=== PATIENT | male | born 1950 | race Caucasian/White ===

== ENCOUNTER → 2016-10-03 | Outpatient (CLI) | payer BC ==
[~2016-10-03] MED LIST: HYDC25 PO; IBUP-1050 PO; LISI20TA3 PO; PRLSR20 PO; RXC5 PO; SIMV40TA2 PO; SIMV80TA2 PO
[2016-10-03 13:46] LABS: ESTIMATED AVERAGE GLUCOSE 123 mg/dl; HA1C FLAG Normal (Normal)
[2016-10-03 13:48] LABS: BLOOD UREA NITROGEN 15 mg/dl (7-18); CREATININE 0.92 mg/dl (0.60-1.40); GLUCOSE 101 mg/dl (70-99)
[2016-10-03 13:49] LABS: ALT/SGPT 22 U/L (12-78); AST/SGOT 14 U/L (15-37); BUN/CREATININE RATIO 15.8 (10-20); CALCIUM 9.1 mg/dl (8.5-10.1); CARBON DIOXIDE 29 mmol/L (21-32); CHLORIDE 102 mmol/L (98-107); CHOLESTEROL 151 mg/dl (0-200); POTASSIUM 3.8 mmol/L (3.5-5.1); SODIUM 140 mmol/L (136-145); TRIGLYCERIDES 90 mg/dl (0-150); VERY LOW DENSITY LIPOPROT CALC 18 mg/dl
[2016-10-03 13:52] LABS: ALB/GLOB RATIO 1.3 (0.9-2); ALKALINE PHOSPHATASE 38 U/L (45-117); CHOLESTEROL/HDL RATIO 2.6; HDL CHOLESTEROL 58 mg/dl
== END | disposition home or self-care (01) ==
LOC: C.LABSPEC 12:31
PROVIDERS: ATTEND Internal Medicine
DX: Z11.59 Encounter for screening for other viral diseases (principal); I10 Essential (primary) hypertension; E78.5 Hyperlipidemia, unspecified; R73.9 Hyperglycemia, unspecified

== ENCOUNTER → 2016-10-31 | Day surgery (SDC) | payer BC ==
[2016-10-23 09:43] VITALS: Ht 165.1 cm; Wt 102.3 kg
[~2016-10-31] VITALS: Ht 165.1 cm; Wt 102.3 kg
[~2016-10-31] MED LIST changes: -IBUP-1050 PO; +LIDOCAINE HCL 2% 2 ML VIAL (20MG/ML) ONE; +PROPOFOL IV EMULSION 10 MG/ML 20 ML VIAL IV ONE; -RXC5 PO; -SIMV80TA2 PO
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
--- NOTE | 2016-10-31 14:47 | Discharge Instructions ---
Endoscopy Patient Instructions Date / Procedure(s) Performed Oct 31, 2016. Colonoscopy Allergy Information Coded Allergies: No Known Allergies (Verified , 10/23/16) Discharge Date / Findings Oct 31, 2016. polyp, diverticulosis Medication Instructions Restart Stopped Medication(s): resume meds Reported Home Medications Medications Dose Route/Sig Max Daily Dose Days Date Category Zocor (Simvastatin) 40 Mg Tab 40 Mg PO QPM 10/23/16 Reported Hctz * (Hydrochlorothiazide) 25 Mg Tab 25 Mg PO QAM 06/10/11 Reported Prilosec (Omeprazole) 20 Mg Capcr 20 Mg PO QAM 06/10/11 Reported Prinivil (Lisinopril) 20 Mg Tab 20 Mg PO QAM 06/10/11 Reported Provider Instructions Activity Restrictions - No exercising or heavy lifting for 24 hours. - Do not drink alcohol the day of the procedure. - Do not drive a car or operate machinery until the day after the procedure. - Do not make any important decisions or sign important papers in 24 hours after the procedure. Following Day: - Return to full activity which may include returning to work/school. Diet Start your diet with liquids and light foods (jello, soup, juice, toast). Then eat your usual diet if not nauseated. Treatment For Common After Affects For mild abdominal pain, bloating, or excessive gas: - Rest - Eat lightly - Lie on right side Follow-Up Information Follow-up with Dr. Arevalo as scheduled Anesthesia Information What You Should Know You have had a procedure that required some medicine to reduce anxiety and discomfort. This treatment is called moderate sedation. After receiving the treatment, you may be sleepy, but you will be able to breathe on your own. The effects of the treatment may last for several hours. Follow these instructions along with Activity/Diet recommendations noted above: * Do NOT do anything where dizziness or clumsiness would be dangerous. * Rest quietly at home today, then you can be up and about tomorrow. * Have a responsible person stay with you the rest of today. * You may have had an I.V. today. If so, you may take the dressing off later today. Recommendations Call your doctor if: * Trouble breathing * Continuous vomiting for more than 24 hours * Temperature above 101 degrees * Severe abdominal pain or bloating * Pain not relieved by pain medicine ordered * There is increased drainage or redness from any incision * A large amount of rectal bleeding greater than 2-3 tablespoons. (If you had a polyp/s removed or have hemorrhoids, a small amount of blood - from the rectum is to be expected.) * You have any unanswered questions or concerns. IN THE EVENT OF A SERIOUS EMERGENCY, GO TO THE NEAREST EMERGENCY ROOM Your discharge instructions were prepared by provider Emmanuel Arellano. Patient Instructions Signature Page Milton Martinez Patient (or Guardian) Signature/Date: I have read and understand the instructions given to me by my caregivers. Caregiver/RN/Doctor Signature/Date: The above-named patient and/or guardian has received patient instructions on this date. + Original Patient Signature Page (only) stays with chart. Please make copy for patient.
--- NOTE | 2016-10-31 14:50 | GI REPORT ---
Procedure Date: 10/31/2016 1:50 PM Procedure: Colonoscopy Indications: Screening for colorectal malignant neoplasm Medicines: Propofol total dose 280 mg IV, Lidocaine 40 mg IV Complications: No immediate complications. Estimated Blood Loss: Estimated blood loss was minimal. Procedure: Pre-Anesthesia Assessment: - Prior to the procedure, a History and Physical was performed, and patient medications, allergies and sensitivities were reviewed. The patient's tolerance of previous anesthesia was reviewed. - The risks and benefits of the procedure and the sedation options and risks were discussed with the patient. All questions were answered and informed consent was obtained. After I obtained informed consent, the scope was passed under direct vision. Throughout the procedure, the patient's blood pressure, pulse, and oxygen saturations were monitored continuously. The Scope was introduced through the anus and advanced to the terminal ileum. The colonoscopy was performed without difficulty. The patient tolerated the procedure well. The quality of the bowel preparation was excellent. Findings: A 5 mm polyp was found in the proximal ascending colon. The polyp was sessile. The polyp was removed with a hot snare. Resection and retrieval were complete. To prevent bleeding post-intervention, one hemostatic clip was successfully placed (MR conditional). There was no bleeding at the end of the procedure. Estimated blood loss was minimal. Multiple diverticula were found in the sigmoid colon. The terminal ileum appeared normal. Impression: - One 5 mm polyp in the proximal ascending colon, removed with a hot snare. Resected and retrieved. Clip (MR conditional) was placed. - Diverticulosis in the sigmoid colon. - The examined portion of the ileum was normal. Recommendation: - Discharge patient to home (ambulatory). - Continue present medications. - Await pathology results. - Return to primary care physician PRN. Emmanuel Arellano M.D. Emmanuel Arellano MD 10/31/2016 2:49:19 PM This report has been signed electronically. Note Initiated On: 10/31/2016 1:50 PM I attest to the content of the Intraoperative Record and orders documented therein, exceptions below
--- NOTE | 2016-10-31 14:59 | Anesthesiology Progress Note ---
Anesthesia Post Op Note Date & Time Oct 31, 2016 at 14:58 Vital Signs Pain Intensity: 0 Vital Signs Past 12 Hours Date Time Temp Pulse Resp B/P Pulse Ox O2 Delivery O2 Flow Rate FiO2 10/31/16 14:48 72 20 129/67 95 Room Air 10/31/16 13:44 36.6 90 20 142/89 94 Room Air Notes Mental Status: alert / awake / arousable, participated in evaluation Pt Amnestic to Procedure: Yes Nausea / Vomiting: adequately controlled Pain: adequately controlled Airway Patency, RR, SpO2: stable & adequate BP & HR: stable & adequate Hydration State: stable & adequate Anesthetic Complications: no major complications apparent
[2016-10-31 15:35] VITALS: BP 158/87; PULSE 74; O2SAT 95
== END | disposition home or self-care (01) ==
LOC: C.GI 13:27
PROVIDERS: ATTEND Internal Medicine Gastroenterology
DX: Z12.11 Encounter for screening for malignant neoplasm of colon (principal); D12.2 Benign neoplasm of ascending colon; K57.30 Diverticulosis of large intestine without perforation or abscess without bleeding; Z79.899 Other long term (current) drug therapy

== ENCOUNTER → 2017-04-06 | Outpatient (CLI) | payer BC ==
[~2017-04-06] MED LIST changes: -LIDOCAINE HCL 2% 2 ML VIAL (20MG/ML) ONE; -PROPOFOL IV EMULSION 10 MG/ML 20 ML VIAL IV ONE
[2017-04-06 13:15] LABS: BLOOD UREA NITROGEN 14 mg/dl (7-18); BUN/CREATININE RATIO 15.2 (10-20); CALCIUM 9.4 mg/dl (8.5-10.1); CARBON DIOXIDE 29 mmol/L (21-32); CHLORIDE 101 mmol/L (98-107); CHOLESTEROL 170 mg/dl (0-200); CREATININE 0.91 mg/dl (0.60-1.40); GLUCOSE 90 mg/dl (70-99); POTASSIUM 3.9 mmol/L (3.5-5.1); SODIUM 138 mmol/L (136-145); TRIGLYCERIDES 133 mg/dl (0-150); VERY LOW DENSITY LIPOPROT CALC 27 mg/dl
[2017-04-06 13:18] LABS: CHOLESTEROL/HDL RATIO 2.9; HDL CHOLESTEROL 59 mg/dl
[2017-04-06 13:31] LABS: ESTIMATED AVERAGE GLUCOSE 126 mg/dl; HA1C FLAG Normal (Normal)
== END | disposition home or self-care (01) ==
LOC: C.LABSPEC 12:31
PROVIDERS: ATTEND Internal Medicine
DX: I10 Essential (primary) hypertension (principal); E78.5 Hyperlipidemia, unspecified; R73.9 Hyperglycemia, unspecified

== ENCOUNTER → 2017-06-05 | Outpatient (CLI) | payer BC ==
[2017-06-05 12:10] LABS: BASO % 0.1 %; BASO ABS # 0.02 K/uL (0-0.2); COMPLETE YES; EOS % 0.9 %; HEMATOCRIT 42.8 % (42-52); IG% 1.7 %; LYMPH % 18.1 %; LYMPH ABS # 3.58 K/uL (1.2-3.4); MEAN CELL VOLUME 92.8 fL (80-100); MEAN CORPUSCULAR HEMOGLOBIN 31.2 pg (25-34); MEAN CORPUSCULAR HGB CONC 33.6 g/dl (32-36); MEAN PLATELET VOLUME 9.4 fL (7.4-10.4); MONO % 9.8 %; NEUT % 69.4 %; PLATELET COUNT 215 K/uL (130-400); RED BLOOD COUNT 4.61 M/uL (4.7-6.1)
[2017-06-05 12:50] LABS: LYME DISEASE AB IGG NEG (NEG); LYME DISEASE AB IGM NEG (NEG)
== END | disposition home or self-care (01) ==
LOC: C.LAB 10:31
PROVIDERS: ATTEND Physician Assistant
DX: H91.21 Sudden idiopathic hearing loss, right ear (principal)

== ENCOUNTER → 2017-10-07 | Outpatient (CLI) | payer BC ==
[2017-10-07 13:15] LABS: BASO % 0.2 %; BASO ABS # 0.02 K/uL (0-0.2); EOS ABS # 0.17 K/uL (0-0.5); HEMOGLOBIN 14.5 g/dL (14.0-18.0); IG# 0.05 K/uL (0.00-0.02); LYMPH % 31.5 %; LYMPH ABS # 2.72 K/uL (1.2-3.4); MEAN CELL VOLUME 92.4 fL (80-100); MEAN CORPUSCULAR HEMOGLOBIN 30.5 pg (25-34); MEAN PLATELET VOLUME 10.6 fL (7.4-10.4); MONO % 8.1 %; NEUT % 57.6 %; NEUT ABS # 4.98 K/uL (1.4-6.5); PLATELET COUNT 220 K/uL (130-400); RED CELL DISTRIBUTION WIDTH CV 13.7 % (11.5-14.5); RED CELL DISTRIBUTION WIDTH SD 46.1 fL (36.4-46.3); WHITE BLOOD COUNT 8.64 K/uL (4.8-10.8)
[2017-10-07 13:24] LABS: ALT/SGPT 31 U/L (12-78); AST/SGOT 15 U/L (15-37); BLOOD UREA NITROGEN 19 mg/dl (7-18); CALCIUM 9.1 mg/dl (8.5-10.1); CARBON DIOXIDE 30 mmol/L (21-32); CHOLESTEROL 175 mg/dl (0-200); CREATININE 0.95 mg/dl (0.60-1.40); GLUCOSE 95 mg/dl (70-99); POTASSIUM 3.8 mmol/L (3.5-5.1); SODIUM 137 mmol/L (136-145)
[2017-10-07 13:26] LABS: ALKALINE PHOSPHATASE 40 U/L (45-117); LDL CHOLESTEROL (DIRECT) 93 mg/dl; TOTAL PROTEIN 7.2 gm/dl (6.4-8.2)
== END | disposition home or self-care (01) ==
LOC: C.LABSPEC 12:40
PROVIDERS: ATTEND Internal Medicine
DX: I10 Essential (primary) hypertension (principal); E78.5 Hyperlipidemia, unspecified; R73.9 Hyperglycemia, unspecified; D72.829 Elevated white blood cell count, unspecified

== ENCOUNTER → 2018-02-12 | Outpatient (CLI) | payer OTHER ==
[2018-02-12 14:11] LABS: BASO % 0.4 %; BASO ABS # 0.03 K/uL (0-0.2); EOS ABS # 0.24 K/uL (0-0.5); HEMATOCRIT 40.9 % (42-52); HEMOGLOBIN 13.5 g/dL (14.0-18.0); IG# 0.04 K/uL (0.00-0.02); LYMPH % 33.9 %; LYMPH ABS # 2.75 K/uL (1.2-3.4); MEAN CELL VOLUME 93.6 fL (80-100); MEAN CORPUSCULAR HEMOGLOBIN 30.9 pg (25-34); MEAN PLATELET VOLUME 10.3 fL (7.4-10.4); MONO ABS # 0.57 K/uL (0.11-0.59); NEUT % 55.2 %; NEUT ABS # 4.49 K/uL (1.4-6.5); PLATELET COUNT 202 K/uL (130-400); RED CELL DISTRIBUTION WIDTH CV 13.8 % (11.5-14.5); RED CELL DISTRIBUTION WIDTH SD 47.5 fL (36.4-46.3); WHITE BLOOD COUNT 8.12 K/uL (4.8-10.8)
[2018-02-12 14:49] LABS: ALBUMIN 3.8 gm/dl (3.4-5.0); ALKALINE PHOSPHATASE 36 U/L (45-117); ALT/SGPT 30 U/L (12-78); AST/SGOT 21 U/L (15-37); BLOOD UREA NITROGEN 19 mg/dl (7-18); CALCIUM 8.8 mg/dl (8.5-10.1); CARBON DIOXIDE 28 mmol/L (21-32); CREATININE 0.93 mg/dl (0.60-1.40); GLUCOSE 150 mg/dl (70-99); POTASSIUM 3.8 mmol/L (3.5-5.1); SODIUM 140 mmol/L (136-145)
== END | disposition home or self-care (01) ==
LOC: C.LABSPEC 13:02
PROVIDERS: ATTEND Internal Medicine
DX: R60.9 Edema, unspecified (principal)

== ENCOUNTER → 2018-02-15 | Outpatient (CLI) | payer OTHER ==
--- NOTE | 2018-02-15 13:00 | DIAGNOSTIC IMAGING REPORT ---
ULTRASOUND VENOUS DOPPLER LWR EXT BILA CLINICAL HISTORY: BILATERAL LEG SWELLING COMPARISON STUDY: No previous studies for comparison. FINDINGS: Real-time and color flow Doppler imaging were performed. Flow was seen within the femoral, popliteal and calf veins with no intraluminal thrombus demonstrated. The saphenous vein is patent. IMPRESSION: No evidence of lower extremity DVT. Electronically signed by: Ant Montes M.D. 02/15/2018 12:59 PM Dictated Date/Time: 02/15/2018 12:59 PM
== END | disposition home or self-care (01) ==
LOC: C.ULTRBC 12:24
PROVIDERS: ATTEND Internal Medicine
DX: R60.0 Localized edema (principal)

== ENCOUNTER 2020-05-21 15:55 | Inpatient (IN) ==
[2020-05-21] MEDS ORDERED: DEXAMETHASONE SOD PHOSPHATE 6 MG in SYRINGE 0 ML IV STA (16:23)
[2020-05-21] MEDS ORDERED: ALBUT/IPRATROP 3MG/0.5MG NEB 3 ML VIAL NEB STA ×2 (16:23→16:24)
--- NOTE | 2020-05-21 16:30 | Emergency Department Note ---
History of Present Illness General Chief complaint: Illness Stated complaint: DOUBLE PNEUMONIA Time Seen by Provider: 05/21/20 16:06 History of Present Illness Provider complaint: Cough difficulty breathing Onset (ago): day(s) 3 Location: chest Maximum Pain Intensity: 7 Associated symptoms: + cough and + shortness of breath; no fever/chills and no syncope 69-year-old male presents emergency department for difficulty breathing and cough. Patient was sent by his PCP Dr. Arevalo who diagnosed him with bilateral pneumonia. Patient states he has been having difficulty breathing cough the last 3 days. He reports no fevers. He does report diarrhea. He reports his is also been sick at home. His has had loss of taste and smell. Patient was tested for COVID-[address] Arevalo's office today. No history of COPD or CHF. Home Medications Home Medications Medication Instructions Recorded Confirmed Type furosemide 40 mg PO DAILY 05/21/20 05/21/20 History lisinopril 20 mg PO DAILY 05/21/20 05/21/20 History omeprazole 20 mg PO DAILY 05/21/20 05/21/20 History potassium chloride 10 meq PO BID 05/21/20 05/21/20 History simvastatin 80 mg PO DAILY 05/21/20 05/21/20 History tamsulosin 0.4 mg PO DAILY 05/21/20 05/21/20 History Allergies Allergy/AdvReac Type Severity Reaction Status Date / Time No Known Allergies Allergy Unknown Verified 05/21/20 18:06 Past Med/Surg History Medical History (Updated 05/21/20 @ 21:48 by Bill Mcqueen) HLD (hyperlipidemia) HTN (hypertension) No pertinent family history Surgical History (Updated 05/21/20 @ 17:35 by Bill Mcqueen) No pertinent past surgical history Social History Smoking Status: Never smoker Feels Safe at Home: Yes Review of Systems A total of 10 systems reviewed and were otherwise negative Physical Exam Vital Signs Vital Signs - 24 hr 05/21/20 16:05 05/21/20 16:25 05/21/20 16:33 Temperature 36.5 C Temperature Source Oral Pulse Rate 99 H Pulse Rate [Right Finger] 99 H 99 H Pulse Rate from SpO2 Sensor Respiratory Rate 26 H 22 20 Respiratory Effort / Characteristics Spontaneous Spontaneous Blood Pressure 175/112 H Blood Pressure Mean 133 Blood Pressure Position Sitting Pulse Oximetry 55 L 90 90 Oxygen Delivery Method Room Air High Flow Nasal Cannula High Flow Nasal Cannula Oxygen Flow Rate 30 30 Fraction of Inspired Oxygen 60 60 Sepsis Recent Fever Within 48 Hours Yes Sepsis New/Unexplained Change in Mental Status No Sepsis Action Taken by Nursing No Action Required 05/21/20 16:41 05/21/20 16:45 05/21/20 16:49 Temperature Temperature Source Pulse Rate 96 H 96 H Pulse Rate [Right Finger] Pulse Rate from SpO2 Sensor 96 H 96 H Respiratory Rate 21 21 Respiratory Effort / Characteristics Spontaneous Blood Pressure 169/105 H 163/89 H Blood Pressure Mean 114 114 Blood Pressure Position Pulse Oximetry 93 92 93 Oxygen Delivery Method High Flow Nasal Cannula Oxygen Flow Rate Fraction of Inspired Oxygen Sepsis Recent Fever Within 48 Hours Sepsis New/Unexplained Change in Mental Status Sepsis Action Taken by Nursing 05/21/20 16:50 05/21/20 17:08 05/21/20 17:15 Temperature Temperature Source Pulse Rate 97 H 97 H Pulse Rate [Right Finger] 100 H Pulse Rate from SpO2 Sensor 97 H Respiratory Rate 22 18 18 Respiratory Effort / Characteristics Spontaneous Blood Pressure 163/92 H Blood Pressure Mean 125 Blood Pressure Position Pulse Oximetry 93 93 Oxygen Delivery Method High Flow Nasal Cannula High Flow Nasal Cannula Oxygen Flow Rate 30 30 Fraction of Inspired Oxygen 75 Sepsis Recent Fever Within 48 Hours Sepsis New/Unexplained Change in Mental Status Sepsis Action Taken by Nursing 05/21/20 17:30 05/21/20 17:45 05/21/20 17:46 Temperature Temperature Source Pulse Rate 97 H 107 H 104 H Pulse Rate [Right Finger] Pulse Rate from SpO2 Sensor 97 H 107 H 103 H Respiratory Rate 18 21 18 Respiratory Effort / Characteristics Blood Pressure 179/92 H 186/106 H Blood Pressure Mean 108 156 Blood Pressure Position Pulse Oximetry 95 91 95 Oxygen Delivery Method Oxygen Flow Rate Fraction of Inspired Oxygen Sepsis Recent Fever Within 48 Hours Sepsis New/Unexplained Change in Mental Status Sepsis Action Taken by Nursing 05/21/20 18:01 05/21/20 18:30 Temperature Temperature Source Pulse Rate 106 H 101 H Pulse Rate [Right Finger] Pulse Rate from SpO2 Sensor 105 H 101 H Respiratory Rate 24 19 Respiratory Effort / Characteristics Blood Pressure 162/118 H 166/87 H Blood Pressure Mean 125 111 Blood Pressure Position Pulse Oximetry 91 91 Oxygen Delivery Method High Flow Nasal Cannula Oxygen Flow Rate Fraction of Inspired Oxygen Sepsis Recent Fever Within 48 Hours Sepsis New/Unexplained Change in Mental Status Sepsis Action Taken by Nursing Physical Exam GENERAL: He is oriented to person, place, and time. He appears well-developed and well-nourished. He does not appear distressed. HENT: Exam performed. - Head: Normocephalic and atraumatic. - Right Ear: External ear normal. No mastoid tenderness. - Left Ear: External ear normal. No mastoid tenderness. - Mouth/Throat: The oropharynx is clear and moist. No trismus in the jaw. No dental abscesses or uvula swelling. No oropharyngeal exudate or tonsillar abscesses. EYES: Conjunctivae and EOM are normal. Pupils are equal, round, and reactive to light. Right eye exhibits no discharge. Left eye exhibits no discharge. No scleral icterus. NECK: Normal range of motion. Neck supple. No JVD present. No spinous process tenderness present. No carotid bruit present. No rigidity. No tracheal deviation and normal range of motion present. No Brudzinski's sign and no Kernig's sign noted. CV: Normal rate, regular rhythm, normal heart sounds and intact distal pulses. There is no peripheral edema. Palpable radial pulses bue. PULM/CHEST: Expiratory wheezes bilaterally. - Chest Wall: He exhibits no tenderness. ABD: The abdomen is soft. Bowel sounds are normal. He has no distension. No mass is present. There is no tenderness. There is no rebound, no guarding, no Schroeder's sign and no tenderness at McBurney's point. Rovsig negative. MUSC/SKEL: Normal range of motion. There is no peripheral edema, tenderness or deformity. LYMPH: No cervical adenopathy. NEURO: He is alert and oriented to person, place, and time. He has normal strength. No cranial nerve deficit or sensory deficit. Coordination and gait normal. GCS eye subscore is 4. GCS verbal subscore is 5. GCS motor subscore is 6. Cerebellar tests wnl. SKIN: Skin is warm and dry. He is not diaphoretic. PSYCH: He has a normal mood and affect. Behavior is normal. Judgment and thought content normal. Course Course 160: The patient was evaluated in room A4. A complete history and physical exam was performed. Patient was seen in full airborne precautions. Patient was placed on environmental monitoring specialist and continuous pulse oximetry. Patient's oxygen saturation on room air was 55%. Patient was placed on 6 L Ventimask which only improved his oxygen saturation 85% oxygen saturation. Respiratory therapy was called and asked to start the patient on high flow nasal cannula. There is high suspicion that the patient might be suffering from COVID-19 given his symptoms as well as symptoms. Patient will be given 2 DuoNeb's. Decadron 6 mg IV push was immediately ordered for the patient. Cardiac monitoring: An order was placed for continuous cardiac monitoring. The monitor shows a rate of 90 with sinus rhythm 1730: Patient's oxygen saturation was going into the 80s on 60% oxygen via high flow nasal cannula. Patient's ABG showed a PO2 of 64. And oxygen saturation of 90.9. Patient was switched to 90% oxygen high flow nasal cannula which improved his oxygen saturation. 1810: Patient is not tachypneic. He is he is in no respiratory distress and tolerating the high flow nasal cannula well. Patient's pulse oximetry is 95% over 90% high flow oxygen. ABG showed a PO2 of 68 and AV O2 saturation of 92.5%. 1910: Vital signs stable on high flow oxygen via nasal cannula. Patient is not tachypneic on high flow oxygen nasal cannula. CTA of the chest shows no PE but does show multifocal airspace opacities throughout both lungs. Patient was COVID-19 positive. Patient will be admitted to the [facility] team Dr. Cho made aware. Administered Medications Discontinued Medications Albuterol (Albut/Ipratrop 3mg/0.5mg Neb 3 Ml Vial) 3 ml NEB NOW STA Stop: 05/21/20 16:24 Last Admin: 05/21/20 16:33 Dose: 3 ml Documented by: [id number] Albuterol (Albut/Ipratrop 3mg/0.5mg Neb 3 Ml Vial) 3 ml NEB NOW STA Stop: 05/21/20 16:25 Last Admin: 05/21/20 16:33 Dose: 3 ml Documented by: [id number] Dexamethasone Sodium Phosphate (6 mg/ Syringe) 1.5 mls @ 1 mls/min IV NOW STA Stop: 05/21/20 16:24 Last Admin: 05/21/20 16:37 Dose: 1 mls/min Documented by: [id number] Ioversol (Optiray 320 125ml) 118 ml IV ONCE ONE Stop: 05/21/20 17:38 Last Admin: 05/21/20 17:37 Dose: 1 ml Documented by: [id number] Critical Care Time Critical Care Time: Yes Total Critical Care Time: 76 I have personally spent greater than 76 minutes of critical care time in the direct management of this patient. This includes bedside care, interpretation of diagnostic studies, and testing, discussion with consultants, patient, and family members, and other required patient management activities. This 76 minutes is in excess of all separately billable procedures. Medical Decision Making Laboratory Data Result diagrams: 05/21/20 16:23 05/21/20 16:23 Lab Results 05/21/20 05/21/20 05/21/20 Range/Units 16:23 16:23 16:23 WBC 9.44 (4.8-10.8) K/uL RBC 4.08 L (4.7-6.1) M/uL Hgb 12.4 L (14.0-18.0) g/dL POC Hgb (14.0-18.0) g/dl Hct 38.0 L (42-52) % POC Hct (42-52) % MCV 93.1 (80-100) fL MCH 30.4 (25-34) pg MCHC 32.6 (32-36) g/dL RDW Std Deviation 49.2 H (36.4-46.3) fL RDW Coeff of Keenan 14.5 (11.5-14.5) % Plt Count 204 (130-400) K/uL MPV 10.1 (7.4-10.4) fL Immature Gran % (Auto) 1.0 % Neut % (Auto) 84.4 % Lymph % (Auto) 11.1 % [place] % (Auto) 3.4 % Eos % (Auto) 0.0 % Baso % (Auto) 0.1 % Neut # (Auto) 7.97 H (1.4-6.5) K/uL Lymph # (Auto) 1.05 L (1.2-3.4) K/uL [place] # (Auto) 0.32 (0.11-0.59) K/uL Eos # (Auto) 0.00 (0-0.5) K/uL Baso # (Auto) 0.01 (0-0.2) K/uL Immature Gran # (Auto) 0.09 H (0.00-0.02) K/uL PT 10.7 (9.0-12.0) Seconds INR 1.0 (0.9-1.1) APTT 29.8 (21.0-31.0) Seconds PTT Ratio 1.1 ABG pH (7.35-7.45) ABG pCO2 (35-46) mmHg ABG pO2 (80-95) mmHg ABG HCO3 (19-24) mmol/L ABG O2 Saturation (90-95) % ABG Base Excess (-9-1.8) mEq/L Jaden Test (Pos) Barometric Pressure mm/Hg Oxygen Given POC Sodium (135-144) mmol/L Sodium 137 (136-145) mmol/L POC Potassium (3.3-5.0) mmol/L Potassium 4.1 (3.5-5.1) mmol/L POC Chloride (101-112) mmol/L Chloride 104 (98-107) mmol/L Carbon Dioxide 27 (21-32) mmol/L POC Total CO2 (24-31) mmol/L Anion Gap 6.0 (3-11) POC Anion Gap (16-25) mmol/L POC BUN (7-18) mg/dl BUN 12 (7-18) mg/dl Creatinine 1.01 (0.6-1.4) mg/dl POC Creatinine (0.6-1.3) mg/dl Est Cr Clr Drug Dosing 89.2 ml/min Est GFR ( Amer) 88.8 Est GFR (Non-Af Amer) 76.6 BUN/Creatinine Ratio 11.8 (10-20) Glucose 130 H (70-99) mg/dl POC Glucose (other) (70-99) mg/dl Lactate (0.4-2.0) mmol/L Calcium 8.2 L (8.5-10.1) mg/dl POC Ioniz Calcium Ej (1.12-1.32) mmol/l Magnesium 1.7 L (1.8-2.4) mg/dl Total Bilirubin 0.4 (0.2-1) mg/dl AST 79 H (15-37) U/L ALT 68 (12-78) U/L Alkaline Phosphatase 42 L (45-117) U/L Troponin I 0.029 (0-0.045) ng/ml NT-Pro-B Natriuret Pep 391 (0-900) pg/ml Total Protein 7.2 (6.4-8.2) gm/dl Albumin 2.7 L (3.4-5.0) gm/dl Globulin 4.5 H (2.5-4.0) gm/dl Albumin/Globulin Ratio 0.6 L (0.9-2) Procalcitonin (0-0.5) ng/ml COVID-19 Eval Order COVID-19 PCR (Negative) 05/21/20 05/21/20 05/21/20 Range/Units 16:23 16:23 16:29 WBC (4.8-10.8) K/uL RBC (4.7-6.1) M/uL Hgb (14.0-18.0) g/dL POC Hgb (14.0-18.0) g/dl Hct (42-52) % POC Hct (42-52) % MCV (80-100) fL MCH (25-34) pg MCHC (32-36) g/dL RDW Std Deviation (36.4-46.3) fL RDW Coeff of Keenan (11.5-14.5) % Plt Count (130-400) K/uL MPV (7.4-10.4) fL Immature Gran % (Auto) % Neut % (Auto) % Lymph % (Auto) % [place] % (Auto) % Eos % (Auto) % Baso % (Auto) % Neut # (Auto) (1.4-6.5) K/uL Lymph # (Auto) (1.2-3.4) K/uL [place] # (Auto) (0.11-0.59) K/uL Eos # (Auto) (0-0.5) K/uL Baso # (Auto) (0-0.2) K/uL Immature Gran # (Auto) (0.00-0.02) K/uL PT (9.0-12.0) Seconds INR (0.9-1.1) APTT (21.0-31.0) Seconds PTT Ratio ABG pH (7.35-7.45) ABG pCO2 (35-46) mmHg ABG pO2 (80-95) mmHg ABG HCO3 (19-24) mmol/L ABG O2 Saturation (90-95) % ABG Base Excess (-9-1.8) mEq/L Jaden Test (Pos) Barometric Pressure mm/Hg Oxygen Given POC Sodium (135-144) mmol/L Sodium (136-145) mmol/L POC Potassium (3.3-5.0) mmol/L Potassium (3.5-5.1) mmol/L POC Chloride (101-112) mmol/L Chloride (98-107) mmol/L Carbon Dioxide (21-32) mmol/L POC Total CO2 (24-31) mmol/L Anion Gap (3-11) POC Anion Gap (16-25) mmol/L POC BUN (7-18) mg/dl BUN (7-18) mg/dl Creatinine (0.6-1.4) mg/dl POC Creatinine (0.6-1.3) mg/dl Est Cr Clr Drug Dosing ml/min Est GFR ( Amer) Est GFR (Non-Af Amer) BUN/Creatinine Ratio (10-20) Glucose (70-99) mg/dl POC Glucose (other) (70-99) mg/dl Lactate 1.7 (0.4-2.0) mmol/L Calcium (8.5-10.1) mg/dl POC Ioniz Calcium Ej (1.12-1.32) mmol/l Magnesium (1.8-2.4) mg/dl Total Bilirubin (0.2-1) mg/dl AST (15-37) U/L ALT (12-78) U/L Alkaline Phosphatase (45-117) U/L Troponin I (0-0.045) ng/ml NT-Pro-B Natriuret Pep (0-900) pg/ml Total Protein (6.4-8.2) gm/dl Albumin (3.4-5.0) gm/dl Globulin (2.5-4.0) gm/dl Albumin/Globulin Ratio (0.9-2) Procalcitonin 0.07 (0-0.5) ng/ml COVID-19 Eval Order Covid19 Done at [facility] COVID-19 PCR (Negative) 05/21/20 05/21/20 05/21/20 Range/Units 16:29 16:37 16:40 WBC (4.8-10.8) K/uL RBC (4.7-6.1) M/uL Hgb (14.0-18.0) g/dL POC Hgb 14.3 (14.0-18.0) g/dl Hct (42-52) % POC Hct 42 (42-52) % MCV (80-100) fL MCH (25-34) pg MCHC (32-36) g/dL RDW Std Deviation (36.4-46.3) fL RDW Coeff of Keenan (11.5-14.5) % Plt Count (130-400) K/uL MPV (7.4-10.4) fL Immature Gran % (Auto) % Neut % (Auto) % Lymph % (Auto) % [place] % (Auto) % Eos % (Auto) % Baso % (Auto) % Neut # (Auto) (1.4-6.5) K/uL Lymph # (Auto) (1.2-3.4) K/uL [place] # (Auto) (0.11-0.59) K/uL Eos # (Auto) (0-0.5) K/uL Baso # (Auto) (0-0.2) K/uL Immature Gran # (Auto) (0.00-0.02) K/uL PT (9.0-12.0) Seconds INR (0.9-1.1) APTT (21.0-31.0) Seconds PTT Ratio ABG pH 7.38 (7.35-7.45) ABG pCO2 44 (35-46) mmHg ABG pO2 64 L (80-95) mmHg ABG HCO3 25 H (19-24) mmol/L ABG O2 Saturation 90.9 (90-95) % ABG Base Excess 0.2 (-9-1.8) mEq/L Jaden Test Pos (Pos) Barometric Pressure 735.0 mm/Hg Oxygen Given 60% POC Sodium 138 (135-144) mmol/L Sodium (136-145) mmol/L POC Potassium 4.0 (3.3-5.0) mmol/L Potassium (3.5-5.1) mmol/L POC Chloride 100 L (101-112) mmol/L Chloride (98-107) mmol/L Carbon Dioxide (21-32) mmol/L POC Total CO2 26 (24-31) mmol/L Anion Gap (3-11) POC Anion Gap 17.0 (16-25) mmol/L POC BUN 12 (7-18) mg/dl BUN (7-18) mg/dl Creatinine (0.6-1.4) mg/dl POC Creatinine 0.9 (0.6-1.3) mg/dl Est Cr Clr Drug Dosing ml/min Est GFR ( Amer) Est GFR (Non-Af Amer) BUN/Creatinine Ratio (10-20) Glucose (70-99) mg/dl POC Glucose (other) 135 H (70-99) mg/dl Lactate (0.4-2.0) mmol/L Calcium (8.5-10.1) mg/dl POC Ioniz Calcium Ej 1.06 L (1.12-1.32) mmol/l Magnesium (1.8-2.4) mg/dl Total Bilirubin (0.2-1) mg/dl AST (15-37) U/L ALT (12-78) U/L Alkaline Phosphatase (45-117) U/L Troponin I (0-0.045) ng/ml NT-Pro-B Natriuret Pep (0-900) pg/ml Total Protein (6.4-8.2) gm/dl Albumin (3.4-5.0) gm/dl Globulin (2.5-4.0) gm/dl Albumin/Globulin Ratio (0.9-2) Procalcitonin (0-0.5) ng/ml COVID-19 Eval Order COVID-19 PCR POSITIVE A* (Negative) 05/21/20 Range/Units 18:07 WBC (4.8-10.8) K/uL RBC (4.7-6.1) M/uL Hgb (14.0-18.0) g/dL POC Hgb (14.0-18.0) g/dl Hct (42-52) % POC Hct (42-52) % MCV (80-100) fL MCH (25-34) pg MCHC (32-36) g/dL RDW Std Deviation (36.4-46.3) fL RDW Coeff of Keenan (11.5-14.5) % Plt Count (130-400) K/uL MPV (7.4-10.4) fL Immature Gran % (Auto) % Neut % (Auto) % Lymph % (Auto) % [place] % (Auto) % Eos % (Auto) % Baso % (Auto) % Neut # (Auto) (1.4-6.5) K/uL Lymph # (Auto) (1.2-3.4) K/uL [place] # (Auto) (0.11-0.59) K/uL Eos # (Auto) (0-0.5) K/uL Baso # (Auto) (0-0.2) K/uL Immature Gran # (Auto) (0.00-0.02) K/uL PT (9.0-12.0) Seconds INR (0.9-1.1) APTT (21.0-31.0) Seconds PTT Ratio ABG pH 7.36 (7.35-7.45) ABG pCO2 44 (35-46) mmHg ABG pO2 68 L (80-95) mmHg ABG HCO3 24 (19-24) mmol/L ABG O2 Saturation 92.5 (90-95) % ABG Base Excess -1.7 (-9-1.8) mEq/L Jaden Test Pos (Pos) Barometric Pressure 734.9 mm/Hg Oxygen Given 90% POC Sodium (135-144) mmol/L Sodium (136-145) mmol/L POC Potassium (3.3-5.0) mmol/L Potassium (3.5-5.1) mmol/L POC Chloride (101-112) mmol/L Chloride (98-107) mmol/L Carbon Dioxide (21-32) mmol/L POC Total CO2 (24-31) mmol/L Anion Gap (3-11) POC Anion Gap (16-25) mmol/L POC BUN (7-18) mg/dl BUN (7-18) mg/dl Creatinine (0.6-1.4) mg/dl POC Creatinine (0.6-1.3) mg/dl Est Cr Clr Drug Dosing ml/min Est GFR ( Amer) Est GFR (Non-Af Amer) BUN/Creatinine Ratio (10-20) Glucose (70-99) mg/dl POC Glucose (other) (70-99) mg/dl Lactate (0.4-2.0) mmol/L Calcium (8.5-10.1) mg/dl POC Ioniz Calcium Ej (1.12-1.32) mmol/l Magnesium (1.8-2.4) mg/dl Total Bilirubin (0.2-1) mg/dl AST (15-37) U/L ALT (12-78) U/L Alkaline Phosphatase (45-117) U/L Troponin I (0-0.045) ng/ml NT-Pro-B Natriuret Pep (0-900) pg/ml Total Protein (6.4-8.2) gm/dl Albumin (3.4-5.0) gm/dl Globulin (2.5-4.0) gm/dl Albumin/Globulin Ratio (0.9-2) Procalcitonin (0-0.5) ng/ml COVID-19 Eval Order COVID-19 PCR (Negative) Imaging Data Radiologist's Impression: CT ANGIOGRAPHY OF THE CHEST, PULMONARY EMBOLUS PROTOCOL CLINICAL HISTORY: Shortness of breath. Evaluate for pulmonary embolus. COMPARISON STUDY: Chest radiograph performed earlier today TECHNIQUE: Following IV administration of 118 mL of Optiray-320, helical axial images of the chest were obtained utilizing the pulmonary embolus protocol. Maximal intensity projections and sagittal and coronal reformats were viewed on an independent 3D workstation. IV contrast was administered without complication. Automated exposure control was utilized for the study. A dose lowering technique was utilized adhering to the principles of ALARA. CT DOSE: 667.00 mGycm FINDINGS: No pulmonary embolus is identified although the segmental and subsegmental pulmonary arteries are suboptimally assessed due to respiratory motion and suboptimal opacification. There is no thoracic aortic dissection. Heart is moderately enlarged. There's no pericardial effusion. Several mildly enlarged mediastinal and bilateral hilar lymph nodes are noted. Index subcarinal lymph node measures 1.2 cm in short extremity. There is no pneumothorax. There are trace bilateral pleural effusions. There are extensive multifocal bilateral airspace opacities throughout the lungs. No cavitation is present. Central airways are patent. Several calcified thoracic lymph nodes are noted. No suspicious lesion within the bony thorax is noted. Water attenuation lesion within the upper pole of the left kidney is partially imaged. This measures at least 3.6 cm. This is incompletely imaged on this exam but favors a cyst. IMPRESSION: 1. No pulmonary embolus identified although segmental and subsegmental pulmonary arteries suboptimally assessed due to respiratory motion. 2. Extensive multifocal airspace opacities throughout both lungs. Findings represent an infectious process could this may reflect a viral or bacterial pneumonia. Follow-up chest CT in 2 months to ensure resolution is recommended. T race bilateral pleural effusions. 3. Moderate cardiomegaly. 4. Mildly enlarged mediastinal and bilateral hilar lymph nodes. These are likely reactive and can be assessed on follow-up CT. ACT 112: Negative or not required by law. Electronically signed by: Mateus Yeh M.D. 05/21/2020 5:57 PM Dictated: 05/21/[id number] Transcribed: 05/21/201746 XR chest 1V portable CLINICAL HISTORY: SEPSIS COMPARISON STUDY: Chest CT May 21, 2020 at 5:36 PM. Chest radiograph performed earlier today. FINDINGS: Extensive bilateral airspace opacities have progressed since chest CT performed earlier today. No pneumothorax or pleural effusion is noted. Cardiomegaly is unchanged. IMPRESSION: Progression of extensive bilateral airspace opacities. The findings favor an infectious process. Alveolar pulmonary edema could appear similar but is considered less likely. ACT 112: Negative or not required by law. Electronically signed by: Mateus Yeh M.D. 05/21/2020 6:39 PM Dictated: 05/21/201837 Transcribed: 05/21/201837 ECG Data Indication: + SOB/dyspnea Rate (beats per minute): 96 Rhythm: + normal sinus ECG Intervals/blocks: + Normal QRS, + Normal ND and + Normal QT-c ECG ST segments: + Normal ST segments [facility] Narrative 1606: The patient was evaluated in room A4. A complete history and physical exam was performed. Patient was seen in full airborne precautions. Patient was placed on environmental monitoring specialist and continuous pulse oximetry. Patient's oxygen saturation on room air was 55%. Patient was placed on 6 L Ventimask which only improved his oxygen saturation 85% oxygen saturation. Respiratory therapy was called and asked to start the patient on high flow nasal cannula. There is high suspicion that the patient might be suffering from COVID-19 given his symptoms as well as symptoms. Patient will be given 2 DuoNeb's. Decadron 6 mg IV push was immediately ordered for the patient. Cardiac monitoring: An order was placed for continuous cardiac monitoring. The monitor shows a rate of 90 with sinus rhythm 1730: Patient's oxygen saturation was going into the 80s on 60% oxygen via high flow nasal cannula. Patient's ABG showed a PO2 of 64. And oxygen saturation of 90.9. Patient was switched to 90% oxygen high flow nasal cannula which improved his oxygen saturation. 1810: Patient is not tachypneic. He is he is in no respiratory distress and tolerating the high flow nasal cannula well. Patient's pulse oximetry is 95% over 90% high flow oxygen. ABG showed a PO2 of 68 and AV O2 saturation of 92.5%. 1910: Vital signs stable on high flow oxygen via nasal cannula. Patient is not tachypneic on high flow oxygen nasal cannula. CTA of the chest shows no PE but does show multifocal airspace opacities throughout both lungs. Patient was COVID-19 positive. Patient will be admitted to the [facility] team Dr. Cho made aware. Impression & Plan Pneumonia due to 2019-nCoV, Hypoxia Discharge Plan Visit Data Chief Complaint: Illness Stated Complaint: DOUBLE PNEUMONIA ED Provider: Bill Mcqueen Discharge Problem: Pneumonia due to 2019-nCoV, Hypoxia Patient Disposition: Admitted As Inpatient Discharge Instructions Interventions: ED Discharge Assessment Last Done: 05/21/20 21:11
[2020-05-21 16:38] LABS: Basophils # (auto) 0.01 K/uL (0-0.2); Basophils % (auto) 0.1 %; Hemoglobin 12.4 g/dL (14.0-18.0); Immature Granulocytes # (auto) 0.09 K/uL (0.00-0.02); Lymphocytes # (auto) 1.05 K/uL (1.2-3.4); Lymphocytes % (auto) 11.1 %; Mean Corpuscular Hemoglobin 30.4 pg (25-34); Mean Corpuscular Hgb Conc 32.6 g/dL (32-36); Mean Corpuscular Volume 93.1 fL (80-100); Mean Platelet Volume 10.1 fL (7.4-10.4); Monocytes # (auto) 0.32 K/uL (0.11-0.59); Monocytes % (auto) 3.4 %; Neutrophils # (auto) 7.97 K/uL (1.4-6.5); Neutrophils % (auto) 84.4 %; Platelet Count 204 K/uL (130-400); RDW Coefficient of Variation 14.5 % (11.5-14.5); RDW Standard Deviation 49.2 fL (36.4-46.3); Red Blood Count 4.08 M/uL (4.7-6.1); White Blood Count 9.44 K/uL (4.8-10.8)
[2020-05-21 16:49] LABS: iSTAT Creatinine 0.9 mg/dl (0.6-1.3); iSTAT Hemoglobin 14.3 g/dl (14.0-18.0); iSTAT Ionized Calcium 1.06 mmol/l (1.12-1.32)
[2020-05-21 16:56] LABS: Allen Test Pos (Pos); Base Excess ABG 0.2 mEq/L (-9-1.8); HCO3 ABG 25 mmol/L (19-24); Oxygen Saturation ABG 90.9 % (90-95); PCO2 ABG 44 mmHg (35-46); PO2 ABG 64 mmHg (80-95); pH ABG 7.38 (7.35-7.45)
[2020-05-21 17:04] LABS: Albumin Level 2.7 gm/dl (3.4-5.0); BUN Creatinine Ratio 11.8 (10-20); Calcium 8.2 mg/dl (8.5-10.1); Creatinine Clr Calc Pharmacy 89.2 ml/min; Est GFR (African American) 88.8; Est GFR (Non-African American) 76.6; Magnesium 1.7 mg/dl (1.8-2.4); Potassium 4.1 mmol/L (3.5-5.1)
[2020-05-21 17:09] LABS: Albumin Globulin Ratio 0.6 (0.9-2); Bilirubin,Total 0.4 mg/dl (0.2-1); Globulin 4.5 gm/dl (2.5-4.0); Total Protein 7.2 gm/dl (6.4-8.2); Troponin I 0.029 ng/ml (0-0.045)
[2020-05-21 17:20] LABS: Partial Thromboplastin Ratio 1.1; Partial Thromboplastin Time 29.8 Seconds (21.0-31.0); Prothrombin Time 10.7 Seconds (9.0-12.0)
[2020-05-21] MEDS ORDERED: OPTIRAY 320 125ml IV ONE (17:37)
--- NOTE | 2020-05-21 17:59 | CT Scan Report ---
CT ANGIOGRAPHY OF THE CHEST, PULMONARY EMBOLUS PROTOCOL CLINICAL HISTORY: Shortness of breath. Evaluate for pulmonary embolus. COMPARISON STUDY: Chest radiograph performed earlier today TECHNIQUE: Following IV administration of 118 mL of Optiray-320, helical axial images of the chest we re obtained utilizing the pulmonary embolus protocol. Maximal intensity projections and sagittal and coronal reformats were viewed on an independent 3D workstation. IV contrast was administered withou t complication. Automated exposure control was utilized for the study. A dose lowering technique wa s utilized adhering to the principles of ALARA. CT DOSE: 667.00 mGycm FINDINGS: No pulmonary embolus is identified although the segmental and subsegmental pulmonary arter ies are suboptimally assessed due to respiratory motion and suboptimal opacification. There is no tho racic aortic dissection. Heart is moderately enlarged. There's no pericardial effusion. Several mildl y enlarged mediastinal and bilateral hilar lymph nodes are noted. Index subcarinal lymph node measure s 1.2 cm in short extremity. There is no pneumothorax. There are trace bilateral pleural effusions. T here are extensive multifocal bilateral airspace opacities throughout the lungs. No cavitation is pre sent. Central airways are patent. Several calcified thoracic lymph nodes are noted. No suspicious les ion within the bony thorax is noted. Water attenuation lesion within the upper pole of the left kidne y is partially imaged. This measures at least 3.6 cm. This is incompletely imaged on this exam but fa vors a cyst. IMPRESSION: 1. No pulmonary embolus identified although segmental and subsegmental pulmonary arteries suboptimall y assessed due to respiratory motion. 2. Extensive multifocal airspace opacities throughout both lungs. Findings represent an infectious pr ocess could this may reflect a viral or bacterial pneumonia. Follow-up chest CT in 2 months to ensure resolution is recommended. Trace bilateral pleural effusions. 3. Moderate cardiomegaly. 4. Mildly enlarged mediastinal and bilateral hilar lymph nodes. These are likely reactive and can be assessed on follow-up CT. ACT 112: Negative or not required by law. Electronically signed by: Mateus Yeh M.D. 05/21/2020 5:57 PM
[2020-05-21 18:21] LABS: Base Excess ABG -1.7 mEq/L (-9-1.8); HCO3 ABG 24 mmol/L (19-24); Oxygen Saturation ABG 92.5 % (90-95); PCO2 ABG 44 mmHg (35-46); PO2 ABG 68 mmHg (80-95); pH ABG 7.36 (7.35-7.45)
[2020-05-21 18:26] LABS: Allen Test Pos (Pos)
--- NOTE | 2020-05-21 18:41 | XRay Report ---
XR chest 1V portable CLINICAL HISTORY: SEPSIS COMPARISON STUDY: Chest CT May 21, 2020 at 5:36 PM. Chest radiograph performed earlier today. FINDINGS: Extensive bilateral airspace opacities have progressed since chest CT performed earlier tod ay. No pneumothorax or pleural effusion is noted. Cardiomegaly is unchanged. IMPRESSION: Progression of extensive bilateral airspace opacities. The findings favor an infectious process. Alveolar pulmonary edema could appear similar but is considered less likely. ACT 112: Negative or not required by law. Electronically signed by: Mateus Yeh M.D. 05/21/2020 6:39 PM
[2020-05-21] MEDS ORDERED: ONDANSETRON INJ 2 MG/ML 2 ML VIAL IV PRN (21:27)
[2020-05-21] MEDS ORDERED: FUROSEMIDE 40 MG/4 ML VIAL IV STA (21:27)
[2020-05-21] MEDS ORDERED: ACETAMINOPHEN 325 MG TAB PO PRN (21:27)
[2020-05-21] MEDS ORDERED: REMDESIVIR 200 mg: Day 1 IV ONE (21:30)
[2020-05-21] MEDS ORDERED: FUROSEMIDE 40 MG in SYRINGE 0 ML IV ONE (21:45)
[2020-05-21] MEDS: FAMOTIDINE 20 MG in SYRINGE 3 ML IV SCH (22:13)
[2020-05-21] MEDS: ENOXAPARIN INJ 40 MG/0.4 ML SYR SQ SCH (22:16)
[2020-05-21] MEDS: POTASSIUM CHLORIDE 10 MEQ TABCR PO SCH (22:22)
[2020-05-21] MEDS: ZINC SULFATE 220 MG CAPSULE PO SCH (22:22)
[2020-05-21 22:24] LABS: D Dimer 1380 ug/L FEU (0-500)
[2020-05-21 22:33] LABS: C Reactive Protein 13.3 mg/dl (0-0.29); Ferritin 1366.7 ng/ml (8-388)
--- NOTE | 2020-05-21 22:46 | History & Physical Report ---
Date of Service May 21, 2020 Assessment & Plan (1) Pneumonia due to 2019-nCoV: 69yo C male presenting with cough, SOB, hypoxic on arrival to 55% on room air. Patient is positive for Covid-[address] with bilateral airspace disease. Patient presently on High Flow NC at 90% FiO2, saturating 91%. He is not visibly dyspneic nor tachypneic at present. Risk factors for severe disease include male gender, obesity, HTN, HLP. Patient is uncertain of where he may have acquired the virus. His is ill too with similar symptoms as well as loss of taste and smell and most likely has Covid-19 also. Procalcitonin is negative. BNP within normal range at 391. Troponin 0.029 -Admit to medical with telemetry -Maintain precautions - Airborne and contact -Avoid aerosolizing procedures where possible -Remdesivir - discussed with Pulmonary as well as Pharmacy -Convalescent plasma - patient has been consented, will need Type and Screen -Decadron 6mg IV daily -Zinc 220mg po daily -Pepcid 20mg IV BID -Will administer Lasix 40mg IV x 1 dose in event of pulmonary edema contributing to patient's respiratory status -Pulmonary consultation appreciated Present on Admission?: Yes (2) HLD (hyperlipidemia): Chronic. Stable -Continue Simvastatin 80mg po daily Present on Admission?: Yes (3) BPH (benign prostatic hyperplasia): Chronic -Continue Flomax Present on Admission?: Yes (4) HTN (hypertension): Elevated blood pressure on arrival -Continue Lisinopril 20mg po daily - it is recommended that patient's on DAMIAN- inhibitors/ARBS be continued on these medications in setting of Covid-19 -Continue Lasix 40mg po daily -Continue Potassium 10mg po BID F/E/N - Lasix 40mg IV x 1, monitor electrolytes, hearth healthy diet as tolerated Ppx - Lovenox 40mg BID Code - Conditional Dispo - Admit to med/tele/isolation Present on Admission?: Yes Admission and Anticipated Discharge Date Admission Date: May 21, 2020 History of Present Illness Chief Complaint: SOB Primary Care Provider: Roge Arevalo MD Milton Martinez is a 69yo C male presenting with Covid-19 PNA. Patient developed cough with mild SOB, diarrhea over the last week. He has had progressive worsening of SOB and cough over the last 3 days with acute worsening over the last 24 hours which is why he came to the ER. He denies CP, loss of taste or smell or fever. His is ill as well. Patient was seen by his PCP earlier today and was diagnosed with bilateral PNA and was tested for Covid-19. On arrival to the ER patient afebrile, hypertensive at 175/112, HR=99, RR of 26 saturating 55% on room air. He was placed on High Flow nasal cannula with increase in FiO2 to 90%. He is presently saturating 92% with adequate wave form on HF 90% FiO2. ER Course: Dexamethasone 6mg, Albuterol 3mL neb x 2 Allergies Allergy/AdvReac Type Severity Reaction Status Date / Time No Known Allergies Allergy Unknown Verified 05/21/20 18:06 Home Medications Home Medications Medication Instructions Recorded Confirmed Type furosemide 40 mg PO DAILY 05/21/20 05/21/20 History lisinopril 20 mg PO DAILY 05/21/20 05/21/20 History omeprazole 20 mg PO DAILY 05/21/20 05/21/20 History potassium chloride 10 meq PO BID 05/21/20 05/21/20 History simvastatin 80 mg PO DAILY 05/21/20 05/21/20 History tamsulosin 0.4 mg PO DAILY 05/21/20 05/21/20 History Past Med/Surg History Medical History (Updated 05/21/20 @ 23:16 by Cami hCo DO) HLD (hyperlipidemia) HTN (hypertension) No pertinent family history Surgical History (Updated 05/21/20 @ 17:35 by Bill Mcqueen) No pertinent past surgical history Social History Smoking Status: Never smoker Hx Alcohol Use: No Hx Substance Use: No Preferred Language: Portuguese Communication Ability: Effective Clinical Trial Specialist Required: No Current Living Situation: Spouse Other Information That Helps Us Care for You: No Feels Safe at Home: Yes Safety Concerns: Feels Safe At This Time Assistive Devices: Glasses and Oxygen - Continuous Review of Systems Review of Systems: All systems reviewed & are unremarkable except as noted in HPI & below Physical Exam Physical Exam: General: obese male patient resting comfortably, NAD, non- toxic in appearance, AA&O x 4, HF NC in place Skin: warm, dry, intact, no rashes or lesions HEENT: NC/AT, PERRL, EOMI, anicteric sclera, conjunctiva without injection, external ear normal to inspection and nontender, nares patent, moist mucus membranes, dentition intact, no oropharyngeal lesions, neck supple, trachea midline, no LAD, no thyromegaly, no JVD Heart: +S1/S2, regular, no m/r/g Lungs: equal air entry bilaterally, diminished breath sounds with no rales/rhonchi/wheezes appreciated Abd: obese, +BS, soft, NT/ND, no masses/organomegaly/ascites Ext: warm, 2+ pulses in UE/LE bilaterally, no clubbing/cyanosis, trace pitting edema of bilateral LE Neuro: nonfocal, patient AA&O x 4, speech intact, no facial droop, moving all extremities on command with equal strength 5/5 Results & Data Results & Data ([facility]) Vital Signs (Past 12 Hours) Vital Signs Temp Pulse Pulse Pulse Resp BP BP 05/21/20 21:44 37.2 C 90 91 H 22 153/81 H 05/21/20 21:11 96 H 18 170/88 H 05/21/20 20:05 97 H 18 05/21/20 18:30 101 H 19 166/87 H 05/21/20 18:01 106 H 24 162/118 H 05/21/20 17:46 104 H 18 186/106 H 05/21/20 17:45 107 H 21 05/21/20 17:30 97 H 18 179/92 H 05/21/20 17:15 97 H 18 163/92 H 05/21/20 17:08 100 H 18 05/21/20 16:50 97 H 22 05/21/20 16:49 05/21/20 16:45 96 H 21 163/89 H 05/21/20 16:41 96 H 21 169/105 H 05/21/20 16:33 99 H 20 05/21/20 16:25 99 H 22 05/21/20 16:05 36.5 C 99 H 26 H 175/112 H Pulse Ox 05/21/20 21:44 92 05/21/20 21:11 99 05/21/20 20:05 91 05/21/20 18:30 91 05/21/20 18:01 91 05/21/20 17:46 95 05/21/20 17:45 91 05/21/20 17:30 95 05/21/20 17:15 93 05/21/20 17:08 05/21/20 16:50 93 05/21/20 16:49 93 05/21/20 16:45 92 05/21/20 16:41 93 05/21/20 16:33 90 05/21/20 16:25 90 05/21/20 16:05 55 L Laboratory Results Lab Results 05/21/20 05/21/20 05/21/20 Range/Units 16:23 16:23 16:23 WBC 9.44 (4.8-10.8) K/uL RBC 4.08 L (4.7-6.1) M/uL Hgb 12.4 L (14.0-18.0) g/dL POC Hgb (14.0-18.0) g/dl Hct 38.0 L (42-52) % POC Hct (42-52) % MCV 93.1 (80-100) fL MCH 30.4 (25-34) pg MCHC 32.6 (32-36) g/dL RDW Std Deviation 49.2 H (36.4-46.3) fL RDW Coeff of Keenan 14.5 (11.5-14.5) % Plt Count 204 (130-400) K/uL MPV 10.1 (7.4-10.4) fL Immature Gran % (Auto) 1.0 % Neut % (Auto) 84.4 % Lymph % (Auto) 11.1 % Austin % (Auto) 3.4 % Eos % (Auto) 0.0 % Baso % (Auto) 0.1 % Neut # (Auto) 7.97 H (1.4-6.5) K/uL Lymph # (Auto) 1.05 L (1.2-3.4) K/uL Austin # (Auto) 0.32 (0.11-0.59) K/uL Eos # (Auto) 0.00 (0-0.5) K/uL Baso # (Auto) 0.01 (0-0.2) K/uL Immature Gran # (Auto) 0.09 H (0.00-0.02) K/uL ESR (0-14) mm/hr PT 10.7 (9.0-12.0) Seconds INR 1.0 (0.9-1.1) APTT 29.8 (21.0-31.0) Seconds PTT Ratio 1.1 D-Dimer (0-500) ug/L FEU ABG pH (7.35-7.45) ABG pCO2 (35-46) mmHg ABG pO2 (80-95) mmHg ABG HCO3 (19-24) mmol/L ABG O2 Saturation (90-95) % ABG Base Excess (-9-1.8) mEq/L Jaden Test (Pos) Barometric Pressure mm/Hg Oxygen Given POC Sodium (135-144) mmol/L Sodium 137 (136-145) mmol/L POC Potassium (3.3-5.0) mmol/L Potassium 4.1 (3.5-5.1) mmol/L POC Chloride (101-112) mmol/L Chloride 104 (98-107) mmol/L Carbon Dioxide 27 (21-32) mmol/L POC Total CO2 (24-31) mmol/L Anion Gap 6.0 (3-11) POC Anion Gap (16-25) mmol/L POC BUN (7-18) mg/dl BUN 12 (7-18) mg/dl Creatinine 1.01 (0.6-1.4) mg/dl POC Creatinine (0.6-1.3) mg/dl Est Cr Clr Drug Dosing 89.2 ml/min Est GFR ( Amer) 88.8 Est GFR (Non-Af Amer) 76.6 BUN/Creatinine Ratio 11.8 (10-20) Glucose 130 H (70-99) mg/dl POC Glucose (other) (70-99) mg/dl Lactate (0.4-2.0) mmol/L Calcium 8.2 L (8.5-10.1) mg/dl POC Ioniz Calcium Ej (1.12-1.32) mmol/l Magnesium 1.7 L (1.8-2.4) mg/dl Ferritin (8-388) ng/ml Total Bilirubin 0.4 (0.2-1) mg/dl AST 79 H (15-37) U/L ALT 68 (12-78) U/L Alkaline Phosphatase 42 L (45-117) U/L Lactate Dehydrogenase (87-241) U/L Troponin I 0.029 (0-0.045) ng/ml C-Reactive Protein (0-0.29) mg/dl NT-Pro-B Natriuret Pep 391 (0-900) pg/ml Total Protein 7.2 (6.4-8.2) gm/dl Albumin 2.7 L (3.4-5.0) gm/dl Globulin 4.5 H (2.5-4.0) gm/dl Albumin/Globulin Ratio 0.6 L (0.9-2) Procalcitonin (0-0.5) ng/ml COVID-19 Eval Order COVID-19 PCR (Negative) 05/21/20 05/21/20 05/21/20 Range/Units 16:23 16:23 16:29 WBC (4.8-10.8) K/uL RBC (4.7-6.1) M/uL Hgb (14.0-18.0) g/dL POC Hgb (14.0-18.0) g/dl Hct (42-52) % POC Hct (42-52) % MCV (80-100) fL MCH (25-34) pg MCHC (32-36) g/dL RDW Std Deviation (36.4-46.3) fL RDW Coeff of Keenan (11.5-14.5) % Plt Count (130-400) K/uL MPV (7.4-10.4) fL Immature Gran % (Auto) % Neut % (Auto) % Lymph % (Auto) % Austin % (Auto) % Eos % (Auto) % Baso % (Auto) % Neut # (Auto) (1.4-6.5) K/uL Lymph # (Auto) (1.2-3.4) K/uL Austin # (Auto) (0.11-0.59) K/uL Eos # (Auto) (0-0.5) K/uL Baso # (Auto) (0-0.2) K/uL Immature Gran # (Auto) (0.00-0.02) K/uL ESR (0-14) mm/hr PT (9.0-12.0) Seconds INR (0.9-1.1) APTT (21.0-31.0) Seconds PTT Ratio D-Dimer (0-500) ug/L FEU ABG pH (7.35-7.45) ABG pCO2 (35-46) mmHg ABG pO2 (80-95) mmHg ABG HCO3 (19-24) mmol/L ABG O2 Saturation (90-95) % ABG Base Excess (-9-1.8) mEq/L Jaden Test (Pos) Barometric Pressure mm/Hg Oxygen Given POC Sodium (135-144) mmol/L Sodium (136-145) mmol/L POC Potassium (3.3-5.0) mmol/L Potassium (3.5-5.1) mmol/L POC Chloride (101-112) mmol/L Chloride (98-107) mmol/L Carbon Dioxide (21-32) mmol/L POC Total CO2 (24-31) mmol/L Anion Gap (3-11) POC Anion Gap (16-25) mmol/L POC BUN (7-18) mg/dl BUN (7-18) mg/dl Creatinine (0.6-1.4) mg/dl POC Creatinine (0.6-1.3) mg/dl Est Cr Clr Drug Dosing ml/min Est GFR ( Amer) Est GFR (Non-Af Amer) BUN/Creatinine Ratio (10-20) Glucose (70-99) mg/dl POC Glucose (other) (70-99) mg/dl Lactate 1.7 (0.4-2.0) mmol/L Calcium (8.5-10.1) mg/dl POC Ioniz Calcium Ej (1.12-1.32) mmol/l Magnesium (1.8-2.4) mg/dl Ferritin (8-388) ng/ml Total Bilirubin (0.2-1) mg/dl AST (15-37) U/L ALT (12-78) U/L Alkaline Phosphatase (45-117) U/L Lactate Dehydrogenase (87-241) U/L Troponin I (0-0.045) ng/ml C-Reactive Protein (0-0.29) mg/dl NT-Pro-B Natriuret Pep (0-900) pg/ml Total Protein (6.4-8.2) gm/dl Albumin (3.4-5.0) gm/dl Globulin (2.5-4.0) gm/dl Albumin/Globulin Ratio (0.9-2) Procalcitonin 0.07 (0-0.5) ng/ml COVID-19 Eval Order Covid19 Done at [facility] COVID-19 PCR (Negative) 05/21/20 05/21/20 05/21/20 Range/Units 16:29 16:37 16:40 WBC (4.8-10.8) K/uL RBC (4.7-6.1) M/uL Hgb (14.0-18.0) g/dL POC Hgb 14.3 (14.0-18.0) g/dl Hct (42-52) % POC Hct 42 (42-52) % MCV (80-100) fL MCH (25-34) pg MCHC (32-36) g/dL RDW Std Deviation (36.4-46.3) fL RDW Coeff of Keenan (11.5-14.5) % Plt Count (130-400) K/uL MPV (7.4-10.4) fL Immature Gran % (Auto) % Neut % (Auto) % Lymph % (Auto) % Austin % (Auto) % Eos % (Auto) % Baso % (Auto) % Neut # (Auto) (1.4-6.5) K/uL Lymph # (Auto) (1.2-3.4) K/uL Austin # (Auto) (0.11-0.59) K/uL Eos # (Auto) (0-0.5) K/uL Baso # (Auto) (0-0.2) K/uL Immature Gran # (Auto) (0.00-0.02) K/uL ESR (0-14) mm/hr PT (9.0-12.0) Seconds INR (0.9-1.1) APTT (21.0-31.0) Seconds PTT Ratio D-Dimer (0-500) ug/L FEU ABG pH 7.38 (7.35-7.45) ABG pCO2 44 (35-46) mmHg ABG pO2 64 L (80-95) mmHg ABG HCO3 25 H (19-24) mmol/L ABG O2 Saturation 90.9 (90-95) % ABG Base Excess 0.2 (-9-1.8) mEq/L Jaden Test Pos (Pos) Barometric Pressure 735.0 mm/Hg Oxygen Given 60% POC Sodium 138 (135-144) mmol/L Sodium (136-145) mmol/L POC Potassium 4.0 (3.3-5.0) mmol/L Potassium (3.5-5.1) mmol/L POC Chloride 100 L (101-112) mmol/L Chloride (98-107) mmol/L Carbon Dioxide (21-32) mmol/L POC Total CO2 26 (24-31) mmol/L Anion Gap (3-11) POC Anion Gap 17.0 (16-25) mmol/L POC BUN 12 (7-18) mg/dl BUN (7-18) mg/dl Creatinine (0.6-1.4) mg/dl POC Creatinine 0.9 (0.6-1.3) mg/dl Est Cr Clr Drug Dosing ml/min Est GFR ( Amer) Est GFR (Non-Af Amer) BUN/Creatinine Ratio (10-20) Glucose (70-99) mg/dl POC Glucose (other) 135 H (70-99) mg/dl Lactate (0.4-2.0) mmol/L Calcium (8.5-10.1) mg/dl POC Ioniz Calcium Ej 1.06 L (1.12-1.32) mmol/l Magnesium (1.8-2.4) mg/dl Ferritin (8-388) ng/ml Total Bilirubin (0.2-1) mg/dl AST (15-37) U/L ALT (12-78) U/L Alkaline Phosphatase (45-117) U/L Lactate Dehydrogenase (87-241) U/L Troponin I (0-0.045) ng/ml C-Reactive Protein (0-0.29) mg/dl NT-Pro-B Natriuret Pep (0-900) pg/ml Total Protein (6.4-8.2) gm/dl Albumin (3.4-5.0) gm/dl Globulin (2.5-4.0) gm/dl Albumin/Globulin Ratio (0.9-2) Procalcitonin (0-0.5) ng/ml COVID-19 Eval Order COVID-19 PCR POSITIVE A* (Negative) 05/21/20 05/21/20 05/21/20 Range/Units 18:07 21:51 21:51 WBC (4.8-10.8) K/uL RBC (4.7-6.1) M/uL Hgb (14.0-18.0) g/dL POC Hgb (14.0-18.0) g/dl Hct (42-52) % POC Hct (42-52) % MCV (80-100) fL MCH (25-34) pg MCHC (32-36) g/dL RDW Std Deviation (36.4-46.3) fL RDW Coeff of Keenan (11.5-14.5) % Plt Count (130-400) K/uL MPV (7.4-10.4) fL Immature Gran % (Auto) % Neut % (Auto) % Lymph % (Auto) % Austin % (Auto) % Eos % (Auto) % Baso % (Auto) % Neut # (Auto) (1.4-6.5) K/uL Lymph # (Auto) (1.2-3.4) K/uL Austin # (Auto) (0.11-0.59) K/uL Eos # (Auto) (0-0.5) K/uL Baso # (Auto) (0-0.2) K/uL Immature Gran # (Auto) (0.00-0.02) K/uL ESR 83 H (0-14) mm/hr PT (9.0-12.0) Seconds INR (0.9-1.1) APTT (21.0-31.0) Seconds PTT Ratio D-Dimer 1380 H* (0-500) ug/L FEU ABG pH 7.36 (7.35-7.45) ABG pCO2 44 (35-46) mmHg ABG pO2 68 L (80-95) mmHg ABG HCO3 24 (19-24) mmol/L ABG O2 Saturation 92.5 (90-95) % ABG Base Excess -1.7 (-9-1.8) mEq/L Jaden Test Pos (Pos) Barometric Pressure 734.9 mm/Hg Oxygen Given 90% POC Sodium (135-144) mmol/L Sodium (136-145) mmol/L POC Potassium (3.3-5.0) mmol/L Potassium (3.5-5.1) mmol/L POC Chloride (101-112) mmol/L Chloride (98-107) mmol/L Carbon Dioxide (21-32) mmol/L POC Total CO2 (24-31) mmol/L Anion Gap (3-11) POC Anion Gap (16-25) mmol/L POC BUN (7-18) mg/dl BUN (7-18) mg/dl Creatinine (0.6-1.4) mg/dl POC Creatinine (0.6-1.3) mg/dl Est Cr Clr Drug Dosing ml/min Est GFR ( Amer) Est GFR (Non-Af Amer) BUN/Creatinine Ratio (10-20) Glucose (70-99) mg/dl POC Glucose (other) (70-99) mg/dl Lactate (0.4-2.0) mmol/L Calcium (8.5-10.1) mg/dl POC Ioniz Calcium Ej (1.12-1.32) mmol/l Magnesium (1.8-2.4) mg/dl Ferritin (8-388) ng/ml Total Bilirubin (0.2-1) mg/dl AST (15-37) U/L ALT (12-78) U/L Alkaline Phosphatase (45-117) U/L Lactate Dehydrogenase (87-241) U/L Troponin I (0-0.045) ng/ml C-Reactive Protein (0-0.29) mg/dl NT-Pro-B Natriuret Pep (0-900) pg/ml Total Protein (6.4-8.2) gm/dl Albumin (3.4-5.0) gm/dl Globulin (2.5-4.0) gm/dl Albumin/Globulin Ratio (0.9-2) Procalcitonin (0-0.5) ng/ml COVID-19 Eval Order COVID-19 PCR (Negative) 05/21/20 05/21/20 Range/Units 21:51 21:51 WBC (4.8-10.8) K/uL RBC (4.7-6.1) M/uL Hgb (14.0-18.0) g/dL POC Hgb (14.0-18.0) g/dl Hct (42-52) % POC Hct (42-52) % MCV (80-100) fL MCH (25-34) pg MCHC (32-36) g/dL RDW Std Deviation (36.4-46.3) fL RDW Coeff of Keenan (11.5-14.5) % Plt Count (130-400) K/uL MPV (7.4-10.4) fL Immature Gran % (Auto) % Neut % (Auto) % Lymph % (Auto) % Austin % (Auto) % Eos % (Auto) % Baso % (Auto) % Neut # (Auto) (1.4-6.5) K/uL Lymph # (Auto) (1.2-3.4) K/uL Austin # (Auto) (0.11-0.59) K/uL Eos # (Auto) (0-0.5) K/uL Baso # (Auto) (0-0.2) K/uL Immature Gran # (Auto) (0.00-0.02) K/uL ESR (0-14) mm/hr PT (9.0-12.0) Seconds INR (0.9-1.1) APTT (21.0-31.0) Seconds PTT Ratio D-Dimer (0-500) ug/L FEU ABG pH (7.35-7.45) ABG pCO2 (35-46) mmHg ABG pO2 (80-95) mmHg ABG HCO3 (19-24) mmol/L ABG O2 Saturation (90-95) % ABG Base Excess (-9-1.8) mEq/L Jaden Test (Pos) Barometric Pressure mm/Hg Oxygen Given POC Sodium (135-144) mmol/L Sodium (136-145) mmol/L POC Potassium (3.3-5.0) mmol/L Potassium (3.5-5.1) mmol/L POC Chloride (101-112) mmol/L Chloride (98-107) mmol/L Carbon Dioxide (21-32) mmol/L POC Total CO2 (24-31) mmol/L Anion Gap (3-11) POC Anion Gap (16-25) mmol/L POC BUN (7-18) mg/dl BUN (7-18) mg/dl Creatinine (0.6-1.4) mg/dl POC Creatinine (0.6-1.3) mg/dl Est Cr Clr Drug Dosing ml/min Est GFR ( Amer) Est GFR (Non-Af Amer) BUN/Creatinine Ratio (10-20) Glucose (70-99) mg/dl POC Glucose (other) (70-99) mg/dl Lactate (0.4-2.0) mmol/L Calcium (8.5-10.1) mg/dl POC Ioniz Calcium Ej (1.12-1.32) mmol/l Magnesium (1.8-2.4) mg/dl Ferritin 1366.7 H (8-388) ng/ml Total Bilirubin (0.2-1) mg/dl AST (15-37) U/L ALT (12-78) U/L Alkaline Phosphatase (45-117) U/L Lactate Dehydrogenase 555 H (87-241) U/L Troponin I (0-0.045) ng/ml C-Reactive Protein 13.30 H (0-0.29) mg/dl NT-Pro-B Natriuret Pep (0-900) pg/ml Total Protein (6.4-8.2) gm/dl Albumin (3.4-5.0) gm/dl Globulin (2.5-4.0) gm/dl Albumin/Globulin Ratio (0.9-2) Procalcitonin (0-0.5) ng/ml COVID-19 Eval Order COVID-19 PCR (Negative) Diagnostic Findings CT ANGIOGRAPHY OF THE CHEST, PULMONARY EMBOLUS PROTOCOL CLINICAL HISTORY: Shortness of breath. Evaluate for pulmonary embolus. COMPARISON STUDY: Chest radiograph performed earlier today TECHNIQUE: Following IV administration of 118 mL of Optiray-320, helical axial images of the chest were obtained utilizing the pulmonary embolus protocol. Maximal intensity projections and sagittal and coronal reformats were viewed on an independent 3D workstation. IV contrast was administered without complication. Automated exposure control was utilized for the study. A dose lowering technique was utilized adhering to the principles of ALARA. CT DOSE: 667.00 mGycm FINDINGS: No pulmonary embolus is identified although the segmental and subsegmental pulmonary arteries are suboptimally assessed due to respiratory motion and suboptimal opacification. There is no thoracic aortic dissection. Heart is moderately enlarged. There's no pericardial effusion. Several mildly enlarged mediastinal and bilateral hilar lymph nodes are noted. Index subcarinal lymph node measures 1.2 cm in short extremity. There is no pneumothorax. There are trace bilateral pleural effusions. There are extensive multifocal bilateral airspace opacities throughout the lungs. No cavitation is present. Central airways are patent. Several calcified thoracic lymph nodes are noted. No suspicious lesion within the bony thorax is noted. Water attenuation lesion within the upper pole of the left kidney is partially imaged. This measures at least 3.6 cm. This is incompletely imaged on this exam but favors a cyst. IMPRESSION: 1. No pulmonary embolus identified although segmental and subsegmental pulmonary arteries suboptimally assessed due to respiratory motion. 2. Extensive multifocal airspace opacities throughout both lungs. Findings represent an infectious process could this may reflect a viral or bacterial pneumonia. Follow-up chest CT in 2 months to ensure resolution is recommended. Trace bilateral pleural effusions. 3. Moderate cardiomegaly. 4. Mildly enlarged mediastinal and bilateral hilar lymph nodes. These are likely reactive and can be assessed on follow-up CT. ACT 112: Negative or not required by law. XR chest 1V portable CLINICAL HISTORY: SEPSIS COMPARISON STUDY: Chest CT May 21, 2020 at 5:36 PM. Chest radiograph performed earlier today. FINDINGS: Extensive bilateral airspace opacities have progressed since chest CT performed earlier today. No pneumothorax or pleural effusion is noted. Cardiomegaly is unchanged. IMPRESSION: Progression of extensive bilateral airspace opacities. The findings favor an infectious process. Alveolar pulmonary edema could appear similar but is considered less likely. ACT 112: Negative or not required by law. Electronically signed by: Mateus Yeh M.D. 05/21/2020 6:39 PM Dictated: 05/21/201837 Transcribed: 05/21/201837 Code Status & VTE Plan Code Status Conditional - patient would not like intubation or mechanical ventilation VTE Prophylaxis Plan VTE Prophylaxis will be ordered: Yes PG Care Time/CCT Total # of Minutes Spent Total Time Spent with Patient: Total time spent is greater than 50% in coordination of care (as documented) at patient's floor/unit and/or counseling patient: Coding Level of Care Code 72026 Initial Inpt Care Lvl 3 Diagnoses Pneumonia due to 2019-nCoV U07.1; J12.89 HLD (hyperlipidemia) E78.5 Hyperlipidemia type: unspecified BPH (benign prostatic hyperplasia) N40.0 Lower urinary tract symptom presence: symptoms absent HTN (hypertension) I10 Hypertension type: essential hypertension (1) HLD (hyperlipidemia) Hyperlipidemia type: unspecified Qualified Code(s): E78.5 - Hyperlipidemia, unspecified (2) HTN (hypertension) Hypertension type: essential hypertension Qualified Code(s): I10 - Essential (primary) hypertension (3) BPH (benign prostatic hyperplasia) Lower urinary tract symptom presence: symptoms absent Qualified Code(s): N40.0 - Benign prostatic hyperplasia without lower urinary tract symptoms
[2020-05-21] MEDS: ALBUTEROL HFA 8 GM INHALER INH SCH (23:28)
[2020-05-22] MEDS: NSS 30mL Flush, Days 1-5 IV SCH ×2 (00:42→23:16)
[2020-05-22] MEDS: ALBUTEROL HFA 8 GM INHALER INH SCH ×6 (02:11→23:59)
[2020-05-22 04:43] LABS: Appearance Urine Clear (Clear); Bacteria Urine Automated Negative (Negative); Bilirubin Urine Negative (Negative); Blood Urine 1+ (Negative); Cast Urine Automated 0 /lpf (0-5); Color Urine Yellow; Epithelial Cell Urine Auto 0-5 /lpf (0-5); Glucose Urine UA Negative (Negative); Ketones Urine Negative (Negative); Leukocyte Esterase Urine Negative (Negative); Nitrite Urine Negative (Negative); Protein Urine 1+ (Negative); RBC Urine Automated 0-4 /hpf (0-4); Specific Gravity Urine 1.016 (1.000-1.030); Urobilinogen Urine Negative (Negative); pH Urine 5.5 (4.5-7.5)
[2020-05-22 05:34] LABS: Basophils # (auto) 0.01 K/uL (0-0.2); Basophils % (auto) 0.1 %; Hemoglobin 12.7 g/dL (14.0-18.0); Immature Granulocytes # (auto) 0.11 K/uL (0.00-0.02); Immature Granulocytes % (auto) 1.1 %; Lymphocytes # (auto) 1.06 K/uL (1.2-3.4); Lymphocytes % (auto) 10.6 %; Mean Corpuscular Hgb Conc 33.4 g/dL (32-36); Mean Corpuscular Volume 92.7 fL (80-100); Mean Platelet Volume 9.8 fL (7.4-10.4); Neutrophils # (auto) 8.29 K/uL (1.4-6.5); Neutrophils % (auto) 83.2 %; Platelet Count 215 K/uL (130-400); RDW Coefficient of Variation 14.3 % (11.5-14.5); RDW Standard Deviation 48.1 fL (36.4-46.3); White Blood Count 9.97 K/uL (4.8-10.8)
[2020-05-22 06:10] LABS: Albumin Level 2.7 gm/dl (3.4-5.0); BUN Creatinine Ratio 12.7 (10-20); Bilirubin Direct 0.1 mg/dl (0-0.2); Calcium 8.6 mg/dl (8.5-10.1); Creatinine Clr Calc Pharmacy 96.9 ml/min; Est GFR (African American) 98.1; Est GFR (Non-African American) 84.6; Potassium 4.2 mmol/L (3.5-5.1)
[2020-05-22 06:13] LABS: Bilirubin,Total 0.3 mg/dl (0.2-1); Total Protein 7.6 gm/dl (6.4-8.2)
--- NOTE | 2020-05-22 07:22 | Pulmonary Consultation ---
Date of Consultation May 22, 2020 Assessment & Plan (1) Acute respiratory failure with hypoxia: CT chest 05/21/2020 personally reviewed:Diffuse patchy groundglass opacities kathrine reciated bilaterally affecting upper and lower lobes. No mediastinal lymphadenopathy. Covid RADS 5 -- Acute Hypoxic respiratory failure Secondary to multilobar pneumonia, COVID-19 positive Lymph, ferritin 1366, LDH 555, CRP 13.3, procalcitonin 0.07, AST 79 Continue with dexamethasone 6 mg daily for total of 10 days Continue with remdesivir 200 mg on day 1 followed by 100 mg for 4 days. Monitor LFTs. Patient AST was mildly elevated we will keep a close eye on it. O2 supplementation to keep O2 saturation between 88-92 High flow and if there is still respiratory distress would try BiPAP 06/24 80% --Morbid obesity --Probable JACINDA Plan: Recommend awake proning. Recommend Lovenox 40 mg twice daily Incentive spirometry, Mucinex. Doxycycline 100 mg twice daily for 5 days. Repeat CRP, ferritin, D-dimer every 48 hours. Monitor LFTs Case was discussed with KRISTY Obrien Pulmonary will follow peripherally. Please call for any questions. Please note the above document was generated using voice recognition software. It may contain grammatical, syntax or spelling errors.Any formal questions or concerns about the content, text or information contained within the body of t his dictation should be directly addressed to the provider for clarification. (2) Pneumonia due to 2019-nCoV: (3) Morbid obesity: History of Present Illness Attending Physician: Derek Clark MD History of Present Illness 69-year-old male admitted to the hospital because of worsening shortness of breath, diarrhea going on over a week. He was found to be COVID-19 positive in the ED. In the ED patient needed FiO2 of 90% on high flow to keep the saturation around 90%. I was called by Dr. Cho regarding the clinical condition of the patient when he came to the ED. He was not in any acute distress. Positive subjective fever and chills. Case was discussed with nurse taking care of the patient today. Patient is in no acute distress breathing high teens to low 20s. Saturating 91% on high flow. Afebrile in the hospital. History obtained from previous chart and ED note. Allergies Allergy/AdvReac Type Severity Reaction Status Date / Time No Known Allergies Allergy Unknown Verified 05/21/20 18:06 Home Medications Home Medications Medication Instructions Recorded Confirmed Type furosemide 40 mg PO DAILY 05/21/20 05/21/20 History lisinopril 20 mg PO DAILY 05/21/20 05/21/20 History omeprazole 20 mg PO DAILY 05/21/20 05/21/20 History potassium chloride 10 meq PO BID 05/21/20 05/21/20 History simvastatin 80 mg PO DAILY 05/21/20 05/21/20 History tamsulosin 0.4 mg PO DAILY 05/21/20 05/21/20 History Patient History Medical History (Updated 05/22/20 @ 07:22 by Francisca Ko MD) HLD (hyperlipidemia) HTN (hypertension) No pertinent family history Surgical History (Updated 05/21/20 @ 17:35 by Bill Mcqueen) No pertinent past surgical history Social History Smoking Status: Never smoker Hx Alcohol Use: No Hx Substance Use: No Preferred Language: Finnish Communication Ability: Effective Hospitality Host Required: No Current Living Situation: Spouse Other Information That Helps Us Care for You: No Feels Safe at Home: Yes Safety Concerns: Feels Safe At This Time Assistive Devices: None Review of Systems Review of Systems: Other Physical Exam Physical Exam: Patient not examined due to coronavirus restrictions and attemp ts to minimize exposure to staff and consider PPE. Please refer to the hospitalist exam for complete details. Results & Data Results & Data ([facility]) Vital Signs (Past 12 Hours) Vital Signs Temp Pulse Pulse Pulse Pulse Resp BP 05/22/20 02:15 91 H 22 05/22/20 02:13 91 H 22 05/22/20 01:19 05/22/20 00:40 36.9 C 92 H 24 05/21/20 23:29 85 22 05/21/20 23:28 85 22 05/21/20 21:44 37.2 C 90 91 H 22 05/21/20 21:11 96 H 18 170/88 H 05/21/20 20:05 97 H 18 BP Pulse Ox 05/22/20 02:15 90 05/22/20 02:13 90 05/22/20 01:19 90 05/22/20 00:40 127/82 88 L 05/21/20 23:29 92 05/21/20 23:28 92 05/21/20 21:44 153/81 H 92 05/21/20 21:11 99 05/21/20 20:05 91 05/22/20 05:20 05/22/20 05:20 PG Care Time/CCT Total # of Minutes Spent Total Time Spent with Patient: Total time spent is greater than 50% in coordination of care (as documented) at patient's floor/unit and/or counseling patient: Coding Level of Care Code 89775 Initial Inpt Care Lvl 2 Diagnoses Acute respiratory failure with hypoxia J96.01 Pneumonia due to 2019-nCoV U07.1; J12.89 Morbid obesity E66.01
--- NOTE | 2020-05-22 07:44 | Hospitalist Progress Note ---
Date of Service May 22, 2020 Assessment & Plan (1) Pneumonia due to 2019-nCoV: 69yo C male presenting with cough, SOB, hypoxic on arrival to 55% on room air. Patient is positive for Covid-[address] with bilateral airspace disease. Patient presently on High Flow NC at 80% FiO2, saturating low 90%'s. d dimer 1380 secondary to inflamatory response, its risk or fall has beed associated with mortality prediction His is ill too with similar symptoms as well as loss of taste and smell and has a pending Covid-19. Procalcitonin is negative. BNP within normal range at 391. Troponin 0.029 Airborne and contact precautions -Remdesivir - discussed with Pulmonary as well as Pharmacy will complete course -Convalescent plasma - patient has been consented, -Decadron 6mg x 10 days -Zinc 220mg po daily -Pepcid 20mg IV BID -administered Lasix 40mg IV x 1 dose in event of pulmonary edema contributing to patient's respiratory status -Pulmonary consultation appreciated (2) HLD (hyperlipidemia): Chronic. Stable -Continue Simvastatin 80mg po daily (3) BPH (benign prostatic hyperplasia): Chronic -Continue Flomax (4) HTN (hypertension): Elevated blood pressure on arrival -Continue Lisinopril 20mg po daily - it is recommended that patient's on DAMIAN- inhibitors/ARBS be continued on these medications in setting of Covid-19 -Continue Lasix 40mg po daily -Continue Potassium 10mg po BID F/E/N - Lasix 40mg IV x 1, monitor electrolytes, hearth healthy diet as tolerated Ppx - Lovenox 40mg BID Code - Conditional Dispo - Admit to med/tele/isolation Admission and Anticipated Discharge Date Admission Date: May 21, 2020 Subjective pt states he feels improved, he maybe having some affect from the steroids, did have modest decrease in his oxygen need to 80% of 40 L hi flow never lost smell or taste, no diarrhea Review of Systems Review of Systems: Moderate distress and fatigue no headache, blurry or double vision no speech or swallowing issues no chest pain, pressure or palpitations Significant shortness of breath, nonproductive cough but no wheezes no abdominal pain, nausea or vomiting, diarrhea or constipation no dysuria, hematuria or frequency no focal joint pain or swelling no back pain, CVA tenderness or radicular pain no bruising, bleeding or rashes no focal signs of weakness or numbness or altered sensation globally feels weak no complaints of anxiety or depression. Physical Exam Physical Exam: The patient appeared well nourished and normally developed. Respiratory distress Vital signs as documented. Head exam is normocephalic atraumatic no scleral icterus Neck is without JVD, thyromegaly, or carotid bruits. Lungs are coarse rhonchi bilaterally, no focal loss of breath sounds Cardiac exam, Rhythm is regular.. No murmurs, rubs or gallops. Abdominal exam reveals normal bowel sounds, soft non tender, no masses Extremities are nonedematous and both pedal pulses are present Neurologic exam is alert and oriented, no focal loss of strength or sensation Skin is without bruises or rashes Psychologically is without concerns for anxiety or depression. Results & Data Results & Data ([facility]) Vital Signs (Past 12 Hours) Vital Signs Temp Pulse Pulse Pulse Pulse Resp BP 05/22/20 02:15 91 H 22 05/22/20 02:13 91 H 22 05/22/20 01:19 05/22/20 00:40 98.4 F 92 H 24 05/21/20 23:29 85 22 05/21/20 23:28 85 22 05/21/20 21:44 99.0 F 90 91 H 22 05/21/20 21:11 96 H 18 170/88 H 05/21/20 20:05 97 H 18 BP Pulse Ox 05/22/20 02:15 90 05/22/20 02:13 90 05/22/20 01:19 90 05/22/20 00:40 127/82 88 L 05/21/20 23:29 92 05/21/20 23:28 92 05/21/20 21:44 153/81 H 92 05/21/20 21:11 99 05/21/20 20:05 91 PG Care Time/CCT Total # of Minutes Spent Total Time Spent with Patient: Total time spent is greater than 50% in coordination of care (as documented) at patient's floor/unit and/or counseling patient: Coding Level of Care Code 13259 Subseq Hosp Care Lvl 3 Diagnoses Pneumonia due to 2019-nCoV U07.1; J12.89 HLD (hyperlipidemia) E78.5 Hyperlipidemia type: unspecified BPH (benign prostatic hyperplasia) N40.0 Lower urinary tract symptom presence: symptoms absent HTN (hypertension) I10 Hypertension type: essential hypertension (1) BPH (benign prostatic hyperplasia) Lower urinary tract symptom presence: symptoms absent Qualified Code(s): N40.0 - Benign prostatic hyperplasia without lower urinary tract symptoms (2) HLD (hyperlipidemia) Hyperlipidemia type: unspecified Qualified Code(s): E78.5 - Hyperlipidemia, unspecified (3) HTN (hypertension) Hypertension type: essential hypertension Qualified Code(s): I10 - Essential (primary) hypertension
[2020-05-22] MEDS: lisinopril 20 MG TAB PO SCH (08:45)
[2020-05-22] MEDS: POTASSIUM CHLORIDE 10 MEQ TABCR PO SCH ×2 (08:45→20:19)
[2020-05-22] MEDS: dexAMETHasone 6 MG in SYRINGE 0 ML IV SCH (08:45)
[2020-05-22] MEDS: FUROSEMIDE 40 MG TAB PO SCH (08:46)
[2020-05-22] MEDS: ZINC SULFATE 220 MG CAPSULE PO SCH (08:46)
[2020-05-22] MEDS: TAMSULOSIN HCL 0.4 MG CAP PO SCH (08:46)
[2020-05-22] MEDS: SIMVASTATIN 80 MG TAB PO SCH (08:46)
[2020-05-22] MEDS: ENOXAPARIN INJ 40 MG/0.4 ML SYR SQ SCH ×2 (08:47→20:19)
[2020-05-22] MEDS: FAMOTIDINE 20 MG in SYRINGE 3 ML IV SCH ×2 (08:56→20:18)
[2020-05-22] MEDS: DOXYCYCLINE HYCLATE 100 MG CAP PO SCH ×2 (16:06→20:20)
[2020-05-22] MEDS: guaiFENesin 600 MG TABCR PO SCH (20:20)
[2020-05-22] MEDS: REMDESIVIR 100mg: Days 2-5 IV SCH (20:56)
[2020-05-22] MEDS ORDERED: ALBUTEROL HFA 8 GM INHALER INH PRN (23:51)
[2020-05-23 06:09] LABS: D Dimer 860 ug/L FEU (0-500)
[2020-05-23] MEDS: TAMSULOSIN HCL 0.4 MG CAP PO SCH (08:58)
[2020-05-23] MEDS: SIMVASTATIN 80 MG TAB PO SCH (08:58)
[2020-05-23] MEDS: guaiFENesin 600 MG TABCR PO SCH ×2 (08:59→21:36)
[2020-05-23] MEDS: FUROSEMIDE 40 MG TAB PO SCH (08:59)
[2020-05-23] MEDS: POTASSIUM CHLORIDE 10 MEQ TABCR PO SCH ×2 (08:59→21:36)
[2020-05-23] MEDS: dexAMETHasone 6 MG in SYRINGE 0 ML IV SCH (08:59)
[2020-05-23] MEDS: FAMOTIDINE 20 MG in SYRINGE 3 ML IV SCH ×2 (08:59→21:38)
[2020-05-23] MEDS: DOXYCYCLINE HYCLATE 100 MG CAP PO SCH ×2 (08:59→21:36)
[2020-05-23] MEDS: ZINC SULFATE 220 MG CAPSULE PO SCH (09:00)
[2020-05-23] MEDS: lisinopril 20 MG TAB PO SCH (09:00)
[2020-05-23] MEDS: ENOXAPARIN INJ 40 MG/0.4 ML SYR SQ SCH ×2 (09:00→21:36)
--- NOTE | 2020-05-23 17:14 | Hospitalist Progress Note ---
Date of Service May 23, 2020 Assessment & Plan (1) Pneumonia due to 2019-nCoV: 69yo C male presenting with cough, SOB, hypoxic on arrival to 55% on room air. Patient is positive for Covid-[address] with bilateral airspace disease. Patient presently on High Flow NC at 80% FiO2, saturating low 90%'s. d dimer 1380 secondary to inflamatory response, its risk or fall has beed associated with mortality prediction His is ill too with similar symptoms as well as loss of taste and smell and has a pending Covid-19. Procalcitonin is negative. BNP within normal range at 391. Troponin 0.029 Airborne and contact precautions -Remdesivir - discussed with Pulmonary as well as Pharmacy will complete course -Convalescent plasma - consented, admniistered -Decadron 6mg x 10 days -Zinc 220mg po daily -Pepcid 20mg IV BID -administered Lasix 40mg IV x 1 dose in event of pulmonary edema contributing to patient's respiratory status -Pulmonary consultation appreciated (2) HLD (hyperlipidemia): Chronic. Stable -Continue Simvastatin 80mg po daily (3) BPH (benign prostatic hyperplasia): Chronic -Continue Flomax (4) HTN (hypertension): Elevated blood pressure on arrival -Continue Lisinopril 20mg po daily - it is recommended that patient's on DAMIAN- inhibitors/ARBS be continued on these medications in setting of Covid-19 -Continue Lasix 40mg po daily -Continue Potassium 10mg po BID F/E/N - Lasix 40mg IV x 1, monitor electrolytes, hearth healthy diet as tolerated Ppx - Lovenox 40mg BID Code - Conditional slow but steady improvement Admission and Anticipated Discharge Date Admission Date: May 21, 2020 Subjective This pt continues to say he feels great, he is short of breath but has had continued reduction in high flow oxygen support, now at 30L 60%. non productive cough Review of Systems Review of Systems: Moderate distress and fatigue no headache, blurry or double vision no speech or swallowing issues no chest pain, pressure or palpitations Significant shortness of breath, nonproductive cough but no wheezes no abdominal pain, nausea or vomiting, diarrhea or constipation no dysuria, hematuria or frequency no focal joint pain or swelling no back pain, CVA tenderness or radicular pain no bruising, bleeding or rashes no focal signs of weakness or numbness or altered sensation globally feels weak no complaints of anxiety or depression. Physical Exam Physical Exam: The patient appeared well nourished and normally developed. Respiratory distress Vital signs as documented. Head exam is normocephalic atraumatic no scleral icterus Neck is without JVD, thyromegaly, or carotid bruits. Lungs are coarse rhonchi bilaterally, no focal loss of breath sounds Cardiac exam, Rhythm is regular.. No murmurs, rubs or gallops. Abdominal exam reveals normal bowel sounds, soft non tender, no masses Extremities are nonedematous and both pedal pulses are present Neurologic exam is alert and oriented, no focal loss of strength or sensation Skin is without bruises or rashes Psychologically is without concerns for anxiety or depression. Results & Data Results & Data ([facility]) Vital Signs (Past 12 Hours) Vital Signs Pulse Pulse Resp BP Pulse Ox 05/23/20 15:14 78 18 95 05/23/20 10:54 65 18 97 05/23/20 07:52 73 20 167/83 H 96 05/23/20 07:17 72 20 94 PG Care Time/CCT Total # of Minutes Spent Total Time Spent with Patient: Total time spent is greater than 50% in coordination of care (as documented) at patient's floor/unit and/or counseling patient: Coding Level of Care Code 51032 Subseq Hosp Care Lvl 2 Diagnoses Pneumonia due to 2019-nCoV U07.1; J12.89 HLD (hyperlipidemia) E78.5 Hyperlipidemia type: unspecified BPH (benign prostatic hyperplasia) N40.0 Lower urinary tract symptom presence: symptoms absent HTN (hypertension) I10 Hypertension type: essential hypertension (1) HLD (hyperlipidemia) Hyperlipidemia type: unspecified Qualified Code(s): E78.5 - Hyperlipidemia, unspecified (2) BPH (benign prostatic hyperplasia) Lower urinary tract symptom presence: symptoms absent Qualified Code(s): N40.0 - Benign prostatic hyperplasia without lower urinary tract symptoms (3) HTN (hypertension) Hypertension type: essential hypertension Qualified Code(s): I10 - Essential (primary) hypertension
[2020-05-23] MEDS: REMDESIVIR 100mg: Days 2-5 IV SCH (21:38)
[2020-05-23] MEDS: NSS 30mL Flush, Days 1-5 IV SCH (23:11)
[2020-05-24 06:17] LABS: BUN Creatinine Ratio 31.1 (10-20); Calcium 8.7 mg/dl (8.5-10.1); Est GFR (African American) 106.1; Est GFR (Non-African American) 91.5; Potassium 4.2 mmol/L (3.5-5.1)
[2020-05-24] MEDS: SIMVASTATIN 80 MG TAB PO SCH (09:02)
[2020-05-24] MEDS: ZINC SULFATE 220 MG CAPSULE PO SCH (09:02)
[2020-05-24] MEDS: dexAMETHasone 6 MG in SYRINGE 0 ML IV SCH (09:02)
[2020-05-24] MEDS: guaiFENesin 600 MG TABCR PO SCH ×2 (09:02→21:21)
[2020-05-24] MEDS: lisinopril 20 MG TAB PO SCH (09:03)
[2020-05-24] MEDS: POTASSIUM CHLORIDE 10 MEQ TABCR PO SCH ×2 (09:03→21:21)
[2020-05-24] MEDS: FUROSEMIDE 40 MG TAB PO SCH (09:03)
[2020-05-24] MEDS: DOXYCYCLINE HYCLATE 100 MG CAP PO SCH ×2 (09:03→21:21)
[2020-05-24] MEDS: TAMSULOSIN HCL 0.4 MG CAP PO SCH (09:03)
[2020-05-24] MEDS: ENOXAPARIN INJ 40 MG/0.4 ML SYR SQ SCH ×2 (09:04→21:21)
[2020-05-24] MEDS: FAMOTIDINE 20 MG in SYRINGE 3 ML IV SCH ×2 (10:14→21:22)
--- NOTE | 2020-05-24 17:00 | Hospitalist Progress Note ---
Date of Service May 24, 2020 Assessment & Plan (1) Pneumonia due to 2019-nCoV: 69yo C male presenting with cough, SOB, hypoxic on arrival to 55% on room air. Patient is positive for Covid-[address] with bilateral airspace disease. Patient presently on High Flow NC at 80% FiO2, saturating low 90%'s. d dimer 1380 secondary to inflammatory response, its risk or fall has been associated with mortality prediction the pt is with improving oxygenation, hope to transtion to NC or Oxymask shortly His is ill too with similar symptoms as well as loss of taste and smell and has a pending Covid-19. Procalcitonin is negative. BNP within normal range at 391. Troponin 0.029 Airborne and contact precautions -Remdesivir - discussed with Pulmonary as well as Pharmacy will complete course -Convalescent plasma - consented, administered -Decadron 6mg x 10 days -Zinc 220mg po daily -Pepcid 20mg IV BID -administered Lasix 40mg IV x 1 dose in event of pulmonary edema contributing to patient's respiratory status -Pulmonary consultation appreciated (2) HLD (hyperlipidemia): Chronic. Stable -Continue Simvastatin 80mg po daily (3) BPH (benign prostatic hyperplasia): Chronic -Continue Flomax (4) HTN (hypertension): Elevated blood pressure on arrival -Continue Lisinopril 20mg po daily - it is recommended that patient's on DAMIAN-inhibitors/ARBS be continued on these medications in setting of Covid-19 -Continue Lasix 40mg po daily -Continue Potassium 10mg po BID Ppx - Lovenox 40mg BID Code - Conditional continues to improve Admission and Anticipated Discharge Date Admission Date: May 21, 2020 Subjective This pt continues to say he feels great, i personally spoke to respiratory therapy and they think we maybe able to transition to non high flow oxygen tonight Review of Systems Review of Systems: Moderate distress and fatigue no headache, blurry or double vision no speech or swallowing issues no chest pain, pressure or palpitations Significant shortness of breath, nonproductive cough but no wheezes no abdominal pain, nausea or vomiting, diarrhea or constipation no dysuria, hematuria or frequency no focal joint pain or swelling no back pain, CVA tenderness or radicular pain no bruising, bleeding or rashes no focal signs of weakness or numbness or altered sensation globally feels weak no complaints of anxiety or depression. Physical Exam Physical Exam: The patient appeared well nourished and normally developed. Respiratory distress Vital signs as documented. Head exam is normocephalic atraumatic no scleral icterus Neck is without JVD, thyromegaly, or carotid bruits. Lungs are coarse rhonchi bilaterally, no focal loss of breath sounds Cardiac exam, Rhythm is regular.. No murmurs, rubs or gallops. Abdominal exam reveals normal bowel sounds, soft non tender, no masses Extremities are nonedematous and both pedal pulses are present Neurologic exam is alert and oriented, no focal loss of strength or sensation Skin is without bruises or rashes Psychologically is without concerns for anxiety or depression. Results & Data Results & Data ([facility]) Vital Signs (Past 12 Hours) Vital Signs Temp Pulse Pulse Resp BP Pulse Ox 05/24/20 15:50 98.4 F 67 22 167/90 H 95 05/24/20 15:39 66 16 94 05/24/20 11:31 72 17 93 05/24/20 07:40 76 18 92 05/24/20 06:04 98.1 F 74 20 152/83 H 93 PG Care Time/CCT Total # of Minutes Spent Total Time Spent with Patient: Total time spent is greater than 50% in coordination of care (as documented) at patient's floor/unit and/or counseling patient: Coding Level of Care Code 63189 Subseq Hosp Care Lvl 2 Diagnoses Pneumonia due to 2019-nCoV U07.1; J12.89 HLD (hyperlipidemia) E78.5 Hyperlipidemia type: unspecified BPH (benign prostatic hyperplasia) N40.0 Lower urinary tract symptom presence: symptoms absent HTN (hypertension) I10 Hypertension type: essential hypertension (1) HLD (hyperlipidemia) Hyperlipidemia type: unspecified Qualified Code(s): E78.5 - Hyperlipidemia, unspecified (2) BPH (benign prostatic hyperplasia) Lower urinary tract symptom presence: symptoms absent Qualified Code(s): N40.0 - Benign prostatic hyperplasia without lower urinary tract symptoms (3) HTN (hypertension) Hypertension type: essential hypertension Qualified Code(s): I10 - Essential (primary) hypertension
[2020-05-24] MEDS: REMDESIVIR 100mg: Days 2-5 IV SCH (21:26)
[2020-05-24] MEDS: NSS 30mL Flush, Days 1-5 IV SCH (21:32)
[2020-05-25 05:41] LABS: D Dimer 840 ug/L FEU (0-500)
[2020-05-25 05:45] LABS: Creatinine Clr Calc Pharmacy 107.3 ml/min; Est GFR (African American) 106.6
[2020-05-25 05:48] LABS: Troponin I < 0.015 ng/ml (0-0.045)
[2020-05-25] MEDS: POTASSIUM CHLORIDE 10 MEQ TABCR PO SCH ×2 (09:04→20:41)
[2020-05-25] MEDS: ZINC SULFATE 220 MG CAPSULE PO SCH (09:04)
[2020-05-25] MEDS: guaiFENesin 600 MG TABCR PO SCH ×2 (09:04→20:41)
[2020-05-25] MEDS: DOXYCYCLINE HYCLATE 100 MG CAP PO SCH ×2 (09:04→20:41)
[2020-05-25] MEDS: lisinopril 20 MG TAB PO SCH (09:04)
[2020-05-25] MEDS: FAMOTIDINE 20 MG in SYRINGE 3 ML IV SCH ×2 (09:05→20:42)
[2020-05-25] MEDS: FUROSEMIDE 40 MG TAB PO SCH (09:05)
[2020-05-25] MEDS: TAMSULOSIN HCL 0.4 MG CAP PO SCH (09:05)
[2020-05-25] MEDS: ENOXAPARIN INJ 40 MG/0.4 ML SYR SQ SCH ×2 (09:05→20:41)
[2020-05-25] MEDS: SIMVASTATIN 80 MG TAB PO SCH (09:05)
[2020-05-25] MEDS: dexAMETHasone 6 MG in SYRINGE 0 ML IV SCH (09:08)
--- NOTE | 2020-05-25 18:18 | Hospitalist Progress Note ---
Date of Service May 25, 2020 Assessment & Plan (1) Pneumonia due to 2019-nCoV: 69yo C male presenting with cough, SOB, hypoxic on arrival to 55% on room air. Patient is positive for Covid-[address] with bilateral airspace disease. Patient presently on High Flow NC patient now weaned to nasal cannula d dimer 1380 secondary to inflammatory response, its risk or fall has been associated with mortality prediction Nasal cannula and Oxymizer being used His is ill too with confirmatory diagnosis of Covid-19. Procalcitonin is negative. BNP within normal range at 391. Troponin 0.029 Airborne and contact precautions -Remdesivir - discussed with Pulmonary as well as Pharmacy will complete course -Convalescent plasma - consented, administered -Decadron 6mg x 10 days -Zinc 220mg po daily -Pepcid 20mg IV BID -administered Lasix 40mg IV x 1 dose in event of pulmonary edema contributing to patient's respiratory status -Pulmonary consultation appreciated (2) HLD (hyperlipidemia): Chronic. Stable -Continue Simvastatin 80mg po daily (3) BPH (benign prostatic hyperplasia): Chronic -Continue Flomax (4) HTN (hypertension): Elevated blood pressure on arrival now well controlled -Continue Lisinopril 20mg po daily - it is recommended that patient's on DAMIAN- inhibitors/ARBS be continued on these medications in setting of Covid-19 -Continue Lasix 40mg po daily -Continue Potassium 10mg po BID Ppx - Lovenox 40mg BID Code - Conditional Dissipate discharge over the weekend Admission and Anticipated Discharge Date Admission Date: May 21, 2020 Subjective This pt continues to say he feels great, he has been weaned now to nasal cannula Review of Systems Review of Systems: Moderate distress and fatigue no headache, blurry or double vision no speech or swallowing issues no chest pain, pressure or palpitations Significant shortness of breath, nonproductive cough but no wheezes no abdominal pain, nausea or vomiting, diarrhea or constipation no dysuria, hematuria or frequency no focal joint pain or swelling no back pain, CVA tenderness or radicular pain no bruising, bleeding or rashes no focal signs of weakness or numbness or altered sensation globally feels weak no complaints of anxiety or depression. Physical Exam Physical Exam: The patient appeared well nourished and normally developed. Respiratory distress Vital signs as documented. Head exam is normocephalic atraumatic no scleral icterus Neck is without JVD, thyromegaly, or carotid bruits. Lungs are coarse rhonchi bilaterally, no focal loss of breath sounds Cardiac exam, Rhythm is regular.. No murmurs, rubs or gallops. Abdominal exam reveals normal bowel sounds, soft non tender, no masses Extremities are nonedematous and both pedal pulses are present Neurologic exam is alert and oriented, no focal loss of strength or sensation Skin is without bruises or rashes Psychologically is without concerns for anxiety or depression. Results & Data Results & Data ([facility]) Vital Signs (Past 12 Hours) Vital Signs Temp Pulse Resp BP Pulse Ox 05/25/20 14:48 98.2 F 84 16 91 05/25/20 08:20 91 05/25/20 08:14 98.4 F 89 16 133/74 91 PG Care Time/CCT Total # of Minutes Spent Total Time Spent with Patient: Total time spent is greater than 50% in coordination of care (as documented) at patient's floor/unit and/or counseling patient: Coding Level of Care Code 53744 Subseq Hosp Care Lvl 3 Diagnoses Pneumonia due to 2019-nCoV U07.1; J12.89 HLD (hyperlipidemia) E78.5 Hyperlipidemia type: unspecified BPH (benign prostatic hyperplasia) N40.0 Lower urinary tract symptom presence: symptoms absent HTN (hypertension) I10 Hypertension type: essential hypertension (1) HLD (hyperlipidemia) Hyperlipidemia type: unspecified Qualified Code(s): E78.5 - Hyperlipidemia, unspecified (2) BPH (benign prostatic hyperplasia) Lower urinary tract symptom presence: symptoms absent Qualified Code(s): N40.0 - Benign prostatic hyperplasia without lower urinary tract symptoms (3) HTN (hypertension) Hypertension type: essential hypertension Qualified Code(s): I10 - Essential (primary) hypertension
[2020-05-25] MEDS: REMDESIVIR 100mg: Days 2-5 IV SCH (20:42)
[2020-05-25] MEDS: NSS 30mL Flush, Days 1-5 IV SCH (21:13)
[2020-05-26 06:38] LABS: BUN Creatinine Ratio 30.1 (10-20); Calcium 8.4 mg/dl (8.5-10.1); Creatinine Clr Calc Pharmacy 96.4 ml/min; Est GFR (African American) 102.5; Est GFR (Non-African American) 88.5; Potassium 4.5 mmol/L (3.5-5.1)
[2020-05-26] MEDS: TAMSULOSIN HCL 0.4 MG CAP PO SCH (08:11)
[2020-05-26] MEDS: lisinopril 20 MG TAB PO SCH (08:11)
[2020-05-26] MEDS: SIMVASTATIN 80 MG TAB PO SCH (08:11)
[2020-05-26] MEDS: dexAMETHasone 6 MG in SYRINGE 0 ML IV SCH (08:12)
[2020-05-26] MEDS: FUROSEMIDE 40 MG TAB PO SCH (08:14)
[2020-05-26] MEDS: POTASSIUM CHLORIDE 10 MEQ TABCR PO SCH ×2 (08:14→20:30)
[2020-05-26] MEDS: ZINC SULFATE 220 MG CAPSULE PO SCH (08:14)
[2020-05-26] MEDS: guaiFENesin 600 MG TABCR PO SCH ×2 (08:14→20:30)
[2020-05-26] MEDS: ENOXAPARIN INJ 40 MG/0.4 ML SYR SQ SCH ×2 (08:14→20:31)
[2020-05-26] MEDS: DOXYCYCLINE HYCLATE 100 MG CAP PO SCH ×2 (08:15→20:30)
[2020-05-26] MEDS: FAMOTIDINE 20 MG in SYRINGE 3 ML IV SCH ×2 (08:51→20:31)
--- NOTE | 2020-05-26 15:57 | Hospitalist Progress Note ---
Date of Service May 26, 2020 Assessment & Plan (1) Pneumonia due to 2019-nCoV: 69yo C male presenting with cough, SOB, hypoxic on arrival to 55% on room air. Patient is positive for Covid-[address] with bilateral airspace disease. Patient presently on High Flow NC patient now weaned to nasal cannula d dimer 1380 secondary to inflammatory response, its risk or fall has been associated with mortality prediction Nasal cannula and Oxymizer being used, the pt was 90% on room air and 85% when walking around the room for less than one minute, offered home oxygen vs waiting another day if not improved by 05/27 will have home oxygen His is ill too with confirmatory diagnosis of Covid-19. Procalcitonin is negative. BNP within normal range at 391. Troponin 0.029 Airborne and contact precautions -Remdesivir - discussed with Pulmonary as well as Pharmacy will complete course -Convalescent plasma - consented, administered -Decadron 6mg x 10 days -Zinc 220mg po daily -Pepcid 20mg IV BID -administered Lasix 40mg IV x 1 dose in event of pulmonary edema contributing to patient's respiratory status -Pulmonary consultation appreciated (2) HLD (hyperlipidemia): Chronic. Stable -Continue Simvastatin 80mg po daily (3) BPH (benign prostatic hyperplasia): Chronic -Continue Flomax (4) HTN (hypertension): Elevated blood pressure on arrival now well controlled -Continue Lisinopril 20mg po daily - it is recommended that patient's on DAMIAN- inhibitors/ARBS be continued on these medications in setting of Covid-19 -Continue Lasix 40mg po daily -Continue Potassium 10mg po BID Ppx - Lovenox 40mg BID Code - Conditional Dissipate discharge over the weekend Admission and Anticipated Discharge Date Admission Date: May 21, 2020 Subjective This pt continues to say he feels great, he has been weaned now to nasal cannula Review of Systems Review of Systems: Moderate distress and fatigue no headache, blurry or double vision no speech or swallowing issues no chest pain, pressure or palpitations Significant shortness of breath, nonproductive cough but no wheezes no abdominal pain, nausea or vomiting, diarrhea or constipation no dysuria, hematuria or frequency no focal joint pain or swelling no back pain, CVA tenderness or radicular pain no bruising, bleeding or rashes no focal signs of weakness or numbness or altered sensation globally feels weak no complaints of anxiety or depression. Physical Exam Physical Exam: The patient appeared well nourished and normally developed. Respiratory distress Vital signs as documented. Head exam is normocephalic atraumatic no scleral icterus Neck is without JVD, thyromegaly, or carotid bruits. Lungs are coarse rhonchi bilaterally, no focal loss of breath sounds Cardiac exam, Rhythm is regular.. No murmurs, rubs or gallops. Abdominal exam reveals normal bowel sounds, soft non tender, no masses Extremities are nonedematous and both pedal pulses are present Neurologic exam is alert and oriented, no focal loss of strength or sensation Skin is without bruises or rashes Psychologically is without concerns for anxiety or depression. Results & Data Results & Data ([facility]) Vital Signs (Past 12 Hours) Vital Signs Temp Pulse Resp BP Pulse Ox 05/26/20 08:05 97.9 F 80 18 137/72 94 PG Care Time/CCT Total # of Minutes Spent Total Time Spent with Patient: Total time spent is greater than 50% in coordination of care (as documented) at patient's floor/unit and/or counseling patient: Coding Level of Care Code 22536 Subseq Hosp Care Lvl 2 Diagnoses Pneumonia due to 2019-nCoV U07.1; J12.89 HLD (hyperlipidemia) E78.5 Hyperlipidemia type: unspecified BPH (benign prostatic hyperplasia) N40.0 Lower urinary tract symptom presence: symptoms absent HTN (hypertension) I10 Hypertension type: essential hypertension (1) HLD (hyperlipidemia) Hyperlipidemia type: unspecified Qualified Code(s): E78.5 - Hyperlipidemia, unspecified (2) BPH (benign prostatic hyperplasia) Lower urinary tract symptom presence: symptoms absent Qualified Code(s): N40.0 - Benign prostatic hyperplasia without lower urinary tract symptoms (3) HTN (hypertension) Hypertension type: essential hypertension Qualified Code(s): I10 - Essential (primary) hypertension
[2020-05-27 08:28] LABS: D Dimer 720 ug/L FEU (0-500)
[2020-05-27] MEDS: dexAMETHasone 6 MG in SYRINGE 0 ML IV SCH (08:29)
[2020-05-27] MEDS: ENOXAPARIN INJ 40 MG/0.4 ML SYR SQ SCH (08:29)
[2020-05-27] MEDS: guaiFENesin 600 MG TABCR PO SCH (08:30)
[2020-05-27] MEDS: POTASSIUM CHLORIDE 10 MEQ TABCR PO SCH (08:30)
[2020-05-27] MEDS: SIMVASTATIN 80 MG TAB PO SCH (08:30)
[2020-05-27] MEDS: lisinopril 20 MG TAB PO SCH (08:31)
[2020-05-27] MEDS: ZINC SULFATE 220 MG CAPSULE PO SCH (08:31)
[2020-05-27] MEDS: TAMSULOSIN HCL 0.4 MG CAP PO SCH (08:31)
[2020-05-27] MEDS: DOXYCYCLINE HYCLATE 100 MG CAP PO SCH (08:31)
[2020-05-27] MEDS: FUROSEMIDE 40 MG TAB PO SCH (08:31)
[2020-05-27 09:46] VITALS: BP 137/69; O2SAT 92
[2020-05-27 09:53] VITALS: TEMP 98.1
[2020-05-27 12:05] VITALS: PULSE 91
[2020-05-27] MEDS: FAMOTIDINE 20 MG in SYRINGE 3 ML IV SCH (12:25)
--- NOTE | 2020-05-27 17:17 | Discharge Summary ---
Date of Service May 27, 2020 Admission HPI Per Admitting Provider Milton Martinez is a 69yo C male presenting with Covid-19 PNA. Patient developed cough with mild SOB, diarrhea over the last week. He has had progressive worsening of SOB and cough over the last 3 days with acute worsening over the last 24 hours which is why he came to the ER. He denies CP, loss of taste or smell or fever. His is ill as well. Patient was seen by his PCP earlier today and was diagnosed with bilateral PNA and was tested for Covid-19. On arrival to the ER patient afebrile, hypertensive at 175/112, HR=99, RR of 26 saturating 55% on room air. He was placed on High Flow nasal cannula with i ncrease in FiO2 to 90%. He is presently saturating 92% with adequate wave form on HF 90% FiO2. ER Course: Dexamethasone 6mg, Albuterol 3mL neb x 2 Principal Diagnosis Covid pneumonia with hypoxia Discharge Exam The patient appeared well Vital signs as documented. Lungs are clear to auscultation and appear unlabored Cardiac exam, Rhythm is regular.. No murmurs, rubs or gallops. Abdominal exam reveals normal bowel sounds, soft non tender, no masses Extremities are nonedematous and both pedal pulses are normal. Neurologic exam is alert and oriented, no focal loss of strength or sensation Skin is without bruises or rashes Psychologically is without concerns for anxiety or depression. Discharge Data Allergies Allergy/AdvReac Type Severity Reaction Status Date / Time No Known Allergies Allergy Unknown Verified 05/21/20 18:06 Consultations 05/21/20 19:10 ED Decision to Admit Stat 05/21/20 22:40 Consult Pulmonology Routine Ordered Studies 05/21/20 16:20 CT angio chest PE protocol Stat Hospital Course (1) Pneumonia due to 2019-nCoV: 69yo C male presenting with cough, SOB, hypoxic on arrival to 55% on room air. Patient is positive for Covid-[address] with bilateral airspace disease. Patient presently on High Flow NC patient now weaned to nasal cannula d dimer 1380 secondary to inflammatory response, its risk or fall has been associated with mortality prediction Nasal cannula and Oxymizer being used, the pt was 90% on room air and 85% when walking around the room for less than one minute, offered home oxygen vs waiting another day if not improved by 05/27 will have home oxygen His is ill too with confirmatory diagnosis of Covid-19. Procalcitonin is negative. BNP within normal range at 391. Troponin 0.029 -Remdesivir - discussed with Pulmonary as well as Pharmacy will complete course -Convalescent plasma - consented, administered -Decadron 6mg x 10 days -Zinc 220mg po daily Patient was able to ambulate in his room with actually improved oxygenation that was documented in the computer. He was discharged home without oxygen and see when he ambulated his oxygen saturation lisa to 93%. Patient was instructed if he feels more breathless or short of breath return to the hospital likely have oxygen arranged for home (2) HLD (hyperlipidemia): Chronic. Stable -Continue Simvastatin 80mg po daily (3) BPH (benign prostatic hyperplasia): Chronic -Continue Flomax (4) HTN (hypertension): Elevated blood pressure on arrival now well controlled -Continue Lisinopril 20mg po daily - it is recommended that patient's on DAMIAN- inhibitors/ARBS be continued on these medications in setting of Covid-19 -Continue Lasix 40mg po daily -Continue Potassium 10mg po BID Total Time Total Time Spent Total Time Spent (In Minutes): It required greater than 30 minutes to prepare this patient for discharge Discharge Plan Discharge Items Patient Disposition: Home - Self-Care Reason For Visit: COVID - 19 PNA, HYPOXIA Discharge Diagnosis: covid 19 pneumonia Activity: Per Instructions section Activity Comment: 14 day self isolation from positive test Non-emergency contact: Primary Care Provider Call non-emergency contact if: you have any medication questions Follow-up/Referrals: Roge Arevalo MD [Primary Care Provider] - Diet: Regular Addtl Attending Provider Instructions: Home Isolation COVID-19 Instructions The following information about Home Isolation is from the CDC Website: https://www.cdc.gov/coronavirus/2019-ncov/hcp/epderskc-xvtqwug-oykmwf.html Stay home except to get medical care People who are mildly ill with COVID-19 are able to isolate at home during their illness. You should restrict activities outside your home, except for getting medical care. Do not go to work, school, or public areas. Avoid using public transportation, ride-sharing, or taxis. Separate yourself from other people and animals in your home People: As much as possible, you should stay in a specific room and away from other people in your home. Also, you should use a separate bathroom, if available. Animals: You should restrict contact with pets and other animals while you are sick with COVID-19, just like you would around other people. Although there have not been reports of pets or other animals becoming sick with COVID-19, it is still recommended that people sick with COVID-19 limit contact with animals until more information is known about the virus. When possible, have another member of your household care for your animals while you are sick. If you are sick with COVID-19, avoid contact with your pet, including petting, snuggling, being kissed or licked, and sharing food. If you must care for your pet or be around animals while you are sick, wash your hands before and after you interact with pets and wear a face mask. Call ahead before visiting your doctor If you have a medical appointment, call the healthcare provider and tell them that you have or may have COVID-19. This will help the healthcare providers office take steps to keep other people from getting infected or exposed. Wear a face mask You should wear a face mask when you are around other people (e.g., sharing a room or vehicle) or pets and before you enter a healthcare providers office. If you are not able to wear a face mask (for example, because it causes trouble breathing), then people who live with you should not stay in the same room with you, or they should wear a face mask if they enter your room. Cover your coughs and sneezes Cover your mouth and nose with a tissue when you cough or sneeze. Throw used tissues in a lined trash can. Immediately wash your hands with soap and water for at least 20 seconds or, if soap and water are not available, clean your hands with an alcohol-based hand knife glazer that contains at least 60% alcohol. Clean your hands often Wash your hands often with soap and water for at least 20 seconds, especially after blowing your nose, coughing, or sneezing; going to the bathroom; and before eating or preparing food. If soap and water are not readily available, use an alcohol-based hand knife glazer with at least 60% alcohol, covering all surfaces of your hands and rubbing them together until they feel dry. Soap and water are the best option if hands are visibly dirty. Avoid touching your eyes, nose, and mouth with unwashed hands. Avoid sharing personal household items You should not share dishes, drinking glasses, cups, eating utensils, towels, or bedding with other people or pets in your home. After using these items, they should be washed thoroughly with soap and water. Clean all high-touch surfaces everyday High touch surfaces include counters, tabletops, doorknobs, bathroom fixtures, toilets, phones, keyboards, tablets, and bedside tables. Also, clean any surfaces that may have blood, stool, or body fluids on them. Use a household cleaning spray or wipe, according to the label instructions. Labels contain instructions for safe and effective use of the cleaning product including precautions you should take when applying the product, such as wearing gloves and making sure you have good ventilation during use of the product. Monitor your symptoms Seek prompt medical attention if your illness is worsening (e.g., difficulty breathing).Beforeseeking care, call your healthcare provider and tell them that you have, or are being evaluated for, COVID-19. Put on a face mask before you enter the facility. These steps will help the healthcare providers office to keep other people in the office or waiting room from getting infected or exposed. Ask your healthcare provider to call the local or state health department. Persons who are placed under active monitoring or facilitated self- monitoring should follow instructions provided by their local health department or occupational health professionals, as appropriate. When working with your local health department check their available hours. If you have a medical emergency and need to call 911, notify the dispatch personnel that you have, or are being evaluated for COVID-19. If possible, put on a face mask before emergency medical services arrive. Discontinuing home isolation Patients with confirmed COVID-19 should remain under home isolation precautions until the risk of secondary transmission to others is thought to be low. The decision to discontinue home isolation precautions should be made on a [id number] basis, in consultation with healthcare providers and [facility] and local health departments. Pending Studies at Discharge: No Stand-Alone Forms: [employer] ([place]), Smoking Cessation Medications and DC Order Prescriptions: New zinc sulfate [Orazinc] 220 (50) mg Capsule 220 mg PO QAM Qty: 5 RF: 0 dexamethasone [Decadron] 6 mg tablet 6 mg PO DAILY Qty: 3 RF: 0 Continued furosemide 40 mg tablet 40 mg PO DAILY RF: 0 lisinopril 20 mg tablet 20 mg PO DAILY RF: 0 simvastatin 80 mg tablet 80 mg PO DAILY RF: 0 potassium chloride 10 mEq tablet extended release 10 meq PO BID RF: 0 omeprazole 20 mg capsule,delayed release(DR/EC) 20 mg PO DAILY RF: 0 tamsulosin 0.4 mg capsule 0.4 mg PO DAILY RF: 0 Discharge Orders: Discharge Order (Routine); Ordered 05/27/20 Ordered By: Derek Clark Admission Data Admit Date/Time: 05/21/20 19:55 Attending Provider: Derek Clark Admit Provider: Cami Cho Primary Care Provider: Roge Arevalo Other Providers: Cami Cho ; Francisca Ko Other Interventions: Discharge Summary Assessment (RN) Last Done: 05/27/20 12:02 Coding Level of Care Code D/C Day Management >30 mins Diagnoses Pneumonia due to 2019-nCoV U07.1; J12.89 HLD (hyperlipidemia) E78.5 Hyperlipidemia type: unspecified BPH (benign prostatic hyperplasia) N40.0 Lower urinary tract symptom presence: symptoms absent HTN (hypertension) I10 Hypertension type: essential hypertension
== END 2020-05-27 13:41 | disposition home or self-care (01) | DRG 177 ==
LOC: ED 15:55 → 3N 19:55 → SUATTDRO 19:55 → 3N 21:11

== ENCOUNTER 2021-04-18 13:41 | Inpatient (IN) ==
[2021-04-18] MEDS ORDERED: SODIUM CHLORIDE 0.9% 500 ML IV STA (16:11)
[2021-04-18] MEDS ORDERED: KETOROLAC 30 MG/ML VIAL IV STA (16:11)
--- NOTE | 2021-04-18 16:14 | Emergency Department Note ---
History of Present Illness General Chief complaint: Abdominal Pain Stated complaint: ABDOMINAL PAIN Time Seen by Provider: 04/18/21 15:38 History of Present Illness Maximum Pain Intensity: 8 70-year-old male presents to the ED with a chief complaint of generalized abdominal pain. His symptoms started while he was mowing the grass earlier today. He states that it feels like someone punched him in the stomach. Denies any nausea, vomiting or diarrhea. His last normal bowel movement was late morning. He has not taken anything for the pain. It seems to be a little worse when he coughs. No additional complaints this time. Denies urinary symptoms. Home Medications Medication Instructions Recorded Confirmed Type furosemide 40 mg tablet 40 mg PO BID 05/21/20 05/21/20 History lisinopril 20 mg tablet 20 mg PO DAILY 05/21/20 04/18/21 History omeprazole 20 mg capsule,delayed 20 mg PO DAILY 05/21/20 04/18/21 History release potassium chloride 10 mEq 10 meq PO BID 05/21/20 04/18/21 History tablet,extended release simvastatin 80 mg tablet 80 mg PO DAILY 05/21/20 04/18/21 History tamsulosin 0.4 mg capsule 0.4 mg PO DAILY 05/21/20 04/18/21 History dexamethasone 6 mg tablet 6 mg PO DAILY #3 tab 05/27/20 Rx (Decadron) zinc sulfate 50 mg zinc (220 mg) 220 mg PO QAM #5 cap 05/27/20 Rx capsule (Orazinc) Allergies Allergy/AdvReac Type Severity Reaction Status Date / Time No Known Allergies Allergy Unknown Verified 05/21/20 18:06 Past Med/Surg History Medical History HLD (hyperlipidemia) HTN (hypertension) No pertinent family history Surgical History No pertinent past surgical history Social History Smoking Status: Never smoker Hx Alcohol Use: No Hx Substance Use: No Preferred Language: Vietnamese Communication Ability: Effective [employer] Required: No Current Living Situation: Spouse Feels Safe at Home: Yes Assistive Devices: Denture - Upper, Denture - Lower and Glasses Review of Systems A total of 10 systems reviewed and were otherwise negative Physical Exam Vital Signs Vital Signs - 24 hr 04/18/21 13:55 04/18/21 16:28 04/18/21 17:14 Temperature 36.8 C Temperature Source Temporal Artery Scan Pulse Rate 115 H 97 H Pulse Rate from SpO2 Sensor 96 H Respiratory Rate 20 21 Respiratory Effort / Characteristics Non-Labored Respiratory Depth Normal Blood Pressure 155/76 H 134/78 Blood Pressure Mean 102 96 Pulse Oximetry 93 100 91 Oxygen Delivery Method Room Air Room Air Sepsis Recent Fever Within 48 Hours No Sepsis New/Unexplained Change in Mental Status N/A Sepsis Action Taken by Nursing No Action Required 04/18/21 18:00 04/18/21 19:00 Temperature Temperature Source Pulse Rate 93 H 92 H Pulse Rate from SpO2 Sensor 94 H 92 H Respiratory Rate 20 Respiratory Effort / Characteristics Respiratory Depth Blood Pressure 117/65 120/58 L Blood Pressure Mean 82 78 Pulse Oximetry 92 93 Oxygen Delivery Method Room Air Sepsis Recent Fever Within 48 Hours Sepsis New/Unexplained Change in Mental Status Sepsis Action Taken by Nursing CONSTITUTIONAL/VITAL SIGNS: Reviewed / noted above. GENERAL: Non-toxic in appearance. INTEGUMENTARY: Warm, dry, and Flushing. HEAD: Normocephalic. EYES: without scleral icterus or trauma. ENT/OROPHARYNX: clear and moist. LYMPHADENOPATHY/NECK: Is supple without lymphadenopathy or meningismus. RESPIRATORY: Clear to auscultation bilaterally. No increased work of breathing. CARDIOVASCULAR: Regular rate and rhythm. GI/ABDOMEN: Soft and mildly tender diffusely. No organomegaly or pulsatile mass. Bowel sounds slightly hypoactive. EXTREMITIES: Warm and well perfused. BACK: No CVA tenderness. NEUROLOGICAL: Intact without focal deficits. PSYCHIATRIC: normal affect. MUSCULOSKELETAL: Normally developed with good muscle tone. TRIAGE NURSING DOCUMENTATION REVIEWED. Course Administered Medications Discontinued Medications Sodium Chloride (Nss) 500 mls @ 999 mls/hr IV .Q31M STA Stop: 04/18/21 16:41 Last Infusion: 04/18/21 17:11 Dose: 0 mls/hr Documented by: [id number] Admin: 04/18/21 16:33 Dose: 999 mls/hr Documented by: [id number] Ioversol (Optiray 320 100ml) 93 ml IV ONCE ONE Stop: 04/18/21 16:59 Last Admin: 04/18/21 16:59 Dose: 93 ml Documented by: [id number] Ketorolac Tromethamine (Ketorolac 30 Mg/Ml Vial) 30 mg IV NOW STA Stop: 04/18/21 16:12 Last Admin: 04/18/21 16:33 Dose: 30 mg Documented by: [id number] Medical Decision Making Differential Diagnosis Differential considered: pancreatitis, hepatitis, acute cholecystitis, AAA, UTI, pyelonephritis, kidney stones, appendicitis, diverticulitis, shingles, bowel obstruction, mesenteric ischemia, intussusception,hernia, testicular torsion Medical Records Attestation: I reviewed the patient's medical records. Home Medications Current Medication List: was personally reviewed by me Laboratory Data Attestation: I reviewed the patient's lab results. Result diagrams: 04/18/21 16:10 04/18/21 16:10 Lab Results 04/18/21 04/18/21 04/18/21 Range/Units 15:54 16:10 16:10 WBC 14.11 H (4.8-10.8) K/uL RBC 4.50 L (4.7-6.1) M/uL Hgb 14.1 (14.0-18.0) g/dL Hct 41.7 L (42-52) % MCV 92.7 (80-100) fL MCH 31.3 (25-34) pg MCHC 33.8 (32-36) g/dL RDW Std Deviation 46.8 H (36.4-46.3) fL RDW Coeff of Keenan 13.9 (11.5-14.5) % Plt Count 213 (130-400) K/uL MPV 9.8 (7.4-10.4) fL Immature Gran % (Auto) 0.4 % Neut % (Auto) 82.6 % Lymph % (Auto) 7.5 % Lipscomb % (Auto) 9.4 % Eos % (Auto) 0.0 % Baso % (Auto) 0.1 % Neut # (Auto) 11.67 H (1.4-6.5) K/uL Lymph # (Auto) 1.06 L (1.2-3.4) K/uL Lipscomb # (Auto) 1.32 H (0.11-0.59) K/uL Eos # (Auto) 0.00 (0-0.5) K/uL Baso # (Auto) 0.01 (0-0.2) K/uL Immature Gran # (Auto) 0.05 H (0.00-0.02) K/uL Sodium 138 (136-145) mmol/L Potassium 3.9 (3.5-5.1) mmol/L Chloride 102 (98-107) mmol/L Carbon Dioxide 28 (21-32) mmol/L Anion Gap 8.0 (3-11) BUN 19 H (7-18) mg/dl Creatinine 1.15 (0.6-1.4) mg/dl Est Cr Clr Drug Dosing 73.3 ml/min Est GFR ( Amer) 75.4 ml/min Est GFR (Non-Af Amer) 65.0 ml/min BUN/Creatinine Ratio 16.3 (10-20) Glucose 153 H (70-99) mg/dl Calcium 9.4 (8.5-10.1) mg/dl Total Bilirubin 4.4 H (0.2-1) mg/dl AST 256 H (15-37) U/L ALT 570 H (12-78) U/L Alkaline Phosphatase 161 H (45-117) U/L Total Protein 7.6 (6.4-8.2) gm/dl Albumin 3.4 (3.4-5.0) gm/dl Globulin 4.2 H (2.5-4.0) gm/dl Albumin/Globulin Ratio 0.8 L (0.9-2) Lipase 73270 H (73-393) U/L Urine Color Dark Yellow Urine Appearance Clear (Clear) Urine pH 6.5 (4.5-7.5) Ur Specific [place] 1.013 (1.000-1.030) Urine Protein Trace H (Negative) Urine Glucose (UA) Negative (Negative) Urine Ketones Negative (Negative) Urine Blood Negative (Negative) Urine Nitrite Negative (Negative) Urine Bilirubin 2+ H (Negative) Urine Urobilinogen Negative (Negative) Ur Leukocyte Esterase Negative (Negative) Urine WBC (Auto) 1-5 (0-5) /hpf Urine RBC (Auto) 0-4 (0-4) /hpf U Hyaline Cast (Auto) 0 (0-5) /lpf U Epithel Cells (Auto) 0-5 (0-5) /lpf Urine Bacteria (Auto) Negative (Negative) Imaging Data Radiologist's Impression: Abdomen/Pelvis CT 04/18/21 16:11 CT abd pelvis IV con only CLINICAL INDICATION: MN ^LABS A10 ^generalized abd pain. TECHNIQUE: Helical axial images of the abdomen and pelvis were obtained and displayed at 5 and 1 mm intervals. Automated dose lowering techniques and/or adjustment according to patient size were utilized for this exam. This exam was performed with intravenous contrast. COMPARISON: Comparison is made to CTA chest 05/21/2020 FINDINGS: Lower chest: Bibasilar atelectasis versus scarring is seen. Liver: Unremarkable. No focal lesions are seen. Gallbladder and biliary tree: Layering radiodense material is seen in the dependent portion of the gallbladder which may represent sludge versus stones. No intra- or extrahepatic biliary ductal dilation. Pancreas: Peripancreatic fat stranding is seen. The pancreatic tail is minimally enlarged compared to the prior exam. Spleen: Calcifications are noted in the spleen compatible with prior granulom atous disease. Adrenals: Unremarkable. Kidneys and ureters: Multiple cysts are seen in the bilateral kidneys, largest measuring 11 cm on the left and 4 cm on the right. Bladder: Unremarkable. Reproductive organs: Prostatic calcifications are seen which may represent prior hemorrhage or granulomatous disease. Prostatomegaly is seen. Bowel: Diverticulosis is seen without evidence of diverticulitis. Fat stranding is seen about the duodenum which may be reactive. Lymph nodes Retroperitoneal: Unremarkable. Mesenteric: Unremarkable. Pelvic: Unremarkable. Peritoneum: Normal Vessels: Atherosclerotic calcifications are seen. Abdominal wall: A tiny umbilical helical hernia is seen. There are bilateral fat-containing inguinal hernias. Bones: Degenerative changes in the visualized spine. IMPRESSION: Fat stranding is seen about the pancreas compatible with pancreatitis. There is mild prominence of the tail of the pancreas which may represent pancreatic edema. No peripancreatic abscess is noted. ACT 112: Negative or not required by law. Electronically signed by: Hero Echols M.D. 04/18/2021 5:18 PM MDM Narrative Patient presents to the ED with a chief complaint of abdominal pain that is generalized in nature. His abdominal exam did not reveal any focal tenderness. Is bowel sounds are slightly hypoactive. His vital signs reveal tachycardia and hypertension. CT scan of the abdomen pelvis as well as lipase suggest pancreatitis. His lipase is 10,348. White blood count was 14. AST is 256 and ALT is 576. Urine did not show infection. The patient denies alcohol use. The patient was hydrated with some IV fluids and given IV Toradol for pain. He will be seen by the hospitalist for further inpatient evaluation and care. Impression & Plan Acute pancreatitis Discharge Plan Visit Data Chief Complaint: Abdominal Pain Stated Complaint: ABDOMINAL PAIN ED Provider: Noel Tompkins Discharge Problem: Acute pancreatitis Patient Disposition: Being Evaluated by Hospitalist Forms Stand Alone Forms: [facility], Virtual Emergency Department, Important Visit Information Prescriptions Prescriptions: No Action furosemide 40 mg tablet 40 mg PO BID RF: 0 lisinopril 20 mg tablet 20 mg PO DAILY RF: 0 simvastatin 80 mg tablet 80 mg PO DAILY RF: 0 potassium chloride 10 mEq tablet extended release 10 meq PO BID RF: 0 omeprazole 20 mg capsule,delayed release(DR/EC) 20 mg PO DAILY RF: 0 tamsulosin 0.4 mg capsule 0.4 mg PO DAILY RF: 0 zinc sulfate [Orazinc] 220 (50) mg Capsule 220 mg PO QAM Qty: 5 RF: 0 dexamethasone [Decadron] 6 mg tablet 6 mg PO DAILY Qty: 3 RF: 0 Referrals Referrals: Roge Arevalo MD [Primary Care Provider] -
[2021-04-18 16:32] LABS: Basophils # (auto) 0.01 K/uL (0-0.2); Basophils % (auto) 0.1 %; Hematocrit (blood only) 41.7 % (42-52); Hemoglobin 14.1 g/dL (14.0-18.0); Immature Granulocytes # (auto) 0.05 K/uL (0.00-0.02); Immature Granulocytes % (auto) 0.4 %; Lymphocytes # (auto) 1.06 K/uL (1.2-3.4); Lymphocytes % (auto) 7.5 %; Mean Corpuscular Hemoglobin 31.3 pg (25-34); Mean Corpuscular Hgb Conc 33.8 g/dL (32-36); Mean Corpuscular Volume 92.7 fL (80-100); Mean Platelet Volume 9.8 fL (7.4-10.4); Monocytes # (auto) 1.32 K/uL (0.11-0.59); Monocytes % (auto) 9.4 %; Neutrophils # (auto) 11.67 K/uL (1.4-6.5); Neutrophils % (auto) 82.6 %; Platelet Count 213 K/uL (130-400); RDW Coefficient of Variation 13.9 % (11.5-14.5); RDW Standard Deviation 46.8 fL (36.4-46.3); White Blood Count 14.11 K/uL (4.8-10.8)
[2021-04-18 16:46] LABS: Appearance Urine Clear (Clear); Bacteria Urine Automated Negative (Negative); Blood Urine Negative (Negative); Cast Urine Automated 0 /lpf (0-5); Color Urine Dark Yellow; Epithelial Cell Urine Auto 0-5 /lpf (0-5); Glucose Urine UA Negative (Negative); Ketones Urine Negative (Negative); Leukocyte Esterase Urine Negative (Negative); Nitrite Urine Negative (Negative); Protein Urine Trace (Negative); RBC Urine Automated 0-4 /hpf (0-4); Specific Gravity Urine 1.013 (1.000-1.030); Urobilinogen Urine Negative (Negative); pH Urine 6.5 (4.5-7.5)
[2021-04-18 16:48] LABS: Bilirubin Urine 2+ (Negative)
[2021-04-18 16:50] LABS: Albumin Level 3.4 gm/dl (3.4-5.0); BUN Creatinine Ratio 16.3 (10-20); Calcium 9.4 mg/dl (8.5-10.1); Creatinine Clr Calc Pharmacy 73.3 ml/min; Est GFR (African American) 75.4 ml/min; Potassium 3.9 mmol/L (3.5-5.1)
[2021-04-18 16:52] LABS: Albumin Globulin Ratio 0.8 (0.9-2); Bilirubin,Total 4.4 mg/dl (0.2-1); Globulin 4.2 gm/dl (2.5-4.0); Total Protein 7.6 gm/dl (6.4-8.2)
[2021-04-18] MEDS ORDERED: OPTIRAY 320 100ml IV ONE (16:58)
--- NOTE | 2021-04-18 17:20 | CT Scan Report ---
CT abd pelvis IV con only CLINICAL INDICATION: MN ^LABS A10 ^generalized abd pain. TECHNIQUE: Helical axial images of the abdomen and pelvis were obtained and displayed at 5 and 1 mm i ntervals. Automated dose lowering techniques and/or adjustment according to patient size were utilize d for this exam. This exam was performed with intravenous contrast. COMPARISON: Comparison is made to CTA chest 05/21/2020 FINDINGS: Lower chest: Bibasilar atelectasis versus scarring is seen. Liver: Unremarkable. No focal lesions are seen. Gallbladder and biliary tree: Layering radiodense material is seen in the dependent portion of the ga llbladder which may represent sludge versus stones. No intra- or extrahepatic biliary ductal dilation . Pancreas: Peripancreatic fat stranding is seen. The pancreatic tail is minimally enlarged compared to the prior exam. Spleen: Calcifications are noted in the spleen compatible with prior granulomatous disease. Adrenals: Unremarkable. Kidneys and ureters: Multiple cysts are seen in the bilateral kidneys, largest measuring 11 cm on the left and 4 cm on the right. Bladder: Unremarkable. Reproductive organs: Prostatic calcifications are seen which may represent prior hemorrhage or granul omatous disease. Prostatomegaly is seen. Bowel: Diverticulosis is seen without evidence of diverticulitis. Fat stranding is seen about the duo denum which may be reactive. Lymph nodes Retroperitoneal: Unremarkable. Mesenteric: Unremarkable. Pelvic: Unremarkable. Peritoneum: Normal Vessels: Atherosclerotic calcifications are seen. Abdominal wall: A tiny umbilical helical hernia is seen. There are bilateral fat-containing inguinal hernias. Bones: Degenerative changes in the visualized spine. IMPRESSION: Fat stranding is seen about the pancreas compatible with pancreatitis. There is mild prominence of th e tail of the pancreas which may represent pancreatic edema. No peripancreatic abscess is noted. ACT 112: Negative or not required by law. Electronically signed by: Hero Echols M.D. 04/18/2021 5:18 PM
--- NOTE | 2021-04-18 21:15 | XRay Report ---
XR chest 1V portable INDICATION: MN ^hypoxia. TECHNIQUE: Single frontal radiograph of the chest was obtained. Comparison: Comparison is made to chest one view 05/21/2020 FINDINGS: Exam is limited by underpenetration. Stable cardiomegaly is seen. Interval resolution of previously n oted bilateral airspace opacities. The lungs are essentially clear. No evidence of pleural effusion o r pneumothorax. IMPRESSION: No acute chest disease. ACT 112: Negative or not required by law. Electronically signed by: Hero Echols M.D. 04/18/2021 9:14 PM
--- NOTE | 2021-04-18 23:35 | History & Physical Report ---
Date of Service April 18, 2021 Assessment & Plan (1) Acute pancreatitis: Plan: Milton Martinez is a 70-year-old male with past medical history of BPH, hyperlipidemia, hypertension who comes in due to abdominal pain for [address] showing pancreatitis, common dile duct debris, and gallstones. Acute Pancreatitis Lipase [id number] MRCP statrad read: Under distended contracted gallbladder with stones/debris. Suspected debris in the common bile duct as well. Pancreatitis. Small focal dilatation related to the pancreatic duct versus small high signal foci in the pancreas. Mild fatty liver. Renal cyst. Admit to med telemetry Consult GI N.p.o. Normal saline at 250 cc/h Trend lipase Bile Duct Debris MRCP as above T bili 4.4, AST 256, ALT 570, alk phos 161 Initiate Zosyn for concerns of common bile duct obstruction GI consult as above for consideration of ERCP N.p.o. Hypertension/Hyperlipidemia Continue home lisinopril, furosemide, simvastatin BPH Continue home tamsulosin GERD Continue PPI per hospital formulary DVT prophylaxis: Hold chemoprophylaxis in case of procedure Dispo: Admit to med telemetry FEN GI: N.p.o., NSS at 250 cc/h CODE STATUS: Conditional code (2) BPH (benign prostatic hyperplasia): (3) HLD (hyperlipidemia): (4) HTN (hypertension): (5) Bile duct abnormality: History of Present Illness Primary Care Provider: Roge Arevalo MD Milton Martinez is a 70-year-old male with past medical history of BPH, hyperlipidemia, hypertension who comes in due to abdominal pain for 1 day. His abdominal pain started today as he was mowing the grass at home. He localizes the pain to the mid upper abdomen, and states that it felt like someone punched him in the stomach. He did not have any nausea, vomiting, fever, chills, diarrhea, constipation. He rates that pain 7 out of 10 at worst, but states that currently he has no pain since he was given medications in the ED. In the ED he received Toradol 30 mg IV x1, 1 L normal saline bolus. Lab work showed a white count of 14.11, hemoglobin 14.1, platelet count 213. Metabolic panel showed normal electrolytes. He had elevated T bili to 4.4, AST of 256, ALT of 570, alk phos [place] 161, [place] [address]. At this point, MRCP was ordered with statrad read as follows: "Under distended contracted gallbladder with stones/debris. Suspected debris in the common bile duct as well. Pancreatitis. Small focal dilatation related to the pancreatic duct versus small high signal foci in the pancreas. Mild fatty liver. Renal cyst." Radiologist:Silke Nagy MD Allergies Allergy/AdvReac Type Severity Reaction Status Date / Time No Known Allergies Allergy Unknown Verified 04/18/21 21:05 Home Medications Medication Instructions Recorded Confirmed Type furosemide 40 mg tablet 40 mg PO BID 05/21/20 04/18/21 History lisinopril 20 mg tablet 20 mg PO DAILY 05/21/20 04/18/21 History omeprazole 20 mg capsule,delayed 20 mg PO DAILY 05/21/20 04/18/21 History release potassium chloride 10 mEq 10 meq PO BID 05/21/20 04/18/21 History tablet,extended release simvastatin 80 mg tablet 80 mg PO HS 05/21/20 04/18/21 History tamsulosin 0.4 mg capsule 0.4 mg PO HS 05/21/20 04/18/21 History dexamethasone 2 mg tablet 2 mg PO DAILY 04/18/21 04/18/21 History Past Med/Surg History Medical History HLD (hyperlipidemia) HTN (hypertension) No pertinent family history Surgical History No pertinent past surgical history Social History Smoking Status: Never smoker Second Hand Exposure: No; Do You Dip or Chew Tobacco: No; Tobacco Cessation Education Requested by Patient: No Hx Alcohol Use: No Hx Substance Use: No Preferred Language: Norwegian Communication Ability: Effective [employer] Required: No Beliefs That Will Affect Care: None Current Living Situation: Spouse Current Living Situation Comment: at home with , independent at home. Other Information That Helps Us Care for You: No Feels Safe at Home: Yes Safety Concerns: Feels Safe At This Time Assistive Devices: None Review of Systems Review of Systems: Denies fever, chills, weakness, nausea, vomiting, shortness of breath, cough, chest pain, palpitations, urinary symptoms, neurologic deficits. Physical Exam Physical Exam: GENERAL: A&Ox3. NAD. HEENT: PERRL, EOMI. Moist mucous membranes. CHEST/LUNGS: CTAB A/P. No crackles, wheezes, rales, rhonchi. HEART: RRR. No m/g/r. No carotid bruits. ABDOMEN: ND, Mildly TTP at epigastric region, soft. BS+ x4. EXTREMITIES: No cyanosis, no clubbing, no edema SKIN: Warm and dry. No rashes or lesions. PSYCHIATRIC: Euthymic affect, no SI, no pressured speech, no hallucinations NEUROLOGIC: No FND. CN II-XII grossly intact. Results & Data Results & Data ([facility]) Vital Signs (Past 12 Hours) Vital Signs Temp Pulse Resp BP Pulse Ox 04/18/21 23:00 77 20 115/69 92 04/18/21 21:00 85 22 119/60 94 04/18/21 20:15 84 21 105/58 L 92 04/18/21 20:00 85 24 129/64 92 04/18/21 19:00 92 H 20 120/58 L 93 04/18/21 18:00 93 H 117/65 92 04/18/21 17:14 97 H 21 134/78 91 04/18/21 16:28 100 04/18/21 13:55 36.8 C 115 H 20 155/76 H 93 Supervising Physician Co-Signing Physician Notes Attending addendum: I have physically seen this patient, have supervised the medical residents activities, and agree with the H&P unless as otherwise noted. Assessment and Plan: Acute pancreatitis/bile duct debris- As noted via MRCP Admit to medical telemetry N.p.o. NSS Follow serial CBC with differential, chemistry profile and lipase levels Zosyn 4.5 g IV every 8 hours Consult gastroenterology for possible ERCP Hypertension- Continue lisinopril. Hold furosemide BPH- Continue tamsulosin GERD- Continue omeprazole/pantoprazole Remaining orders and notations as noted Resident Activity Tracking Resident Involvement: Resident Care Provided Care Provided: Adult Hospital Medicine (1) BPH (benign prostatic hyperplasia) Lower urinary tract symptom presence: symptoms absent Qualified Code(s): N40.0 - Benign prostatic hyperplasia without lower urinary tract symptoms (2) HLD (hyperlipidemia) Hyperlipidemia type: unspecified Qualified Code(s): E78.5 - Hyperlipidemia, unspecified (3) HTN (hypertension) Hypertension type: essential hypertension Qualified Code(s): I10 - Essential (primary) hypertension (4) Acute pancreatitis Acute pancreatitis complication: unspecified Pancreatitis type: unspecified pancreatitis type Qualified Code(s): K85.90 - Acute pancreatitis without necrosis or infection, unspecified
[2021-04-19] MEDS ORDERED: MoRPHine SULFATE 2 MG/ML CARP IV PRN (01:13)
[2021-04-19] MEDS ORDERED: PIPERACILL/TAZOBAC CONSULT ACTIVE PRN (01:13)
[2021-04-19] MEDS ORDERED: ALUMINUM/MAGNESIUM SUSP 30 ML UDC PO PRN (01:13)
[2021-04-19] MEDS ORDERED: ACETAMINOPHEN 325 MG TAB PO PRN (01:13)
[2021-04-19] MEDS ORDERED: ONDANSETRON INJ 2 MG/ML 2 ML VIAL IV PRN ×2 (01:13→16:18)
[2021-04-19] MEDS ORDERED: PIPERACILLIN/TAZOBACTAM 4.5 GM in DEXTROSE 5% 100 ML IV ONE (01:45)
[2021-04-19] MEDS: SODIUM CHLORIDE 0.9% 1000ML 1,000 ML IV SCH ×4 (02:35→15:26)
[2021-04-19 06:14] LABS: Basophils # (auto) 0.01 K/uL (0-0.2); Basophils % (auto) 0.1 %; Eosinophils # (auto) 0.04 K/uL (0-0.5); Eosinophils % (auto) 0.4 %; Hematocrit (blood only) 37.3 % (42-52); Hemoglobin 12.5 g/dL (14.0-18.0); Immature Granulocytes # (auto) 0.04 K/uL (0.00-0.02); Immature Granulocytes % (auto) 0.4 %; Lymphocytes # (auto) 1.65 K/uL (1.2-3.4); Lymphocytes % (auto) 17.2 %; Mean Corpuscular Hgb Conc 33.5 g/dL (32-36); Mean Corpuscular Volume 92.6 fL (80-100); Mean Platelet Volume 9.8 fL (7.4-10.4); Monocytes # (auto) 1.04 K/uL (0.11-0.59); Monocytes % (auto) 10.9 %; Neutrophils # (auto) 6.79 K/uL (1.4-6.5); Platelet Count 190 K/uL (130-400); RDW Coefficient of Variation 14.4 % (11.5-14.5); Red Blood Count 4.03 M/uL (4.7-6.1); White Blood Count 9.57 K/uL (4.8-10.8)
[2021-04-19 06:42] LABS: Albumin Level 2.8 gm/dl (3.4-5.0); BUN Creatinine Ratio 17.7 (10-20); Calcium 8.3 mg/dl (8.5-10.1); Creatinine Clr Calc Pharmacy 67.6 ml/min; Est GFR (African American) 67.5 ml/min; Est GFR (Non-African American) 58.2 ml/min; Potassium 3.6 mmol/L (3.5-5.1)
[2021-04-19 06:55] LABS: Albumin Globulin Ratio 0.7 (0.9-2); Bilirubin,Total 5.3 mg/dl (0.2-1); Globulin 3.8 gm/dl (2.5-4.0); Total Protein 6.6 gm/dl (6.4-8.2)
--- NOTE | 2021-04-19 08:01 | Magnetic Resonance Report ---
MR MRCP HISTORY: Mid abdominal pain. GB sludge vs stones, pancreatitis TECHNIQUE: MRCP of the abdomen was performed without contrast according to standard departmental prot ocol. COMPARISON STUDY: Abdomen and pelvis CT 04/18/2021. FINDINGS: The lung bases appear clear. The liver, spleen, adrenal glands unremarkable. The gallbladde r is contracted. Small stones/sludge seen within the gallbladder lumen. No definite gallbladder wall thickening. No retroperitoneal lymphadenopathy. Normal caliber abdominal aorta. Bilateral renal cysts with the largest on the left measuring 10 cm. No hydronephrosis. Suboptimal evaluation of the common bile duct due to the motion artifact. This seen on sagittal MRCP sequences there appears be slight i rregularity within the posterior limb of the mid common bile duct. This could represent small stones/ sludge. However, this does not result in common bile duct obstruction. The common bile duct is normal in caliber for age measuring 6.6 mm in diameter. Visualized main pancreatic duct is normal in course and caliber. There are few scattered tiny cystic foci within the pancreas with the largest measuring 4 mm. These favor small side branch intraductal papillary mucinous neoplasms. Mild edema surrounding the pancreas consistent with acute pancreatitis. IMPRESSION: 1. Small stones/sludge within the mid common bile duct without significant obstruction. 2. Small amount of sludge/stones within the contracted gallbladder 3. Acute pancreatitis again noted. ACT 112: Negative or not required by law. Electronically signed by: Johnny Chowdary M.D. 04/19/2021 7:59 AM
[2021-04-19] MEDS: PIPERACILLIN/TAZOBACTAM 4.5 GM in DEXTROSE 5% 100 ML IV SCH ×2 (08:22→15:45)
[2021-04-19] MEDS: PANTOprazole 40 MG TAB PO SCH (08:23)
[2021-04-19] MEDS: lisinopril 20 MG TAB PO SCH (08:23)
[2021-04-19] MEDS: POTASSIUM CHLORIDE 10 MEQ TABCR PO SCH ×2 (08:23→18:01)
[2021-04-19] MEDS ORDERED: FUROSEMIDE 40 MG TAB PO SCH (09:00)
[2021-04-19] MEDS ORDERED: dexAMETHasone 1 MG TAB PO SCH (09:00)
--- NOTE | 2021-04-19 10:30 | Communication Note ---
Date of Service: April 19, 2021 Patient with laboratory and imaging findings concerning for choledocholithiasis. Informed Dr. Paul that there is no hospital GI biliary coverage today and that the patient should be transferred to a tertiary center with EUS/ERCP capabilities.
--- NOTE | 2021-04-19 12:06 | Gastrointestinal Consultation ---
Date of Consultation April 19, 2021 Assessment & Plan (1) Acute pancreatitis: 70 year old male admitted w/ suspecte gallstone panc, imaging concerning for stones/sludge in CBD NPO ERCP today LR 200 ml/hr antietmics PRN analgesia PRN He denies AC He denies NSAIDs Continue ABX Supervising Physician Co-Signing Physician Notes Attg add: I interviewed and examined pt, reviewed chart and labs. Pt admit with abrupt onset of upper abdominal pain, n/v. + fever at home. On admit, labs c/w gallstone panc with bili of 4; WBC 14; creat 1.15. CT shows sludge in GB, no IHDD/EHDD, MRCP shows possible sludge in CBD. Overnight, bili lisa from 4.4 to 5.3, LFT's o.w improving; fall in WBC; creat lisa to 1.26. VS sig O2 sat low 90's RAwith normal CXR, BP stable, no fever. At present pt still with abd discomfort, passing flatus, passing large amts dark urine. Gallstone panc Obese Bili 4--> 5. D/w Dr. Guadarrama -- plan ERCP for biliary decompression. Recommend surgery consult for manan. History of Present Illness Reason for Consultation: arrange ERCP Attending Physician: Alex Paul, History of Present Illness 70 year old male w/ history of HTN, dyslipidemia, BPH others below admitted w/ pain, fevers, imaging concerning for stones/sludge within the mid common bile duct without significant obstruction. [facility] asked to arrange ERCP. Pt notes abd pain, nausea x 3 days. developed chills and fevers at home, PCP advised ED. Admitted w/ WBC 14, rising LFTS w/ tbili 5.3, ast 132, alt 418 and alkp 139, lipase 6000. CT concerning for acute panc, MR w/ sludge/stones in CBD Allergies Allergy/AdvReac Type Severity Reaction Status Date / Time No Known Allergies Allergy Unknown Verified 04/18/21 21:05 Home Medications Medication Instructions Recorded Confirmed Type furosemide 40 mg tablet 40 mg PO BID 05/21/20 04/18/21 History lisinopril 20 mg tablet 20 mg PO DAILY 05/21/20 04/18/21 History omeprazole 20 mg capsule,delayed 20 mg PO DAILY 05/21/20 04/18/21 History release potassium chloride 10 mEq 10 meq PO BID 05/21/20 04/18/21 History tablet,extended release simvastatin 80 mg tablet 80 mg PO HS 05/21/20 04/18/21 History tamsulosin 0.4 mg capsule 0.4 mg PO HS 05/21/20 04/18/21 History dexamethasone 2 mg tablet 2 mg PO DAILY 04/18/21 04/18/21 History Patient History Medical History HLD (hyperlipidemia) HTN (hypertension) No pertinent family history Surgical History No pertinent past surgical history Social History Smoking Status: Never smoker Second Hand Exposure: No; Do You Dip or Chew Tobacco: No; Tobacco Cessation Education Requested by Patient: No Hx Alcohol Use: No Hx Substance Use: No Preferred Language: Thai Communication Ability: Effective Routing Equipment Tender Required: No Beliefs That Will Affect Care: None Current Living Situation: Spouse Current Living Situation Comment: at home with , independent at home. Other Information That Helps Us Care for You: No Feels Safe at Home: Yes Safety Concerns: Feels Safe At This Time Assistive Devices: Denture - Upper, Denture - Lower and Glasses Review of Systems Review of Systems: All systems reviewed & are unremarkable except as noted in HPI & below Physical Exam Constitutional: WD/WN, vitals as above Neck: trachea midline, no thyromegaly Respiratory: normal respiratory effort, lungs clear to auscultation Cardiovascular: RRR, no murmur, no edema Gastrointestinal (Abdomen): Inspection/Auscultation: abdomen normal to inspection and normal bowel sounds Percussion/Palpation: + abdomen tender and abdomen soft; no guarding and abdomen not rigid Skin: no rashes, warm and dry Results & Data ([facility]) Vital Signs (Past 12 Hours) Vital Signs Temp Pulse Pulse Resp BP Pulse Ox Pulse Ox 04/19/21 11:51 37.2 C 89 19 155/88 H 92 04/19/21 06:53 36.7 C 80 16 166/70 H 94 04/19/21 01:13 36.3 C L 84 18 145/81 H 92 04/19/21 00:55 36.3 C L 84 18 145/81 H 92 92 04/19/21 00:51 85 Laboratory Results 04/19/21 04/19/21 04/19/21 Range/Units 05:26 05:26 05:26 WBC 9.57 (4.8-10.8) K/uL RBC 4.03 L (4.7-6.1) M/uL Hgb 12.5 L (14.0-18.0) g/dL Hct 37.3 L (42-52) % MCV 92.6 (80-100) fL MCH 31.0 (25-34) pg MCHC 33.5 (32-36) g/dL RDW Std Deviation 49.0 H (36.4-46.3) fL RDW Coeff of Keenan 14.4 (11.5-14.5) % Plt Count 190 (130-400) K/uL MPV 9.8 (7.4-10.4) fL Immature Gran % (Auto) 0.4 % Neut % (Auto) 71.0 % Lymph % (Auto) 17.2 % Menard % (Auto) 10.9 % Eos % (Auto) 0.4 % Baso % (Auto) 0.1 % Neut # (Auto) 6.79 H (1.4-6.5) K/uL Lymph # (Auto) 1.65 (1.2-3.4) K/uL Menard # (Auto) 1.04 H (0.11-0.59) K/uL Eos # (Auto) 0.04 (0-0.5) K/uL Baso # (Auto) 0.01 (0-0.2) K/uL Immature Gran # (Auto) 0.04 H (0.00-0.02) K/uL Sodium 141 (136-145) mmol/L Potassium 3.6 (3.5-5.1) mmol/L Chloride 106 (98-107) mmol/L Carbon Dioxide 29 (21-32) mmol/L Anion Gap 6.0 (3-11) BUN 22 H (7-18) mg/dl Creatinine 1.26 (0.6-1.4) mg/dl Est Cr Clr Drug Dosing 67.6 ml/min Est GFR ( Amer) 67.5 ml/min Est GFR (Non-Af Amer) 58.2 ml/min BUN/Creatinine Ratio 17.7 (10-20) Glucose 109 H (70-99) mg/dl Calcium 8.3 L (8.5-10.1) mg/dl Total Bilirubin 5.3 H (0.2-1) mg/dl AST 132 H (15-37) U/L ALT 418 H (12-78) U/L Alkaline Phosphatase 139 H (45-117) U/L Total Protein 6.6 (6.4-8.2) gm/dl Albumin 2.8 L (3.4-5.0) gm/dl Globulin 3.8 (2.5-4.0) gm/dl Albumin/Globulin Ratio 0.7 L (0.9-2) Lipase 5956 H (73-393) U/L Urine Color Urine Appearance (Clear) Urine pH (4.5-7.5) Ur Specific [place] (1.000-1.030) Urine Protein (Negative) Urine Glucose (UA) (Negative) Urine Ketones (Negative) Urine Blood (Negative) Urine Nitrite (Negative) Urine Bilirubin (Negative) Urine Urobilinogen (Negative) Ur Leukocyte Esterase (Negative) Urine WBC (Auto) (0-5) /hpf Urine RBC (Auto) (0-4) /hpf U Hyaline Cast (Auto) (0-5) /lpf U Epithel Cells (Auto) (0-5) /lpf Urine Bacteria (Auto) (Negative) COVID-19 Eval Order SARS-CoV-2 (PCR) (Negative) Hepatitis C Ab Screen Neg (Neg) 04/18/21 04/18/21 04/18/21 Range/Units 21:13 21:13 16:10 WBC (4.8-10.8) K/uL RBC (4.7-6.1) M/uL Hgb (14.0-18.0) g/dL Hct (42-52) % MCV (80-100) fL MCH (25-34) pg MCHC (32-36) g/dL RDW Std Deviation (36.4-46.3) fL RDW Coeff of Keenan (11.5-14.5) % Plt Count (130-400) K/uL MPV (7.4-10.4) fL Immature Gran % (Auto) % Neut % (Auto) % Lymph % (Auto) % Menard % (Auto) % Eos % (Auto) % Baso % (Auto) % Neut # (Auto) (1.4-6.5) K/uL Lymph # (Auto) (1.2-3.4) K/uL [place]ard # (Auto) (0.11-0.59) K/uL Eos # (Auto) (0-0.5) K/uL Baso # (Auto) (0-0.2) K/uL Immature Gran # (Auto) (0.00-0.02) K/uL Sodium 138 (136-145) mmol/L Potassium 3.9 (3.5-5.1) mmol/L Chloride 102 (98-107) mmol/L Carbon Dioxide 28 (21-32) mmol/L Anion Gap 8.0 (3-11) BUN 19 H (7-18) mg/dl Creatinine 1.15 (0.6-1.4) mg/dl Est Cr Clr Drug Dosing 73.3 ml/min Est GFR ( Amer) 75.4 ml/min Est GFR (Non-Af Amer) 65.0 ml/min BUN/Creatinine Ratio 16.3 (10-20) Glucose 153 H (70-99) mg/dl Calcium 9.4 (8.5-10.1) mg/dl Total Bilirubin 4.4 H (0.2-1) mg/dl AST 256 H (15-37) U/L ALT 570 H (12-78) U/L Alkaline Phosphatase 161 H (45-117) U/L Total Protein 7.6 (6.4-8.2) gm/dl Albumin 3.4 (3.4-5.0) gm/dl Globulin 4.2 H (2.5-4.0) gm/dl Albumin/Globulin Ratio 0.8 L (0.9-2) Lipase 44008 H (73-393) U/L Urine Color Urine Appearance (Clear) Urine pH (4.5-7.5) Ur Specific [place] (1.000-1.030) Urine Protein (Negative) Urine Glucose (UA) (Negative) Urine Ketones (Negative) Urine Blood (Negative) Urine Nitrite (Negative) Urine Bilirubin (Negative) Urine Urobilinogen (Negative) Ur Leukocyte Esterase (Negative) Urine WBC (Auto) (0-5) /hpf Urine RBC (Auto) (0-4) /hpf U Hyaline Cast (Auto) (0-5) /lpf U Epithel Cells (Auto) (0-5) /lpf Urine Bacteria (Auto) (Negative) COVID-19 Eval Order Covid19 at [facility] SARS-CoV-2 (PCR) NEGATIVE (Negative) Hepatitis C Ab Screen (Neg) 04/18/21 04/18/21 Range/Units 16:10 15:54 WBC 14.11 H (4.8-10.8) K/uL RBC 4.50 L (4.7-6.1) M/uL Hgb 14.1 (14.0-18.0) g/dL Hct 41.7 L (42-52) % MCV 92.7 (80-100) fL MCH 31.3 (25-34) pg MCHC 33.8 (32-36) g/dL RDW Std Deviation 46.8 H (36.4-46.3) fL RDW Coeff of Keenan 13.9 (11.5-14.5) % Plt Count 213 (130-400) K/uL MPV 9.8 (7.4-10.4) fL Immature Gran % (Auto) 0.4 % Neut % (Auto) 82.6 % Lymph % (Auto) 7.5 % Menard % (Auto) 9.4 % Eos % (Auto) 0.0 % Baso % (Auto) 0.1 % Neut # (Auto) 11.67 H (1.4-6.5) K/uL Lymph # (Auto) 1.06 L (1.2-3.4) K/uL [place]ard # (Auto) 1.32 H (0.11-0.59) K/uL Eos # (Auto) 0.00 (0-0.5) K/uL Baso # (Auto) 0.01 (0-0.2) K/uL Immature Gran # (Auto) 0.05 H (0.00-0.02) K/uL Sodium (136-145) mmol/L Potassium (3.5-5.1) mmol/L Chloride (98-107) mmol/L Carbon Dioxide (21-32) mmol/L Anion Gap (3-11) BUN (7-18) mg/dl Creatinine (0.6-1.4) mg/dl Est Cr Clr Drug Dosing ml/min Est GFR ( Amer) ml/min Est GFR (Non-Af Amer) ml/min BUN/Creatinine Ratio (10-20) Glucose (70-99) mg/dl Calcium (8.5-10.1) mg/dl Total Bilirubin (0.2-1) mg/dl AST (15-37) U/L ALT (12-78) U/L Alkaline Phosphatase (45-117) U/L Total Protein (6.4-8.2) gm/dl Albumin (3.4-5.0) gm/dl Globulin (2.5-4.0) gm/dl Albumin/Globulin Ratio (0.9-2) Lipase (73-393) U/L Urine Color Dark Yellow Urine Appearance Clear (Clear) Urine pH 6.5 (4.5-7.5) Ur Specific [place] 1.013 (1.000-1.030) Urine Protein Trace H (Negative) Urine Glucose (UA) Negative (Negative) Urine Ketones Negative (Negative) Urine Blood Negative (Negative) Urine Nitrite Negative (Negative) Urine Bilirubin 2+ H (Negative) Urine Urobilinogen Negative (Negative) Ur Leukocyte Esterase Negative (Negative) Urine WBC (Auto) 1-5 (0-5) /hpf Urine RBC (Auto) 0-4 (0-4) /hpf U Hyaline Cast (Auto) 0 (0-5) /lpf U Epithel Cells (Auto) 0-5 (0-5) /lpf Urine Bacteria (Auto) Negative (Negative) COVID-19 Eval Order SARS-CoV-2 (PCR) (Negative) Hepatitis C Ab Screen (Neg) (1) Acute pancreatitis Acute pancreatitis complication: unspecified Pancreatitis type: unspecified pancreatitis type Qualified Code(s): K85.90 - Acute pancreatitis without necrosis or infection, unspecified
--- NOTE | 2021-04-19 12:53 | Anesthesiology Consultation ---
Date of Service April 19, 2021 Assessment & Plan Chart Review Chart Review: entry level account manager initiated (pending 12 lead EKG) History Surgery Operation Date: 04/19/21 10:15 Proposed Procedures p Endoscopic Retrograde Cholangiopancreatography - Steven Guadarrama DO Height/Weight Height: 5 ft 5 in Weight: 120.7 kg Allergies Allergy/AdvReac Type Severity Reaction Status Date / Time No Known Allergies Allergy Unknown Verified 04/18/21 21:05 Medications Home Medications Medication Instructions Recorded Confirmed Last Taken furosemide 40 mg tablet 40 mg PO BID 05/21/20 04/18/21 04/18/21 am lisinopril 20 mg tablet 20 mg PO DAILY 05/21/20 04/18/21 04/18/21 omeprazole 20 mg capsule,delayed 20 mg PO DAILY 05/21/20 04/18/21 04/18/21 release potassium chloride 10 mEq 10 meq PO BID 05/21/20 04/18/21 04/18/21 tablet,extended release am simvastatin 80 mg tablet 80 mg PO HS 05/21/20 04/18/21 04/17/21 tamsulosin 0.4 mg capsule 0.4 mg PO HS 05/21/20 04/18/21 04/17/21 dexamethasone 2 mg tablet 2 mg PO DAILY 04/18/21 04/18/21 04/18/21 Active Medications Generic Name Dose Route Start Last Admin Trade Name Jonnieq PRN Reason Stop Dose Admin Dexamethasone 2 mg 04/19/21 09:00 04/19/21 08:23 Dexamethasone 1 Mg Tab PO 05/19/21 08:59 2 mg DAILY SHELTON Administration Furosemide 40 mg 04/19/21 09:00 04/19/21 08:23 Furosemide 40 Mg Tab PO 05/19/21 08:59 40 mg [id number] SHELTON Administration Sodium Chloride 1,000 mls @ 250 mls/hr 04/19/21 01:13 04/19/21 10:57 Nss 1000ml IV 05/19/21 01:12 250 mls/hr .Q4H SHELTON Administration Piperacillin Sod/Tazobactam 120 mls @ 30 mls/hr 04/19/21 07:00 04/19/21 12:23 Sod 4.5 gm/ Dextrose IV 04/29/21 06:59 Infused Q8H SHELTON Infusion Protocol Lisinopril 20 mg 04/19/21 09:00 04/19/21 08:23 Lisinopril 20 Mg Tab PO 05/19/21 08:59 20 mg DAILY SHELTON Administration Pantoprazole Sodium 40 mg 04/19/21 09:00 04/19/21 08:23 Pantoprazole 40 Mg Tab PO 05/19/21 08:59 40 mg DAILY SHELTON Administration Protocol Potassium Chloride 10 meq 04/19/21 09:00 04/19/21 08:23 Potassium Chloride 10 Meq Tabcr PO 05/19/21 08:59 10 meq BID17 SHELTON Administration Past Medical History Medical History HLD (hyperlipidemia) HTN (hypertension) No pertinent family history Past Surgical History Surgical History No pertinent past surgical history Social History Smoking Status: Never smoker Do You Dip or Chew Tobacco: No Hx Alcohol Use: No Hx Substance Use: No Physical Exam Vital Signs Last Vital Signs Temp 99.0 F 04/19/21 11:51 Pulse 89 04/19/21 11:51 Resp 19 04/19/21 11:51 BP 155/88 H 04/19/21 11:51 Pulse Ox 92 04/19/21 11:51 Testing Laboratory Results 04/19/21 05:26 04/19/21 05:26 Urine Color Dark Yellow 04/18/21 15:54 Urine Appearance Clear (Clear) 04/18/21 15:54 Urine pH 6.5 (4.5-7.5) 04/18/21 15:54 Ur Specific [place] 1.013 (1.000-1.030) 04/18/21 15:54 Urine Protein Trace (Negative) H 04/18/21 15:54 Urine Glucose (UA) Negative (Negative) 04/18/21 15:54 Urine Ketones Negative (Negative) 04/18/21 15:54 Urine Nitrite Negative (Negative) 04/18/21 15:54 Ur Leukocyte Esterase Negative (Negative) 04/18/21 15:54 Urine WBC (Auto) 1-5 /hpf (0-5) 04/18/21 15:54 Urine RBC (Auto) 0-4 /hpf (0-4) 04/18/21 15:54 U Hyaline Cast (Auto) 0 /lpf (0-5) 04/18/21 15:54 U Epithel Cells (Auto) 0-5 /lpf (0-5) 04/18/21 15:54 Urine Bacteria (Auto) Negative (Negative) 04/18/21 15:54 Laboratory Tests 04/18/21 21:13 SARS-CoV-2 (PCR) NEGATIVE Chest X-Ray Date: 04/18/21 Findings: + NAD
[2021-04-19 14:43] LABS: INR 1.1 (0.9-1.1); Prothrombin Time 10.7 Seconds (9.0-12.0)
[2021-04-19] MEDS ORDERED: INDOMETHACIN 50 MG SUPP PR ONE ×2 (15:09)
--- NOTE | 2021-04-19 15:09 | History & Physical Bridge Note ---
Date of Service April 19, 2021 History & Physical Bridge Note I have examined the patient, reviewed the History & Physical and in the interval since the performance of the History & Physical I have noted the following changes of clinical significance: no changes noted. We have disucssed the risks to include bleeding, infection, perforation, pancreatitis, pain, failed biliary cannulation and need for f/u studies. MRCP Results: FINDINGS: The lung bases appear clear. The liver, spleen, adrenal glands unrem arkable. The gallbladder is contracted. Small stones/sludge seen within the gallbladder lumen. No definite gallbladder wall thickening. No retroperitoneal lymphadenopathy. Normal caliber abdominal aorta. Bilateral renal cysts with the largest on the left measuring 10 cm. No hydronephrosis. Suboptimal evaluation of the common bile duct due to the motion artifact. This seen on sagittal MRCP sequences there appears be slight irregularity within the posterior limb of the mid common bile duct. This could represent small stones/sludge. However, this does not result in common bile duct obstruction. The common bile duct is normal in caliber for age measuring 6.6 mm in diameter. Visualized main pancreatic duct is normal in course and caliber. There are few scattered tiny cystic foci within the pancreas with the largest measuring 4 mm. These favor small side branch intraductal papillary mucinous neoplasms. Mild edema surrounding the pancreas consistent with acute pancreatitis. IMPRESSION: 1. Small stones/sludge within the mid common bile duct without significant obstruction. 2. Small amount of sludge/stones within the contracted gallbladder 3. Acute pancreatitis again noted.
[2021-04-19] MEDS ORDERED: fentaNYL citrate 100 MCG/2 ML VIAL ONE (15:33)
[2021-04-19] MEDS ORDERED: ONDANSETRON INJ 2 MG/ML 2 ML VIAL ONE (15:49)
[2021-04-19] MEDS ORDERED: PROPOFOL IV EMULSION 10 MG/ML 20 ML VIAL IV ONE (15:49)
[2021-04-19] MEDS ORDERED: SUCCINYLCHOLINE CHLORIDE 20 MG/ML 10 ML VIAL IV ONE (15:49)
--- NOTE | 2021-04-19 16:01 | Post Operative Brief Note ---
Immediate Post Op Note v1 Date of Surgery April 19, 2021 Pre & Post Diagnosis Operation Date: 04/19/21 10:15 Pre-Op Diagnosis: acute gallstone pancreatitis Post-Op Diagnosis: choledocolithiasis I identified the patient and participated in the time-out.: Yes Procedure Operation Date: 04/19/21 10:15 <No data on this case meets the specified criteria> Surgeon Steven Guadarrama, Oil Agent none Estimated Blood Loss 0 Findings Consistent with Post-Op Diagnosis
--- NOTE | 2021-04-19 16:04 | Communication Note ---
Date of Service: April 19, 2021 The patient underwent ERCP this afternoon. He was found to have evidence of stones within the common bile duct. Would suggest that the patient be continued on antibiotics for total of 10 days. In addition the patient would benefit from a general surgery consultation. I would also recommend holding the patient's outpatient diuretics as he has been admitted with pancreatitis and often these patients do require intravenous fluids. Recommendations Please hold diuretics if possible Continue IV hydration overnight General surgery consultation Continue antibiotic coverage for a total of 10 days Avoid anticoagulation and nonsteroidals for 5 days Repeat ERCP for stent removal in 6 to 8 weeks Please call with any questions or concerns over the weekend
--- NOTE | 2021-04-19 16:10 | GI REPORT ---
Patient Name: Milton Martinez Procedure Date: 04/19/2021 3:08 PM Date of : 1950 Admit Type: Inpatient Age: 70 Gender: Male Attending MD: Steven Guadarrama DO Procedure: ERCP Providers: Steven Guadarrama DO Referring MD: Roge Hernandez Indications: Abdominal pain of suspected biliary origin, Abnormal MRCP, Jaundice, Elevated liver enzymes Medicines: General Anesthesia Complications: No immediate complications. Estimated blood loss: Minimal. Estimated Blood Loss: Estimated blood loss was minimal. Procedure: Pre-Anesthesia Assessment: - Prior to the procedure, a History and Physical was performed, and patient medications, allergies and sensitivities were reviewed. The patient's tolerance of previous anesthesia was reviewed. - The risks and benefits of the procedure and the sedation options and risks were discussed with the patient. All questions were answered and informed consent was obtained. - Patient identification and proposed procedure were verified prior to the procedure by the physician, the nurse and the bail bonding agent. The procedure was verified in the procedure room. - Pre-procedure physical examination revealed no contraindications to sedation. - ASA Grade Assessment: IV - A patient with severe systemic disease that is a constant threat to life. - After reviewing the risks and benefits, the patient was deemed in satisfactory condition to undergo the procedure. - The anesthesia plan was to use general anesthesia. - Immediately prior to administration of medications, the patient was re-assessed for adequacy to receive sedatives. - The heart rate, respiratory rate, oxygen saturations, blood pressure, adequacy of pulmonary ventilation, and response to care were monitored throughout the procedure. - The physical status of the patient was re-assessed after the procedure. After obtaining informed consent, the scope was passed under direct vision. Throughout the procedure, the patient's blood pressure, pulse, and oxygen saturations were monitored continuously. The Scope was introduced through the mouth, and advanced to the duodenum and used to inject contrast into the bile duct. The ERCP was accomplished without difficulty. The patient tolerated the procedure well. Findings: The awning hanger helper film was normal. The esophagus was successfully intubated under direct vision without detailed examination of the pharynx, larynx, and associated structures, and upper GI tract. The upper GI tract was grossly normal. The major papilla was on the rim of a diverticulum. The major papilla was edematous. The ventral pancreatic duct was inadvertently cannulated with the short-nosed traction sphincterotome and guidewire without any complications. The wire was left in place to aid in biliary cannulation with a double wire technique and later place a prophylactic pancreatic stent. The bile duct was then deeply cannulated with the short-nosed traction sphincterotome and guidewire. Contrast was injected. I personally interpreted the bile duct images. Contrast extended to the hepatic ducts. The biliary orifice was stenotic. This appeared benign. The lower third of the main bile duct contained filling defect(s) thought to be a stone. A 7 mm biliary sphincterotomy was made with a monofilament Fusion OMNI sphincterotome using ERBE electrocautery. There was no post-sphincterotomy bleeding. To discover objects, the biliary tree was swept with an 11.5 mm balloon starting at the bifurcation. One stone was removed. No stones remained. One 10 Fr by 7 cm biliary stent with a single external flap and a single internal flap was placed 7 cm into the common bile duct. Bile flowed through the stent. The stent was in good position. One 5 Fr by 7 cm pancreatic stent with a full external pigtail and no internal flaps was placed 7 cm into the ventral pancreatic duct. Clear fluid flowed through the stent. The stent was in good position. Indomethacin 100 mg was given via suppository to decrease the risk of post-ERCP pancreatitis (PEP). The endoscope was withdrawn from the patient. Impression: - The major papilla was on the rim of a diverticulum. - The major papilla appeared edematous. - Biliary papillary stenosis, benign. - Choledocholithiasis was found. Complete removal was accomplished by biliary sphincterotomy and balloon extraction. - One biliary stent was placed into the common bile duct. - One prophylacitic pancreatic stent was placed into the ventral pancreatic duct. - Indomethacin given to decrease risk of post-ERCP pancreatitis. Recommendation: - Avoid aspirin and nonsteroidal anti-inflammatory medicines for 5 days. - Clear liquid diet. - Use broad spectrum antibiotics for 10 days. - Refer to a surgeon for cholecystectomy. - Would recommend continuing IV hydration overnight, consider discontinuing diuretics given admission for gallstone pancreatitis - Repeat ERCP in 6 weeks to remove stent. Steven Guadarrama D.O. Steven Guadarrama, 04/19/2021 4:10:22 PM This report has been signed electronically. Note Initiated On: 04/19/2021 3:08 PM Number of Addenda: 0 I attest to the content of the Intraoperative Record and orders documented therein, exceptions below {[id number]}
[2021-04-19] MEDS ORDERED: LABETALOL HCL IV 5 MG/ML 20ML IV PRN (16:18)
[2021-04-19] MEDS ORDERED: FLUMAZENIL 0.1 MG/1 ML 10 ML VIAL IV PRN (16:18)
[2021-04-19] MEDS ORDERED: NALOXONE HCL 0.4 MG/1 ML VIAL/CARP IV PRN (16:18)
[2021-04-19] MEDS ORDERED: ATROPINE SULFATE 0.1 MG/ML 10ML SYR IV PRN (16:18)
[2021-04-19] MEDS ORDERED: PROMETHAZINE HCL 12.5 MG in SODIUM CHLORIDE 0.9% 50 ML IV PRN (16:18)
[2021-04-19] MEDS ORDERED: fentaNYL citrate 100 MCG/2 ML VIAL IV PRN (16:18)
[2021-04-19] MEDS ORDERED: ePHEDrine sulfate 50 MG/ML AMP IV PRN (16:18)
--- NOTE | 2021-04-19 16:52 | Hospitalist Progress Note ---
Date of Service April 19, 2021 Assessment & Plan (1) Acute pancreatitis: Plan: Milton Martinez is a 70-year-old male with past medical history of BPH, hyperlipidemia, hypertension who comes in due to abdominal pain for [address] showing pancreatitis, common dile duct debris, and gallstones. Cholidocholithiasis s/p ERCP -GI consulted 04/19 Dr. Guadarrama performed ERCP. Complete removal of stone with one biliary stent placement, one prophylactic pancreatic stent placed, recommend repeat ERCP 6 wks for removal. Recommends avoid ASA NSAIDS 5 days, clear liquid diet, broad spectrum abx 10 days, surgery consult for cholecystectomy, IVF hydration overnight hold lasix -Surgery consulted for cholelithiasis -Changed abx to amp/sulbactam -LR 200ml/hr, lasix on hold, assess fluid status tomorrow -clear liquid diet ordered, advance as tolerated Acute Pancreatitis MRCP statrad read: Under distended contracted gallbladder with stones/debris. Suspected debris in the common bile duct as well. Pancreatitis. Small focal dilatation related to the pancreatic duct versus small high signal foci in the pancreas. Mild fatty liver. Renal cyst. NS 250 cc/h in ED Lipase 55331 --> 5956 downtrending Admit to med telemetry Consult GI --> Dr. Guadarrama to perform ERCP N.p.o. d/c'd post ERCP Bile Duct Debris MRCP as above T bili 4.4, AST 256, ALT 570, alk phos 161 Initiate Zosyn for concerns of common bile duct obstruction --> d/c'd post ERCP GI consult as above for consideration of ERCP N.p.o. d/c'd post ERCP Hypertension/Hyperlipidemia Continue home lisinopril, simvastatin, lasix on hold BPH Continue home tamsulosin GERD Continue PPI per hospital formulary DVT prophylaxis: Hold chemoprophylaxis in case of procedure Dispo: Admit to med telemetry FEN GI: clear liquid diet, LR 200ml/hr CODE STATUS: Conditional code (2) BPH (benign prostatic hyperplasia): (3) HLD (hyperlipidemia): (4) HTN (hypertension): (5) Bile duct abnormality: (6) Cholelithiases: (7) Choledocholithiasis: Admission and Anticipated Discharge Date Admission Date: April 18, 2021 Supervising Physician Co-Signing Physician Notes I personally examined the patient and verified all ledesma points of history and exam, discussed case, and agree with decision making with Dr Capellan. At rest no significant abdominal pain. Has not really done much or eaten anything. Vitals noted, in general he is awake and alert pleasant no distress. Laying in bed fairly still. Has epigastric tenderness without guarding or rebound, no right upper quadrant tenderness. Gallstone pancreatitiswith the evidence of stones in the biliary treeinitially no biliary digester operator was on today, and we attempted to try to transfer for the interventions patient would needwhen this was proven to be futile, Dr. Guadarrama graciously stepped in and was able to perform the procedure requiredinput greatly appreciated. Continue fluids supportive care pain control. Otherwise as above. Subjective 70yo Male PMH HTN, HLD, GERD, BPH here for abd pain found to be pancreatitis. Patient states it started thursday, by he had fever chills told him to call PCP, who sent him to ER. Patient states his pain is constant unchanged by position. Denies smoking, alcohol, drug use, takes his medication regularly is not on dexamethasone. Patient seen at bedside comfortable states fever chills gone very slight abd discomfort remaining. Patient denies snoring, difficulty breathing. Review of Systems Review of Systems: Positive abd pain Negative fever chills Negative headache dizziness Negative chest pain palpitations SOB Negative nausea vomitting diarrhea constipation Negative numbness tingling rash swelling Physical Exam Physical Exam: General: Well appearing, age appropriate Heart: RRR, +S1 S2, no murmurs/gallops/rubs Lungs: low respiratory effort Abd: soft, mild tenderness RUQ on palpation, +BS Extremities: no swelling, no rashes HEENT: no scleral icterus Results & Data Results & Data ([facility]) Vital Signs (Past 12 Hours) Vital Signs Temp Pulse Pulse Pulse Resp BP Pulse Ox 04/19/21 16:40 89 18 126/70 94 04/19/21 16:30 93 H 18 130/80 95 04/19/21 16:23 36.4 C L 96 H 19 130/91 96 04/19/21 14:55 37.5 C 89 18 182/87 H 92 04/19/21 11:51 37.2 C 89 19 155/88 H 92 04/19/21 08:00 76 04/19/21 06:53 36.7 C 80 16 166/70 H 94 Laboratory Results 04/19/21 04/19/21 04/19/21 Range/Units 14:18 05:26 05:26 WBC (4.8-10.8) K/uL RBC (4.7-6.1) M/uL Hgb (14.0-18.0) g/dL Hct (42-52) % MCV (80-100) fL MCH (25-34) pg MCHC (32-36) g/dL RDW Std Deviation (36.4-46.3) fL RDW Coeff of Keenan (11.5-14.5) % Plt Count (130-400) K/uL MPV (7.4-10.4) fL Immature Gran % (Auto) % Neut % (Auto) % Lymph % (Auto) % Morton % (Auto) % Eos % (Auto) % Baso % (Auto) % Neut # (Auto) (1.4-6.5) K/uL Lymph # (Auto) (1.2-3.4) K/uL Morton # (Auto) (0.11-0.59) K/uL Eos # (Auto) (0-0.5) K/uL Baso # (Auto) (0-0.2) K/uL Immature Gran # (Auto) (0.00-0.02) K/uL PT 10.7 (9.0-12.0) Seconds INR 1.1 (0.9-1.1) Sodium 141 (136-145) mmol/L Potassium 3.6 (3.5-5.1) mmol/L Chloride 106 (98-107) mmol/L Carbon Dioxide 29 (21-32) mmol/L Anion Gap 6.0 (3-11) BUN 22 H (7-18) mg/dl Creatinine 1.26 (0.6-1.4) mg/dl Est Cr Clr Drug Dosing 67.6 ml/min Est GFR ( Amer) 67.5 ml/min Est GFR (Non-Af Amer) 58.2 ml/min BUN/Creatinine Ratio 17.7 (10-20) Glucose 109 H (70-99) mg/dl Calcium 8.3 L (8.5-10.1) mg/dl Total Bilirubin 5.3 H (0.2-1) mg/dl AST 132 H (15-37) U/L ALT 418 H (12-78) U/L Alkaline Phosphatase 139 H (45-117) U/L Total Protein 6.6 (6.4-8.2) gm/dl Albumin 2.8 L (3.4-5.0) gm/dl Globulin 3.8 (2.5-4.0) gm/dl Albumin/Globulin Ratio 0.7 L (0.9-2) Lipase 5956 H (73-393) U/L COVID-19 Eval Order SARS-CoV-2 (PCR) (Negative) Hepatitis C Ab Screen Neg (Neg) 04/19/21 04/18/21 04/18/21 Range/Units 05:26 21:13 21:13 WBC 9.57 (4.8-10.8) K/uL RBC 4.03 L (4.7-6.1) M/uL Hgb 12.5 L (14.0-18.0) g/dL Hct 37.3 L (42-52) % MCV 92.6 (80-100) fL MCH 31.0 (25-34) pg MCHC 33.5 (32-36) g/dL RDW Std Deviation 49.0 H (36.4-46.3) fL RDW Coeff of Keenan 14.4 (11.5-14.5) % Plt Count 190 (130-400) K/uL MPV 9.8 (7.4-10.4) fL Immature Gran % (Auto) 0.4 % Neut % (Auto) 71.0 % Lymph % (Auto) 17.2 % Morton % (Auto) 10.9 % Eos % (Auto) 0.4 % Baso % (Auto) 0.1 % Neut # (Auto) 6.79 H (1.4-6.5) K/uL Lymph # (Auto) 1.65 (1.2-3.4) K/uL Morton # (Auto) 1.04 H (0.11-0.59) K/uL Eos # (Auto) 0.04 (0-0.5) K/uL Baso # (Auto) 0.01 (0-0.2) K/uL Immature Gran # (Auto) 0.04 H (0.00-0.02) K/uL PT (9.0-12.0) Seconds INR (0.9-1.1) Sodium (136-145) mmol/L Potassium (3.5-5.1) mmol/L Chloride (98-107) mmol/L Carbon Dioxide (21-32) mmol/L Anion Gap (3-11) BUN (7-18) mg/dl Creatinine (0.6-1.4) mg/dl Est Cr Clr Drug Dosing ml/min Est GFR ( Amer) ml/min Est GFR (Non-Af Amer) ml/min BUN/Creatinine Ratio (10-20) Glucose (70-99) mg/dl Calcium (8.5-10.1) mg/dl Total Bilirubin (0.2-1) mg/dl AST (15-37) U/L ALT (12-78) U/L Alkaline Phosphatase (45-117) U/L Total Protein (6.4-8.2) gm/dl Albumin (3.4-5.0) gm/dl Globulin (2.5-4.0) gm/dl Albumin/Globulin Ratio (0.9-2) Lipase (73-393) U/L COVID-19 Eval Order Covid19 at [facility] SARS-CoV-2 (PCR) NEGATIVE (Negative) Hepatitis C Ab Screen (Neg) Diagnostic Findings Impressions Abdomen/Pelvis CT 04/18/21 16:11 CT abd pelvis IV con only CLINICAL INDICATION: MN ^LABS A10 ^generalized abd pain. TECHNIQUE: Helical axial images of the abdomen and pelvis were obtained and displayed at 5 and 1 mm intervals. Automated dose lowering techniques and/or adjustment according to patient size were utilized for this exam. This exam was performed with intravenous contrast. COMPARISON: Comparison is made to CTA chest 05/21/2020 FINDINGS: Lower chest: Bibasilar atelectasis versus scarring is seen. Liver: Unremarkable. No focal lesions are seen. Gallbladder and biliary tree: Layering radiodense material is seen in the dependent portion of the gallbladder which may represent sludge versus stones. No intra- or extrahepatic biliary ductal dilation. Pancreas: Peripancreatic fat stranding is seen. The pancreatic tail is minimally enlarged compared to the prior exam. Spleen: Calcifications are noted in the spleen compatible with prior granulomatous disease. Adrenals: Unremarkable. Kidneys and ureters: Multiple cysts are seen in the bilateral kidneys, largest measuring 11 cm on the left and 4 cm on the right. Bladder: Unremarkable. Reproductive organs: Prostatic calcifications are seen which may represent prior hemorrhage or granulomatous disease. Prostatomegaly is seen. Bowel: Diverticulosis is seen without evidence of diverticulitis. Fat stranding is seen about the duodenum which may be reactive. Lymph nodes Retroperitoneal: Unremarkable. Mesenteric: Unremarkable. Pelvic: Unremarkable. Peritoneum: Normal Vessels: Atherosclerotic calcifications are seen. Abdominal wall: A tiny umbilical helical hernia is seen. There are bilateral fat-containing inguinal hernias. Bones: Degenerative changes in the visualized spine. IMPRESSION: Fat stranding is seen about the pancreas compatible with pancreatitis. There is mild prominence of the tail of the pancreas which may represent pancreatic e marybeth. No peripancreatic abscess is noted. ACT 112: Negative or not required by law. Electronically signed by: Hero Echols M.D. 04/18/2021 5:18 PM Chest X-Ray 04/18/21 21:06 XR chest 1V portable INDICATION: MN ^hypoxia. TECHNIQUE: Single frontal radiograph of the chest was obtained. Comparison: Comparison is made to chest one view 05/21/2020 FINDINGS: Exam is limited by underpenetration. Stable cardiomegaly is seen. Interval resolution of previously noted bilateral airspace opacities. The lungs are essentially clear. No evidence of pleural effusion or pneumothorax. IMPRESSION: No acute chest disease. ACT 112: Negative or not required by law. Electronically signed by: Hero Echols M.D. 04/18/2021 9:14 PM Cholangiopancreatography MRI 04/18/21 21:20 MR MRCP HISTORY: Mid abdominal pain. GB sludge vs stones, pancreatitis TECHNIQUE: MRCP of the abdomen was performed without contrast according to standard departmental protocol. COMPARISON STUDY: Abdomen and pelvis CT 04/18/2021. FINDINGS: The lung bases appear clear. The liver, spleen, adrenal glands unremarkable. The gallbladder is contracted. Small stones/sludge seen within the gallbladder lumen. No definite gallbladder wall thickening. No retroperitoneal lymphadenopathy. Normal caliber abdominal aorta. Bilateral renal cysts with the largest on the left measuring 10 cm. No hydronephrosis. Suboptimal evaluation of the common bile duct due to the motion artifact. This seen on sagittal MRCP sequences there appears be slight irregularity within the posterior limb of the mid common bile duct. This could represent small stones/sludge. However, this does not result in common bile duct obstruction. The common bile duct is normal in caliber for age measuring 6.6 mm in diameter. Visualized main pancreatic duct is normal in course and caliber. There are few scattered tiny cystic foci within the pancreas with the largest measuring 4 mm. These favor small side branch intraductal papillary mucinous neoplasms. Mild edema surrounding the pancreas consistent with acute pancreatitis. IMPRESSION: 1. Small stones/sludge within the mid common bile duct without significant obstruction. 2. Small amount of sludge/stones within the contracted gallbladder 3. Acute pancreatitis again noted. ACT 112: Negative or not required by law. Electronically signed by: Johnny Chowdary M.D. 04/19/2021 7:59 AM Medications Administered Current Inpatient Medications Acetaminophen (Acetaminophen 325 Mg Tab) 650 mg PO Q4H PRN PRN Reason: Pain or Fever Stop: 05/19/21 01:12 Al Hydrox/Mg Hydrox/Simethicone (Aluminum/Magnesium Susp 30 Ml Udc) 15 ml PO Q4H PRN PRN Reason: Dyspepsia Stop: 05/19/21 01:12 Atropine Sulfate (Atropine Sulfate 0.1 Mg/Ml 10ml Syr) 0.5 mg IV Q1M PRN PRN Reason: PACU Use-HR<40 &/or Bradycardi Stop: 04/20/21 00:19 Ephedrine Sulfate (Ephedrine Sulfate 50 Mg/Ml Amp) 5 mg IV Q5M PRN PRN Reason: PACU Use Only-SBP<90 mmHg Stop: 04/20/21 00:19 Fentanyl Citrate (Fentanyl Citrate 100 Mcg/2 Ml Vial) 25 mcg IV Q5M PRN PRN Reason: PACU Use Only-Pain Stop: 04/20/21 00:19 Flumazenil (Flumazenil 0.1 Mg/1 Ml 10 Ml Vial) 0.2 mg IV Q2M PRN PRN Reason: PACU Use Only-Benzo Reversal Stop: 04/20/21 00:19 Furosemide (Furosemide 40 Mg Tab) 40 mg PO [id number] [place] Stop: 05/19/21 08:59 Last Admin: 04/19/21 08:23 Dose: 40 mg Documented by: Promethazine HCl 12.5 mg/ (Sodium Chloride) 50.5 mls @ 204 mls/hr IV ONCE PRN PRN Reason: PACU Use Only-Nausea/Vomiting Stop: 04/20/21 00:19 Lactated Ringer's (Lr) 1,000 mls @ 200 mls/hr IV .Q5H [place] Stop: 05/19/21 16:29 Ampicillin Sodium/Sulbactam Sodium 1,500 mg/ Sodium Chloride 104 mls @ 200 mls/hr IV Q6H SHE[place]; Protocol Stop: 04/29/21 17:14 Labetalol HCl (Labetalol Hcl Iv 5 Mg/Ml 20ml) 5 mg IV Q5M PRN PRN Reason: PACU Use-SBP>160 or DBP>100 Stop: 04/20/21 00:19 Lisinopril (Lisinopril 20 Mg Tab) 20 mg PO DAILY [place] Stop: 05/19/21 08:59 Last Admin: 04/19/21 08:23 Dose: 20 mg Documented by: Morphine Sulfate (Morphine Sulfate 2 Mg/Ml Carp) 2 mg IV Q3H PRN PRN Reason: Pain (1,2,3,4,5) & Pre PT Stop: 05/03/21 01:12 Morphine Sulfate (Morphine Sulfate 4 Mg/Ml 1 Ml Carp\Vial) 4 mg IV Q3H PRN PRN Reason: Pain (6,7,8,9,10) Stop: 05/03/21 01:12 Naloxone HCl (Naloxone Hcl 0.4 Mg/1 Ml Vial/Carp) 0.2 mg IV Q2M PRN PRN Reason: PACU Use Only-Opiate Reversal Stop: 04/20/21 00:19 Ondansetron HCl (Ondansetron Inj 2 Mg/Ml 2 Ml Vial) 4 mg IV Q6H PRN PRN Reason: Nausea Stop: 05/19/21 01:12 Ondansetron HCl (Ondansetron Inj 2 Mg/Ml 2 Ml Vial) 4 mg IV ONCE PRN PRN Reason: PACU Use Only-Nausea/Vomiting Stop: 04/20/21 00:19 Pantoprazole Sodium (Pantoprazole 40 Mg Tab) 40 mg PO DAILY [place]; Protocol Stop: 05/19/21 08:59 Last Admin: 04/19/21 08:23 Dose: 40 mg Documented by: Potassium Chloride (Potassium Chloride 10 Meq Tabcr) 10 meq PO [id number] [place] Stop: 05/19/21 08:59 Last Admin: 04/19/21 08:23 Dose: 10 meq Documented by: Simvastatin (Simvastatin 80 Mg Tab) 80 mg PO [facility] Stop: 05/19/21 20:59 Tamsulosin HCl (Tamsulosin Hcl 0.4 Mg Cap) 0.4 mg PO [facility] Stop: 05/19/21 20:59 Resident Activity Tracking Resident Involvement: Resident Care Provided Care Provided: Adult [facility] (1) BPH (benign prostatic hyperplasia) Lower urinary tract symptom presence: symptoms absent Qualified Code(s): N40.0 - Benign prostatic hyperplasia without lower urinary tract symptoms (2) HLD (hyperlipidemia) Hyperlipidemia type: unspecified Qualified Code(s): E78.5 - Hyperlipidemia, unspecified (3) HTN (hypertension) Hypertension type: essential hypertension Qualified Code(s): I10 - Essential (primary) hypertension (4) Acute pancreatitis Acute pancreatitis complication: unspecified Pancreatitis type: unspecified pancreatitis type Qualified Code(s): K85.90 - Acute pancreatitis without necrosis or infection, unspecified
--- NOTE | 2021-04-19 17:12 | Anesthesiology Progress Note ---
Date of Service April 19, 2021 Anesthesia Post Procedure Vital Signs Vital Signs: Temp Pulse Pulse Pulse Resp BP BP 04/19/21 17:00 91 H 18 131/68 04/19/21 16:50 91 H 20 133/67 04/19/21 16:40 89 18 126/70 04/19/21 16:30 93 H 18 130/80 04/19/21 16:23 36.4 C L 96 H 19 130/91 04/19/21 14:55 37.5 C 89 18 182/87 H 04/19/21 11:51 37.2 C 89 19 155/88 H 04/19/21 08:00 76 04/19/21 06:53 36.7 C 80 16 166/70 H 04/19/21 01:13 36.3 C L 84 18 145/81 H 04/19/21 00:55 36.3 C L 84 18 145/81 H 04/19/21 00:51 85 04/18/21 23:00 77 20 115/69 04/18/21 21:00 85 22 119/60 04/18/21 20:15 84 21 105/58 L 04/18/21 20:00 85 24 129/64 04/18/21 19:00 92 H 20 120/58 L 04/18/21 18:00 93 H 117/65 04/18/21 17:14 97 H 21 134/78 Pulse Ox Pulse Ox 04/19/21 17:00 94 04/19/21 16:50 95 04/19/21 16:40 94 04/19/21 16:30 95 04/19/21 16:23 96 04/19/21 14:55 92 04/19/21 11:51 92 04/19/21 08:00 04/19/21 06:53 94 04/19/21 01:13 92 04/19/21 00:55 92 92 04/19/21 00:51 04/18/21 23:00 92 04/18/21 21:00 94 04/18/21 20:15 92 04/18/21 20:00 92 04/18/21 19:00 93 04/18/21 18:00 92 04/18/21 17:14 91 Pain Intensity Abdomen: Pain Intensity: 3 Transfer of Care Handoff Completed per policy Notes Mental Status: alert / awake / arousable Patient Amnestic to Procedure: Yes Nausea / Vomiting: adequately controlled Pain: adequately controlled Airway Patency, RR, SpO2: stable & adequate BP & HR: stable & adequate Hydration State: stable & adequate Anesthetic Complications: no major complications apparent
[2021-04-19] MEDS: LACTATED RINGER'S 1,000 ML IV SCH ×2 (18:00→23:49)
--- NOTE | 2021-04-19 19:36 | Billing Data ---
Date of Service April 19, 2021 Coding Level of Care Code 71991 Subseq Hosp Care Lvl 3
--- NOTE | 2021-04-19 20:51 | Surgery Consultation ---
Date of Consultation April 19, 2021 Assessment & Plan (1) Cholelithiases: Patient has been admitted by the hospitalist. He has undergone an ERCP due to choledocholithiasis. Recommend proceeding as follows: Patient had evidence of pancreatitis would ideally like to see the patient's pancreatitis resolved before considering surgical intervention. Once patient's pancreatitis is completely resolved we will consider performing a laparoscopic cholecystectomy. I have discussed the risks, benefits, and expected clinical course and recovery. We will continue to reassess the patient daily with timing of cholecystectomy to be determined History of Present Illness Reason for Consultation: Cholelithiasis Attending Physician: Alex Paul DO History of Present Illness This is a 70-year-old male who was admitted to [facility] on 04/18/2021. Patient presented secondary to abdominal pain that was located primarily in the epigastric area. Patient says he did have some nausea vomiting. He denies any fevers, shakes, chills. I did question the patient up prior episodes of abdominal pain and he did note that for several months he has been getting some right upper quadrant abdominal pain may be 20 to 30 minutes after eating a meal but he says it was never very severe and always self resolved. He notes that the pain that he experienced at time of mission was so severe that he did present to the emergency department. Patient did have labs and imaging which I dependently reviewed. At time of adm ission his white blood cell count was noted be 14.1. It has now returned to normal. Patient's ESTEBAN globin hematocrit are noted to be 12.5 and 37.3. Platelet count is known to be within normal range. His coagulation studies are normal. Chemistry profile showed sodium and potassium are normal. The patient's creatinine is noted to be normal. Patient's BUN has a slight elevation at 22. Patient was noted to have elevated LFTs with a total bilirubin today of 5.3. His AST at time of admission was 256 but has decreased to 132. ALT was noted to be 570 at time of admission but has now decreased to 418. Alkaline phosphatase was 161 and has now decreased to 139. Patient was noted to have an elevated lipase at time of admission of 10,348. It has improved to 5956. Covid test has been performed and was noted to be negative. Patient had an MRCP this admission that showed small stones and sludge within the common bile duct. He was also noted to have sludge and stones in the gallbladder which appeared contracted. Patient was noted to have findings consistent with acute pancreatitis. CT scan at time of admission did show the patient had findings consistent with pancreatitis. There is no peripancreatic abscesses noted. The patient did undergo an ERCP today where the patient had his common bile duct cleared of stones and sludge. At the time of my interview the patient was resting comfortably in bed and he was in no distress. Allergies Allergy/AdvReac Type Severity Reaction Status Date / Time No Known Allergies Allergy Unknown Verified 04/18/21 21:05 Home Medications Medication Instructions Recorded Confirmed Type furosemide 40 mg tablet 40 mg PO BID 05/21/20 04/18/21 History lisinopril 20 mg tablet 20 mg PO DAILY 05/21/20 04/18/21 History omeprazole 20 mg capsule,delayed 20 mg PO DAILY 05/21/20 04/18/21 History release potassium chloride 10 mEq 10 meq PO BID 05/21/20 04/18/21 History tablet,extended release simvastatin 80 mg tablet 80 mg PO HS 05/21/20 04/18/21 History tamsulosin 0.4 mg capsule 0.4 mg PO HS 05/21/20 04/18/21 History dexamethasone 2 mg tablet 2 mg PO DAILY 04/18/21 04/18/21 History Patient History Medical History HLD (hyperlipidemia) HTN (hypertension) No pertinent family history Surgical History No pertinent past surgical history Social History Smoking Status: Never smoker Second Hand Exposure: No; Do You Dip or Chew Tobacco: No; Tobacco Cessation Education Requested by Patient: No Hx Alcohol Use: No Hx Substance Use: No Preferred Language: Armenian Communication Ability: Effective Academic Support Specialist Required: No Beliefs That Will Affect Care: None Current Living Situation: Spouse Current Living Situation Comment: at home with , independent at home. Other Information That Helps Us Care for You: No Feels Safe at Home: Yes Safety Concerns: Feels Safe At This Time Assistive Devices: None Review of Systems Constitutional: no fever and no chills Eyes: + corrective lenses Ear, Nose, Mouth, Throat: no ear pain and no sore throat Respiratory: no cough and no dyspnea Cardiovascular: no chest pain Gastrointestinal: + abdominal pain, + nausea and + vomiting Genitourinary: no dysuria Musculoskeletal: + back pain (Chronic problem) Integumentary: no rash Neurologic: no localized weakness Physical Exam Constitutional: well developed, well nourished and + obese; no acute distress Eyes: no conjunctival abnormality ENMT: Ears: no hearing impairment Mouth: no oropharynx abnormality Neck: trachea midline Respiratory: normal respiratory effort; no respiratory distress and no labored breathing Cardiovascular: Rate/Rhythm: regular rate and regular rhythm Vessels: posterior tibial pulses present Gastrointestinal (Abdomen): Abdomen is rotund. Bowel sounds are present. Abdomen is soft, nontender, nondistended. There is minimal to no pain with palpation. Musculoskeletal: No calf tenderness Skin: no rashes Neurologic: moves all extremities Psychiatric: A+Ox3, euthymic affect Results & Data ([facility]) Vital Signs (Past 12 Hours) Vital Signs Temp Pulse Pulse Pulse Resp BP BP 04/19/21 18:42 36.7 C 95 H 18 106/68 04/19/21 17:34 36.9 C 94 H 18 139/68 04/19/21 17:20 81 12 118/71 04/19/21 17:10 36.6 C 89 14 131/81 04/19/21 17:00 91 H 18 131/68 04/19/21 16:50 91 H 20 133/67 04/19/21 16:40 89 18 126/70 04/19/21 16:30 93 H 18 130/80 04/19/21 16:23 36.4 C L 96 H 19 130/91 04/19/21 14:55 37.5 C 89 18 182/87 H 04/19/21 14:30 84 04/19/21 11:51 37.2 C 89 19 155/88 H Pulse Ox 04/19/21 18:42 91 04/19/21 17:34 90 04/19/21 17:20 94 04/19/21 17:10 93 04/19/21 17:00 94 04/19/21 16:50 95 04/19/21 16:40 94 04/19/21 16:30 95 04/19/21 16:23 96 04/19/21 14:55 92 04/19/21 14:30 04/19/21 11:51 92 PG Care Time/CCT Total # of Minutes Spent Total Time Spent with Patient: Total time spent is greater than 50% in coordination of care (as documented) at patient's floor/unit and/or counseling patient: Coding Level of Care Code 03854 Inpt Consult Level 5 Diagnoses Cholelithiases K80.20
[2021-04-19] MEDS: TAMSULOSIN HCL 0.4 MG CAP PO SCH (21:03)
[2021-04-19] MEDS: AMPICILLIN/SULBACTAM SOD 1,500 MG in 0.9 % SODIUM CHLORIDE 100 ML IV SCH (21:03)
[2021-04-19] MEDS: SIMVASTATIN 80 MG TAB PO SCH (21:03)
--- NOTE | 2021-04-19 21:22 | Billing Data ---
Date of Service April 19, 2021 Coding Level of Care Code 35704 Initial Inpt Care Lvl 3
--- NOTE | 2021-04-19 21:29 | Fluoroscopy Report ---
FL ERCP biliary ductal CLINICAL INDICATION: Cholestasis, mid abdominal pain.. TECHNIQUE: 8 views were obtained with the C-arm in the OR with the above procedure. Total fluoroscopy time was 54 seconds. Total skin dose was 32.8 mGy. Comparison: Comparison is made to MRCP 04/18/2021 FINDINGS/IMPRESSION: Intraoperative images of ERCP and stent placement. Please correlate with intraoperative fluoroscopy and operative report. ACT 112: Negative or not required by law. Electronically signed by: Hero Echols M.D. 04/19/2021 9:27 PM
[2021-04-20] MEDS: AMPICILLIN/SULBACTAM SOD 1,500 MG in 0.9 % SODIUM CHLORIDE 100 ML IV SCH ×4 (03:41→21:00)
[2021-04-20] MEDS: MoRPHine SULFATE 4 MG/ML 1 ML CARP\\VIAL IV PRN ×2 (04:11→17:07)
--- NOTE | 2021-04-20 06:22 | Surgery Progress Note ---
Date of Service April 20, 2021 Assessment & Plan (1) Cholelithiases: Plan: Patient has been admitted by the hospitalist. He has undergone an ERCP due to choledocholithiasis. Recommend proceeding as follows: Currently we are waiting patient's a.m. labs for further evaluation of pancreatitis that was noted at time of admission once pancreatitis resolved we will consider performing cholecystectomy Admission and Anticipated Discharge Date Admission Date: April 18, 2021 Supervising Physician Co-Signing Physician Notes As per Jason Bedoya physician cafeteria assistant Patient is resting comfortably no abdominal findings Subjective Patient is resting in bed. At the present time he denies any nausea or vomiting. He did note some epigastric pain last night requiring administration of some analgesics but this has improved. Physical Exam Gastrointestinal (Abdomen): Abdomen is soft and nondistended. Patient did have some pain with palpation in the epigastric area Results & Data ([facility]) Vital Signs (Past 12 Hours) Vital Signs Temp Pulse Pulse Pulse Resp BP BP 04/20/21 04:31 37.1 C 69 16 166/79 H 04/20/21 00:45 81 04/19/21 23:00 36.7 C 82 18 134/73 04/19/21 18:42 36.7 C 95 H 18 106/68 Pulse Ox 04/20/21 04:31 95 04/20/21 00:45 04/19/21 23:00 93 04/19/21 18:42 91 PG Care Time/CCT Total # of Minutes Spent Total Time Spent with Patient: Total time spent is greater than 50% in coordination of care (as documented) at patient's floor/unit and/or counseling patient: Coding Level of Care Code 52609 Subseq Hosp Care Lvl 1 Diagnoses Cholelithiases K80.20
[2021-04-20] MEDS: LACTATED RINGER'S 1,000 ML IV SCH ×3 (06:28→22:18)
[2021-04-20 06:38] LABS: Hematocrit (blood only) 34.8 % (42-52); Hemoglobin 11.2 g/dL (14.0-18.0); Mean Corpuscular Hemoglobin 30.5 pg (25-34); Mean Corpuscular Hgb Conc 32.2 g/dL (32-36); Mean Corpuscular Volume 94.8 fL (80-100); Mean Platelet Volume 9.4 fL (7.4-10.4); Platelet Count 168 K/uL (130-400); RDW Coefficient of Variation 14.1 % (11.5-14.5); RDW Standard Deviation 49.1 fL (36.4-46.3); Red Blood Count 3.67 M/uL (4.7-6.1); White Blood Count 11.58 K/uL (4.8-10.8)
--- NOTE | 2021-04-20 06:47 | Electrocardiogram Report ---
Test Reason : Blood Pressure : / mmHG Vent. Rate : 081 BPM Atrial Rate : 081 BPM P-R Int : 204 ms QRS Dur : 082 ms QT Int : 374 ms P-R-T Axes : 043 022 036 degrees QTc Int : 434 ms Normal sinus rhythm T wave abnormality, consider anterior ischemia Abnormal ECG When compared with ECG of 11-MAY-2014 10:00, T wave inversion now evident in Anterior leads Confirmed by Rao Rosenberg ([id number]) on 04/20/2021 6:47:03 AM Referred By: REFERRED SELF Confirmed By:Rao Rosenberg
[2021-04-20 07:45] LABS: Calcium 8.4 mg/dl (8.5-10.1); Creatinine Clr Calc Pharmacy 89.9 ml/min; Est GFR (African American) 94.9 ml/min; Est GFR (Non-African American) 81.9 ml/min
[2021-04-20] MEDS: POTASSIUM CHLORIDE 10 MEQ TABCR PO SCH ×2 (08:22→17:07)
[2021-04-20] MEDS: lisinopril 20 MG TAB PO SCH (08:23)
[2021-04-20] MEDS: PANTOprazole 40 MG TAB PO SCH (08:23)
--- NOTE | 2021-04-20 18:34 | Hospitalist Progress Note ---
Date of Service April 20, 2021 Assessment & Plan (1) Acute pancreatitis: Plan: Milton Martinez is a 70-year-old male with past medical history of BPH, hyperlipidemia, hypertension who comes in due to abdominal pain for [address] showing pancreatitis, common dile duct debris, and gallstones. Acute Pancreatitis Gallstone pancreatitisnow status post ERCP, bile duct evacuation, and stenting -Continue antibiotics given procedure -Anticipate cholecystectomy on Thursday -Clear liquid diet, supportive caregiven that he has improved so much, can reduce fluids Bile Duct Debris See above/ERCP Hypertension/Hyperlipidemia Lasix on hold given that he was here with pancreatitis and being given lots of fluids. Continue to follow volume status, today he looks euvolemic. Is somewhat hypertensive, but asymptomatic. Follow BPH Continue home tamsulosin no LUTS complaints today GERD Continue PPI per hospital formulary DVT prophylaxis: We will give Lovenox today and tomorrow, then hold for procedure Dispo: Stable for medical CODE STATUS: Conditional code (2) BPH (benign prostatic hyperplasia): (3) HLD (hyperlipidemia): (4) HTN (hypertension): (5) Bile duct abnormality: Admission and Anticipated Discharge Date Admission Date: April 18, 2021 Subjective Feeling much better. Tolerating liquid diet well. Plan for cholecystectomy Thursday. Far less abdominal pain, generally feels much better. Review of Systems Review of Systems: All systems reviewed & are unremarkable except as noted in HPI & below Physical Exam Physical Exam: In general he is awake alert oriented, pleasant no distress. HEENT normocephalic atraumatic mucous membranes moist. Breathing unlabored no accessory muscle use good effort. Abdomen is soft nondistended nontender no masses organomegalyof note his epigastric tenderness from yesterday is essentia lly resolved. No guarding rebound or rigidity. Results & Data Results & Data ([facility]) Vital Signs (Past 12 Hours) Vital Signs Temp Pulse Pulse Resp BP Pulse Ox 04/20/21 15:22 68 04/20/21 14:46 98.4 F 77 20 177/76 H 96 04/20/21 11:05 99.0 F 71 20 142/68 H 93 04/20/21 08:00 83 04/20/21 07:17 98.6 F 78 20 161/70 H 93 PG Care Time/CCT Total # of Minutes Spent Total Time Spent with Patient: Total time spent is greater than 50% in coordination of care (as documented) at patient's floor/unit and/or counseling patient: Coding Level of Care Code 00922 Subseq Hosp Care Lvl 3 Diagnoses Acute pancreatitis K85.90 Acute pancreatitis complication: unspecified Pancreatitis type: unspecified pancreatitis type BPH (benign prostatic hyperplasia) N40.0 Lower urinary tract symptom presence: symptoms absent HLD (hyperlipidemia) E78.5 Hyperlipidemia type: unspecified HTN (hypertension) I10 Hypertension type: essential hypertension Bile duct abnormality K83.9 (1) Acute pancreatitis Acute pancreatitis complication: unspecified Pancreatitis type: unspecified pancreatitis type Qualified Code(s): K85.90 - Acute pancreatitis without necrosis or infection, unspecified (2) BPH (benign prostatic hyperplasia) Lower urinary tract symptom presence: symptoms absent Qualified Code(s): N40.0 - Benign prostatic hyperplasia without lower urinary tract symptoms (3) HLD (hyperlipidemia) Hyperlipidemia type: unspecified Qualified Code(s): E78.5 - Hyperlipidemia, unspecified (4) HTN (hypertension) Hypertension type: essential hypertension Qualified Code(s): I10 - Essential (primary) hypertension
[2021-04-20] MEDS ORDERED: ENOXAPARIN INJ 40 MG/0.4 ML SYR SQ SCH (19:00)
[2021-04-20] MEDS: SIMVASTATIN 80 MG TAB PO SCH (20:07)
[2021-04-20] MEDS: TAMSULOSIN HCL 0.4 MG CAP PO SCH (20:07)
[2021-04-21] MEDS: AMPICILLIN/SULBACTAM SOD 1,500 MG in 0.9 % SODIUM CHLORIDE 100 ML IV SCH ×4 (03:15→21:16)
[2021-04-21] MEDS: MoRPHine SULFATE 4 MG/ML 1 ML CARP\\VIAL IV PRN (03:16)
--- NOTE | 2021-04-21 05:48 | Surgery Progress Note ---
Date of Service April 21, 2021 Assessment & Plan (1) Cholelithiases: Plan: ERCP performed on 1post procedure day #2 Patient is clinically improved Continue antibiotics in the form of Unasyn Patient's pancreatitis appears to be resolving. We are awaiting a.m. labs to assess his lipase and LFTs. We will discuss with attending surgeon timing of potential cholecystectomy Admission and Anticipated Discharge Date Admission Date: April 18, 2021 Supervising Physician Co-Signing Physician Notes I had anticipated performing a laparoscopic cholecystectomy today on the patient but he is clinically he still has not resolved this pancreatitis his abdomen is distended he has had no flatus or any GI function Therefore we will hold off surgery for today reevaluate him tomorrow Subjective Patient notes that he feels better than prior to his ERCP. He does continue to get intermittent episodes of epigastric pain but denies any nausea or vomiting. Since his ERCP has not had a bowel movement or flatus. He is tolerating clear liquids without any exacerbation of his abdominal pain. Physical Exam Gastrointestinal (Abdomen): Abdomen is rotund with positive bowel sounds. There is slight tenderness noted with palpation in the epigastric area. No rebound tenderness or guarding. Results & Data ([facility]) Vital Signs (Past 12 Hours) Vital Signs Temp Pulse Resp BP Pulse Ox 04/20/21 23:00 37.0 C 87 18 165/90 H 96 04/20/21 22:13 37.0 C 74 18 161/78 H 94 PG Care Time/CCT Total # of Minutes Spent Total Time Spent with Patient: Total time spent is greater than 50% in coordination of care (as documented) at patient's floor/unit and/or counseling patient: Coding Level of Care Code 25779 Subseq Hosp Care Lvl 1 Diagnoses Cholelithiases K80.20
[2021-04-21 06:12] LABS: Albumin Globulin Ratio 0.6 (0.9-2); Albumin Level 2.5 gm/dl (3.4-5.0); BUN Creatinine Ratio 12.7 (10-20); Bilirubin,Total 1.1 mg/dl (0.2-1); Calcium 8.6 mg/dl (8.5-10.1); Creatinine Clr Calc Pharmacy 108.1 ml/min; Est GFR (African American) 106.9 ml/min; Est GFR (Non-African American) 92.3 ml/min; Globulin 3.9 gm/dl (2.5-4.0); Potassium 3.8 mmol/L (3.5-5.1); Total Protein 6.4 gm/dl (6.4-8.2)
[2021-04-21] MEDS: lisinopril 20 MG TAB PO SCH (08:43)
[2021-04-21] MEDS: LACTATED RINGER'S 1,000 ML IV SCH ×2 (08:43→16:28)
[2021-04-21] MEDS: POTASSIUM CHLORIDE 10 MEQ TABCR PO SCH ×2 (08:43→16:37)
[2021-04-21] MEDS: PANTOprazole 40 MG TAB PO SCH (08:44)
[2021-04-21] MEDS: TAMSULOSIN HCL 0.4 MG CAP PO SCH ×2 (16:29→21:16)
--- NOTE | 2021-04-21 16:37 | Hospitalist Progress Note ---
Date of Service April 21, 2021 Assessment & Plan (1) Acute pancreatitis: Plan: Milton Martinez is a 70-year-old male with past medical history of BPH, hyperlipidemia, hypertension who comes in due to abdominal pain for [address] showing pancreatitis, common dile duct debris, and gallstones. Acute Pancreatitis Gallstone pancreatitisnow status post ERCP, bile duct evacuation, and stenting -Continue antibiotics given procedure -Anticipate cholecystectomy tomorrow Bile Duct Debris See above/ERCP Hypertension/Hyperlipidemia Lasix on hold given that he was here with pancreatitis and being given lots of fluids. Continue to follow volume status, today he still looks euvolemic. Is somewhat hypertensive, but asymptomatic. Follow BPH Continue home tamsulosin no LUTS complaints GERD Continue PPI per hospital formulary DVT prophylaxis: Was on Lovenox, now on hold for procedure Dispo: Stable on medical, anticipate DC home after surgerywe will need to see how he is doing, whether or not we will need PT/OT, but hopefully not. CODE STATUS: Conditional code (2) BPH (benign prostatic hyperplasia): (3) HLD (hyperlipidemia): (4) HTN (hypertension): (5) Bile duct abnormality: Admission and Anticipated Discharge Date Admission Date: April 18, 2021 Subjective Feeling okay. No real pain. Tolerating liquid diet wellnotes now he is nothing but ice chips. Essentially awaiting cholecystectomy. Review of Systems Review of Systems: All systems reviewed & are unremarkable except as noted in HPI & below Physical Exam Physical Exam: In general he is awake and alert pleasant no distress. HEENT normocephalic atraumatic mucous membranes moist. Breathing unlabored no accessory muscle use good effort. Skin shows no rashes no pallor or icterus. Neuro without focal deficits. Results & Data Results & Data ([facility]) Vital Signs (Past 12 Hours) Vital Signs Temp Pulse Resp BP Pulse Ox 04/21/21 15:07 97.9 F 73 17 176/80 H 96 04/21/21 07:31 98.4 F 68 18 158/91 H 94 PG Care Time/CCT Total # of Minutes Spent Total Time Spent with Patient: Total time spent is greater than 50% in coordination of care (as documented) at patient's floor/unit and/or counseling patient: Coding Level of Care Code 58387 Subseq Hosp Care Lvl 2 Diagnoses Acute pancreatitis K85.90 Acute pancreatitis complication: unspecified Pancreatitis type: unspecified pancreatitis type BPH (benign prostatic hyperplasia) N40.0 Lower urinary tract symptom presence: symptoms absent HLD (hyperlipidemia) E78.5 Hyperlipidemia type: unspecified HTN (hypertension) I10 Hypertension type: essential hypertension Bile duct abnormality K83.9 (1) Acute pancreatitis Acute pancreatitis complication: unspecified Pancreatitis type: unspecified pancreatitis type Qualified Code(s): K85.90 - Acute pancreatitis without necrosis or infection, unspecified (2) BPH (benign prostatic hyperplasia) Lower urinary tract symptom presence: symptoms absent Qualified Code(s): N40.0 - Benign prostatic hyperplasia without lower urinary tract symptoms (3) HLD (hyperlipidemia) Hyperlipidemia type: unspecified Qualified Code(s): E78.5 - Hyperlipidemia, unspecified (4) HTN (hypertension) Hypertension type: essential hypertension Qualified Code(s): I10 - Essential (primary) hypertension
[2021-04-21] MEDS ORDERED: ENOXAPARIN INJ 40 MG/0.4 ML SYR SQ SCH (19:00)
[2021-04-21] MEDS: SIMVASTATIN 80 MG TAB PO SCH (21:15)
[2021-04-22] MEDS: MoRPHine SULFATE 4 MG/ML 1 ML CARP\\VIAL IV PRN (01:24)
[2021-04-22] MEDS: LACTATED RINGER'S 1,000 ML IV SCH (04:18)
[2021-04-22] MEDS: AMPICILLIN/SULBACTAM SOD 1,500 MG in 0.9 % SODIUM CHLORIDE 100 ML IV SCH (04:18)
--- NOTE | 2021-04-22 05:38 | Surgery Progress Note ---
Date of Service April 22, 2021 Assessment & Plan (1) Cholelithiases: Plan: We will proceed with laparoscopic cholecystectomy possible cholangiogram today Risk and complication explained to the patient he would like to proceed accordingly Vinicio has been held All questions answered Admission and Anticipated Discharge Date Admission Date: April 18, 2021 Subjective Feels much better than yesterday morning states has significant amount of flatus and feels much softer as far as his belly Physical Exam Physical Exam: Abdomen still prominent but not as tense as it was yesterday Results & Data ([facility]) Vital Signs (Past 12 Hours) Vital Signs Temp Pulse Resp BP Pulse Ox 04/21/21 22:42 36.8 C 79 19 165/80 H 97 PG Care Time/CCT Total # of Minutes Spent Total Time Spent with Patient: Total time spent is greater than 50% in coordination of care (as documented) at patient's floor/unit and/or counseling patient: Coding Level of Care Code 67732 Subseq Hosp Care Lvl 2 Diagnoses Cholelithiases K80.20
[2021-04-22] MEDS ORDERED: MIDAZOLAM HCL 1 MG/ML 2ML VIAL ONE (07:22)
[2021-04-22] MEDS ORDERED: fentaNYL citrate 100 MCG/2 ML VIAL ONE ×2 (07:22→08:30)
[2021-04-22] MEDS ORDERED: SUGAMMADEX SODIUM 200 MG/2 ML VIAL IV ONE ×2 (07:26→08:43)
[2021-04-22] MEDS ORDERED: HYDROmorphone INJ 1 MG/ML SYRINGE IV PRN (07:32)
[2021-04-22] MEDS ORDERED: ONDANSETRON INJ 2 MG/ML 2 ML VIAL IV PRN (07:32)
[2021-04-22] MEDS ORDERED: ATROPINE SULFATE 0.1 MG/ML 10ML SYR IV PRN (07:32)
[2021-04-22] MEDS ORDERED: ePHEDrine sulfate 50 MG/ML AMP IV PRN (07:32)
[2021-04-22] MEDS ORDERED: fentaNYL citrate 100 MCG/2 ML VIAL IV PRN (07:32)
--- NOTE | 2021-04-22 07:37 | Anesthesiology Consultation ---
Date of Service April 22, 2021 Assessment & Plan (1) Encounter for pre-operative examination: Chart Review Chart Review: Acceptable Risk for Surgery and Patient NOT seen in Pre Admission Testing Consults Requested none History Surgery Operation Date: 04/19/21 10:15 Proposed Procedures p Endoscopic Retrograde Cholangiopancreatography - Steven Guadarrama DO Operation Date: 04/22/21 08:05 Proposed Procedures p Laparoscopic Cholecystectomy with Cholangiogram - Warren Brasher MD, FACS Height/Weight Height: 5 ft 5 in Weight: 121.3 kg Allergies Allergy/AdvReac Type Severity Reaction Status Date / Time No Known Allergies Allergy Unknown Verified 04/18/21 21:05 Medications Home Medications Medication Instructions Recorded Confirmed Last Taken furosemide 40 mg tablet 40 mg PO BID 05/21/20 04/18/21 04/18/21 am lisinopril 20 mg tablet 20 mg PO DAILY 05/21/20 04/18/21 04/18/21 omeprazole 20 mg capsule,delayed 20 mg PO DAILY 05/21/20 04/18/21 04/18/21 release potassium chloride 10 mEq 10 meq PO BID 05/21/20 04/18/21 04/18/21 tablet,extended release am simvastatin 80 mg tablet 80 mg PO HS 05/21/20 04/18/21 04/17/21 tamsulosin 0.4 mg capsule 0.4 mg PO HS 05/21/20 04/18/21 04/17/21 dexamethasone 2 mg tablet 2 mg PO DAILY 04/18/21 04/18/21 04/18/21 Active Medications Generic Name Dose Route Start Last Admin Trade Name Freq PRN Reason Stop Dose Admin Enoxaparin Sodium 40 mg 04/20/21 19:00 04/20/21 20:08 Enoxaparin Inj 40 Mg/0.4 Ml Syr SQ 05/20/21 18:59 40 mg Q24H SHELTON Administration Lactated Ringer's 1,000 mls @ 85 mls/hr 04/19/21 16:30 04/22/21 05:02 Lr IV 05/19/21 16:29 85 mls/hr .[id number] SHE[place] Infusion Ampicillin Sodium/Sulbactam 104 mls @ 200 mls/hr 04/19/21 22:00 04/22/21 05:01 Sodium 1,500 mg/ Sodium IV 04/29/21 21:59 Infused Chloride Q6H SHELTON Infusion Protocol Lisinopril 20 mg 04/19/21 09:00 04/21/21 08:43 Lisinopril 20 Mg Tab PO 05/19/21 08:59 20 mg DAILY SHELTON Administration Morphine Sulfate 4 mg 04/19/21 01:13 04/22/21 01:24 Morphine Sulfate 4 Mg/Ml 1 Ml Carp\Vial IV 05/03/21 01:12 4 mg Q3H PRN Administration Pain (6,7,8,9,10) Pantoprazole Sodium 40 mg 04/19/21 09:00 04/21/21 08:44 Pantoprazole 40 Mg Tab PO 05/19/21 08:59 40 mg DAILY SHELTON Administration Protocol Potassium Chloride 10 meq 04/19/21 09:00 04/21/21 16:37 Potassium Chloride 10 Meq Tabcr PO 05/19/21 08:59 10 meq [id number] SHE[place]TON Administration Simvastatin 80 mg 04/19/21 21:00 04/21/21 21:15 Simvastatin 80 Mg Tab PO 05/19/21 20:59 80 mg HS SHE[place]TON Administration Tamsulosin HCl 0.4 mg 04/19/21 21:00 04/21/21 21:16 Tamsulosin Hcl 0.4 Mg Cap PO 05/19/21 20:59 0.4 mg HS SHELTON Administration NPO Date Last Intake of Fluids: 04/21/21 Time Last Intake of Fluids: 23:59 Date Last Intake of Solids: 04/21/21 Time Last Intake of Solids: 23:59 Past Medical History Medical History (Updated 04/22/21 @ 07:36 by Lewis Aguilar MD) Acute pancreatitis Choledocholithiasis HLD (hyperlipidemia) HTN (hypertension) No pertinent family history Covid positive 05/2020. Covid neg 04/18/21 Exercise / Class Metabolic Activity III < 4 Walking/Shop/Light housework Past Surgical History Surgical History (Updated 04/22/21 @ 07:35 by Lewis Aguilar MD) S/P ERCP Past Anesthesia History No Hx of Anesthesia Complications and No Family Hx of Anesthesia Complications History of PONV No Hx of PONV and No Hx of Motion Sickness Social History Smoking Status: Never smoker Do You Dip or Chew Tobacco: No Hx Alcohol Use: No Hx Substance Use: No Physical Exam Vital Signs Last Vital Signs Temp 36.8 C 04/21/21 22:42 Pulse 79 04/21/21 22:42 Resp 19 04/21/21 22:42 BP 165/80 H 04/21/21 22:42 Pulse Ox 97 04/21/21 22:42 Testing Laboratory Results 04/20/21 06:12 PT 10.7 Seconds (9.0-12.0) 04/19/21 14:18 INR 1.1 (0.9-1.1) 04/19/21 14:18 Urine Color Dark Yellow 04/18/21 15:54 Urine Appearance Clear (Clear) 04/18/21 15:54 Urine pH 6.5 (4.5-7.5) 04/18/21 15:54 Ur Specific [place] 1.013 (1.000-1.030) 04/18/21 15:54 Urine Protein Trace (Negative) H 04/18/21 15:54 Urine Glucose (UA) Negative (Negative) 04/18/21 15:54 Urine Ketones Negative (Negative) 04/18/21 15:54 Urine Nitrite Negative (Negative) 04/18/21 15:54 Ur Leukocyte Esterase Negative (Negative) 04/18/21 15:54 Urine WBC (Auto) 1-5 /hpf (0-5) 04/18/21 15:54 Urine RBC (Auto) 0-4 /hpf (0-4) 04/18/21 15:54 U Hyaline Cast (Auto) 0 /lpf (0-5) 04/18/21 15:54 U Epithel Cells (Auto) 0-5 /lpf (0-5) 04/18/21 15:54 Urine Bacteria (Auto) Negative (Negative) 04/18/21 15:54 Electrocardiogram Date: 04/18/21 DICTATED BY: Rao Rosenberg MD Test Reason : Blood Pressure : / mmHG Vent. Rate : 081 BPM Atrial Rate : 081 BPM P-R Int : 204 ms QRS Dur : 082 ms QT Int : 374 ms P-R-T Axes : 043 022 036 degrees QTc Int : 434 ms Normal sinus rhythm T wave abnormality, consider anterior ischemia Abnormal ECG When compared with ECG of 11-MAY-2014 10:00, T wave inversion now evident in Anterior leads Confirmed by Rao Rosenberg ([id number]) on 04/20/2021 6:47:03 AM Chest X-Ray Date: 04/18/21 Findings: + NAD
[2021-04-22 07:50] LABS: Creatinine Clr Calc Pharmacy 120.3 ml/min; Est GFR (African American) 111.7 ml/min; Est GFR (Non-African American) 96.4 ml/min
[2021-04-22] MEDS ORDERED: LIDOCAINE/EPINEPHRINE 1% 20 ML VIAL ONE (07:56)
--- NOTE | 2021-04-22 08:42 | Post Operative Brief Note ---
PG Immediate Post Op with CF Date of Surgery April 22, 2021 Pre & Post Diagnosis Operation Date: 04/19/21 10:15 Pre-Op Diagnosis: acute gallstone pancreatitis Post-Op Diagnosis: choledocolithiasis Operation Date: 04/22/21 08:05 Pre-Op Diagnosis: Cholelithiases Post-Op Diagnosis: Extensive Adhesions to Gallbladder, Colonic Distention I identified the patient and participated in the time-out.: Yes Procedure Operation Date: 04/19/21 10:15 Actual Procedures p Endoscopic Retrograde Cholangiopancreatography, placement of common bile duct stent and pancreatic stent and sphincterotomy - Steven Guadarrama DO Operation Date: 04/22/21 08:05 Actual Procedures p Laparoscopy(Not Applicable) - Warren Brasher MD, FACS Surgeon Warren Brasher MD, FACS [employer] Brusher none Estimated Blood Loss 5 Findings Consistent with Post-Op Diagnosis Specimens Specimen Description: no specimens per surgeon
--- NOTE | 2021-04-22 08:56 | Operative Report ---
Post Operative Report Pre & Post Diagnosis Operation Date: 04/19/21 10:15 Pre-Op Diagnosis: acute gallstone pancreatitis Post-Op Diagnosis: choledocolithiasis Operation Date: 04/22/21 08:05 Pre-Op Diagnosis: Cholelithiases Post-Op Diagnosis: Extensive Adhesions to Gallbladder, Colonic Distention I identified the patient and participated in the time-out.: Yes Procedure Operation Date: 04/19/21 10:15 Actual Procedures p Endoscopic Retrograde Cholangiopancreatography, placement of common bile duct stent and pancreatic stent and sphincterotomy - Steven Guadarrama DO Operation Date: 04/22/21 08:05 Actual Procedures p Laparoscopy(Not Applicable) - Warren Brasher MD, FACS The patient was brought into the operating theater supine position general endotracheal anesthesia the abdomen was prepped Betadine solution properly draped timeout was had patient was identified made small incision approximately 2 inches above the umbilical crater in the midline sufficient to place a Veress needle followed by CO2 followed by 5 mm scope identify the patient has significant colonic distention unable to really see the liver in the right upper quadrant colonic distention extended all the way to the splenic flexure consistent with his pancreatitis at this point a 5 mm epigastric and a 5 mm right upper quadrant port were placed with local analgesic with the anticipation of the tried to mobilize the colon and the omentum off the liver to create a window so that we could perform it cholecystectomy unfortunate this was not visible on this gentleman he has significant adhesions unable to really of the identify the gallbladder some fine adhesions from the falciform ligament down to the right lobe of the liver these were taken down by sharp dissection but there was significant hard eyes adhesions of the omentum and plastering on the gallbladder area that I cannot even see any plane of dissection at this point I made the decision not to perform a cholecystectomy since it would have been unlikely that I could have done it without converting him to an open procedure and given his large habitus I felt best to lay quiet things down and come back at a later date Of note we had held off proceeding with laparoscopic cholecystectomy yesterday as his abdomen was distended and he had not had any flatus and stated that over the day yesterday he had a significant amount of flatus and his abdomen was softer and stating that his belly is usually this big Individual trochars removed 4-0 Monocryl for his subcutaneous Caroline-Strips applied procedure was tolerated well by the patient estimated blood loss 5 cc Addendum Pako sevilla was present throughout the procedure and helped the retraction exposure and wound closure addendum talked to his Faiza at [phone] and explained to the procedure that we will backed out and will reevaluate him in approximately 1 month and at that time consider doing a laparoscopic cholecystectomy letting things quiet down more from his pancreatitis Surgeon Warren Brasher MD, FACS Medical Billing Associate none Estimated Blood Loss 5 Findings Consistent with Post-Op Diagnosis Significant distention of the colon from the splenic flexure the ascending colon Significant adhesions of omentum to the undersurface of the liver unable to really visualize the gallbladder Specimens None Description of Procedure merda I attest to the content of the Intraoperative Record and any orders documented therein. Any exceptions are noted below.
[2021-04-22] MEDS ORDERED: ONDANSETRON INJ 2 MG/ML 2 ML VIAL ONE (09:18)
[2021-04-22] MEDS ORDERED: DEXAMETHASONE SOD INJ 4 MG/ML VIAL ONE (09:18)
[2021-04-22] MEDS ORDERED: PROPOFOL IV EMULSION 10 MG/ML 20 ML VIAL IV ONE (09:18)
[2021-04-22] MEDS ORDERED: LIDOCAINE 2% 2 ML VIAL/AMP(20MG/ML) INFIL ONE (09:18)
[2021-04-22] MEDS ORDERED: LARYING-O-JET KIT (LTA) ONE (09:18)
[2021-04-22] MEDS ORDERED: ROCURONIUM BROMIDE 10 MG/ML 5 ML VIAL IV ONE (09:18)
[2021-04-22] MEDS ORDERED: SUCCINYLCHOLINE CHLORIDE 20 MG/ML 10 ML VIAL IV ONE (09:18)
[2021-04-22] MEDS ORDERED: oxyCODONE/ACETAMINOPHEN 5mg/325mg TAB PO PRN ×2 (10:17)
--- NOTE | 2021-04-22 10:18 | Anesthesiology Progress Note ---
Date of Service April 22, 2021 Anesthesia Post Procedure Vital Signs Vital Signs: Temp Pulse Pulse Resp BP Pulse Ox 04/22/21 10:00 75 18 165/79 H 94 04/22/21 09:50 72 14 168/76 H 94 04/22/21 09:40 77 14 163/76 H 94 04/22/21 09:30 37.1 C 78 18 166/81 H 94 04/22/21 09:20 79 12 174/74 H 96 04/22/21 09:11 36.2 C L 88 14 172/82 H 93 04/22/21 07:44 36.9 C 68 20 180/93 H 94 04/21/21 22:42 36.8 C 79 19 165/80 H 97 04/21/21 15:07 36.6 C 73 17 176/80 H 96 Pain Intensity Abdomen: Pain Intensity: 0 Transfer of Care Handoff Completed per policy Notes Mental Status: alert / awake / arousable and participated in evaluation Patient Amnestic to Procedure: Yes Nausea / Vomiting: adequately controlled Pain: adequately controlled Airway Patency, RR, SpO2: stable & adequate BP & HR: stable & adequate Hydration State: stable & adequate Anesthetic Complications: no major complications apparent and Pt Satisfied with anesthetic care
[2021-04-22] MEDS: PANTOprazole 40 MG TAB PO SCH (10:51)
[2021-04-22] MEDS: lisinopril 20 MG TAB PO SCH (10:52)
[2021-04-22] MEDS: POTASSIUM CHLORIDE 10 MEQ TABCR PO SCH (10:53)
--- NOTE | 2021-04-22 13:27 | Discharge Summary ---
Date of Service April 22, 2021 Admission HPI Per Admitting Provider Milton Martinez is a 70-year-old male with past medical history of BPH, hyperlipidemia, hypertension who comes in due to abdominal pain for 1 day. His abdominal pain started today as he was mowing the grass at home. He localizes the pain to the mid upper abdomen, and states that it felt like someone punched him in the stomach. He did not have any nausea, vomiting, fever, chills, diarrhea, constipation. He rates that pain 7 out of 10 at worst, but states that currently he has no pain since he was given medications in the ED. In the ED he received Toradol 30 mg IV x1, 1 L normal saline bolus. Lab work showed a white count of 14.11, hemoglobin 14.1, platelet count 213. Metabolic panel showed normal electrolytes. He had elevated T bili to 4.4, AST of 256, ALT of 570, [place] 161[place] [address]. At this point, MRCP was ordered with statrad read as follows: "Under distended contracted gallbladder with stones/debris. Suspected debris in the common bile duct as well. Pancreatitis. Small focal dilatation related to the pancreatic duct versus small high signal foci in the pancreas. Mild fatty liver. Renal cyst." Radiologist:Silke Nagy MD Principal Diagnosis gallstone pancreatitis Discharge Exam gen aaox3 pleasant nad heent nc at mmm breathing unlabored no accessory muscles good effort skin no rashes no pallor or icterus neuro no focal deficits Discharge Data Allergies Allergy/AdvReac Type Severity Reaction Status Date / Time No Known Allergies Allergy Unknown Verified 04/18/21 21:05 Consultations 04/18/21 21:03 ED Decision to Admit Stat 04/19/21 01:13 Consult Gastroenterology Routine 04/19/21 17:10 Consult General Surgery Routine 04/19/21 19:34 Consult Gastroenterology Routine Procedures Performed Operation Date: 04/19/21 10:15 Actual Procedures p Endoscopic Retrograde Cholangiopancreatography, placement of common bile duct stent and pancreatic stent and sphincterotomy - Steven Guadarrama DO Operation Date: 04/22/21 08:05 Actual Procedures p Laparoscopy(Not Applicable) - Warren Brasher MD, FACS Ordered Studies 04/18/21 16:11 CT abd pelvis IV con only Stat 04/18/21 21:20 MR MRCP Stat 04/19/21 12:14 FL ERCP biliary ductal Routine Hospital Course (1) Acute pancreatitis: Milton Martinez is a 70-year-old male with past medical history of BPH, hyperlipidemia, hypertension who comes in due to abdominal pain for [address] showing pancreatitis, common dile duct debris, and gallstones. Acute Pancreatitis Gallstone pancreatitisnow status post ERCP, bile duct evacuation, and stenting -cholecystectomy attempted today - could not be safely completed due to colonic distention -for now safe for home, anticipate cholecystectomy in coming ~2wks or so -home on augmentin given biliary procedure (5 more days) -low fat diet Bile Duct Debris See above/ERCP done/stenting - surgery/GI for stent removal likely at/around time of cholecystectomy hypoxia -asymptomatic low-grade O2 requirement. pt/myself strongly suspect atelectasis. i also suspect a degree of JACINDA that can be followed up as outpt. d/w nursing to ensure no desaturation on room air prior to discharge. Hypertension/Hyperlipidemia no change in home meds. outpt f/u BPH Continue home tamsulosin no LUTS complaints DVT prophylaxis: Was on Lovenox during hospital stay Dispo: stable for home, close PCP and surgery follow up, GI/surgery for stent removal at/around time of choley CODE STATUS: Conditional code Total Time Total Time Spent Total Time Spent (In Minutes): <30 Discharge Plan Discharge Items Patient Disposition: Home - Self-Care Reason For Visit: PANCREATITIS, GALLSTONES, CBD DEBRIS Discharge Diagnosis: Gallstone pancreatitis (see below) Activity: As commented below Lifting: No more than 10 pounds Bathing Comment: can shower tomorrow, leave steri-strips on for 1 week Driving/Machine Use: Resume 3 days after discharge Non-emergency contact: Surgeon Call non-emergency contact if: you have any medication questions, your pain is not controlled, you have a fever and your temperature is above 101.5 Follow-up/Referrals: Warren Brasher MD, FACS [Surgeon] - (Please call to make an appt in 1 week) Roge Arevalo MD [Primary Care Provider] - Diet: Low Fat Addtl Attending Provider Instructions: Gallstone pancreatitis -Your initial abdominal pain was due to pancreatitisinflammation of your pancreas (which is a digestive organ that sits right below your stomach)what happened was you were passing gallstones, the gallbladder/liver end up sharing the same drain pipe as the pancreasand so as some of those stones were passing, they blocked up not just the liver and gallbladder, but also the pancreas. This allowed some of the pancreas is digestive enzymes to back up on the pancreas itself, leading to the inflammation that caused your pain and distress. Fortunately the pancreatitis itself has gotten better quite nicely. The gallstones that were in the plumbing have been swept out by gastroenterology (the procedure they did Thursday) and a stent was left behind to keep things open. Unfortunately, the surgeons were not able to get to your gallbladder safely to get it removed today, because her colon was still quite distended (something that does happen fairly commonly due to the intestinal distress that happens with pancreatitis) -It is safe to get you homewe recommend that you eat a fairly tight/strict low- fat diet for nowgallstones are made of bile, bile is what helps us absorb/digest fatsand so until the gallbladder is out, we do not want to have you "tempt fate" by eating anything fatty that would trigger your gallbladder to squeeze more -It is very unlikely that you would have a recurrence of the symptoms he felt last week while you are at home, before the gallbladder comes out, but certainly if you did we would want you back here right away to get checked out -Over the next week or 2, your intestinal distention should start to go down more and more. At that point it will be possible for the surgeons to be on to reach your gallbladder. Follow-up with Dr. Brasher/[facility] over the next few weeks and you two will be able to re-plan removal of the gallb ladder. they will also coordinate with gastroenterology if needed to facilitate getting the stent removed -Because of the inflammation of the biliary tree (the drain pipe from the liver), and the procedure with the stenting, we will have you on a short course of antibiotics to prevent any type of infection in the biliary treeyou will be on Augmentin (amoxicillin/clavulanic acid) twice a day for 5 more days (10 more dosesnext dose at bedtime tonight) Follow-up with Dr. Herr later this week as well. Pending Studies at Discharge: No Stand-Alone Forms: [facility], Smoking Cessation Medications and DC Order Prescriptions: New oxycodone-acetaminophen [Percocet] 5-325 mg tablet 1 - 2 tab PO Q4H PRN (Reason: pain, initial therapy, max 6 daily) Qty: 12 RF: 0 amoxicillin-pot clavulanate [Augmentin] 875-125 mg tablet 1 tab PO BID Qty: 10 RF: 0 Continued furosemide 40 mg tablet 40 mg PO BID RF: 0 lisinopril 20 mg tablet 20 mg PO DAILY RF: 0 simvastatin 80 mg tablet 80 mg PO HS RF: 0 potassium chloride 10 mEq tablet extended release 10 meq PO BID RF: 0 omeprazole 20 mg capsule,delayed release(DR/EC) 20 mg PO DAILY RF: 0 tamsulosin 0.4 mg capsule 0.4 mg PO HS RF: 0 Discontinued dexamethasone 2 mg tablet 2 mg PO DAILY RF: 0 Discharge Orders: Discharge Order (Routine); Ordered 04/22/21 Ordered By: Alex Paul Admission Data Admit Date/Time: 04/18/21 23:34 Attending Provider: Alex Paul Admit Provider: Tej Martinez Primary Care Provider: Roge Arevalo Other Providers: Ryan Asencio ; Trever Tomas ; Warren Brasher ; Steven Guadarrama Coding Level of Care Code D/C DAY MANAGEMENT <30 MINS Diagnoses Acute pancreatitis K85.90 Acute pancreatitis complication: unspecified Pancreatitis type: unspecified pancreatitis type
[2021-04-22] MEDS ORDERED: AMOXICILLIN/CLAVULANATE 875 MG TAB PO SCH (17:00)
== END 2021-04-22 16:00 | disposition home or self-care (01) | DRG 444 ==
LOC: ED 13:41 → 2N 23:34 → SUATTDRO 23:34 → 2N 04-19 00:30 → 3E 04-20 21:47